=== PATIENT | male | born 1950 | race Caucasian/White ===

== ENCOUNTER → 2024-05-03 | Outpatient (CLI) | payer MEDICARE, SELFPAY ==
[2024-05-03 16:25] LABS: PSA,Total- Diagnostic 8.39 ng/mL (0.00-4.00)
== END | disposition home or self-care (01) ==
PROVIDERS: PCP Internal Medicine; Referring Provider Nurse Practitioner; Visit Provider Nurse Practitioner
DX: R97.20 Elevated prostate specific antigen [PSA] (principal)
CPT/HCPCS: 36415; 84153

== ENCOUNTER → 2024-05-30 | Outpatient (CLI) | payer MEDICARE, SELFPAY ==
--- NOTE | 2024-05-30 13:00 | PROSBIL_PTH ---
PATIENT: CLARISSA TRAN LOC: [facility] U#:[id number] AGE/SX: 74/M ROOM: RE05/30/[address]: Dr. Damion Walter MD : 1950 BED: DIS: 05/30/2024 SPEC #: [id number] RECD: 05/31/24 08:54 STATUS: DIANE REGregor #: [id number] CUCA: 05/30/24 13:[address]: Damion Walter DEPT: SURGICAL PATHOLOGY RECD BY: Galindo Lam ENTERED: 05/31/24 08:55 SP TYPE: PROST BX CARLY DR: Dr. Nolan Tate MD Tissues: A - PROSTATE RIGHT B - PROSTATE RIGHT C - PROSTATE RIGHT D - PROSTATE LEFT E - PROSTATE LEFT F - PROSTATE LEFT Procedures: PROSTATE BX HEADER OPERATION: Prostate biopsy PRE-OP DIAGNOSIS: Elevated PSA TISSUE SUBMITTED: A - Right apex, B - Right mid, C - Right base, D - Left apex, E - Left mid, F - Left base MICROSCOPIC DIAGNOSIS A. Prostate, right apex, biopsy: - Adenocarcinoma Taylor 3+4(30%)=7, 1/1 core, involving 20% of the tissue. B. Prostate, right mid, biopsy: - Benign prostate tissue. C. Prostate, right base, biopsy: - Benign prostate tissue. D. Prostate, left apex, biopsy: - Benign prostate tissue with focal active chronic inflammation. E. Prostate, left mid, biopsy: - Benign prostate tissue. F. Prostate, left base, biopsy: - Benign prostate tissue. MICROSCOPIC DESCRIPTION Slides are reviewed. GROSS DESCRIPTION A. Received in formalin in a container labeled with the patient's name, date of , and RA is a 1.5 x 0.1 cm white-traylor and wispy core biopsy of soft tissue. Submitted in toto in A1. B. Received in formalin in a container labeled with the patient's name, date of , and RM is a 1.2 x 0.1 cm white-traylor and wispy core biopsy of soft tissue. Submitted in toto in B1. C. Received in formalin in a container labeled with the patient's name, date of , and RB is a 1.0 x 0.1 cm white-traylor and wispy core biopsy of soft tissue. Submitted in toto in C1. D. Received in formalin in a container labeled with the patient's name, date of , and LA is a 1.2 x 0.1 cm white-traylor and wispy core biopsy of soft tissue. Submitted in toto in D1. E. Received in formalin in a container labeled with the patient's name, date of , and LM is a 0.8 x 0.1 cm white-traylor and wispy core biopsy of soft tissue. Submitted in toto in E 1. F. Received in formalin in a container labeled with the patient's name, date of , and LB is a 1.1 x 0.1 cm white-traylor and wispy core biopsy of soft tissue. Submitted in toto in F1. [facility] 05-31-2024 CPT: G0146
== END | disposition home or self-care (01) ==
LOC: LABSPEC 15:40
PROVIDERS: PCP Internal Medicine; Referring Provider Urology; Visit Provider Urology
DX: R97.20 Elevated prostate specific antigen [PSA] (principal)
CPT/HCPCS: 88305; G0416

== ENCOUNTER 2024-11-30 07:53 | Emergency (ER) | payer MEDICARE, SELFPAY ==
[2024-11-30 07:54] VITALS: BP 182/102; PULSE 95; RESP 18; TEMP 37.2; O2SAT 97
[2024-11-30 08:00] VITALS: BMI 37.0
--- NOTE | 2024-11-30 08:13 | EX.ED.DYSGE1 ---
HPI History of Present Illness Chief Complaint: Hypertension Detail of Chief Complaint: Elevated blood pressure reading prior to surgery Informant: patient and other (Hospital staff from preanesthesia/presurgery reunit called because of elevated blood pressure) Onset/Context/Timing Onset: Today Context: - (Presumed sudden) Timing: Continuous Quality: Elevated blood pressure Location: Cardiovascular Current Severity: Moderate Maximum Severity: Moderate Worsened by: Patient did not take his morning hypertensive meds because he was scheduled Relieved by: Not applicable Associated Symptoms Associated Symptoms: Slight bifrontal headache Narrative Narrative: Patient is a 74-year-old male. He has history of hypertension and BPH. He was scheduled to have urologic surgery by Dr. Walter. His blood pressure was elevated. He was sent to the ER. We were informed that he has not taken his medicine in 6 months. He has not seen a doctor in 6 months because his doctor retired. He reports he is compliant with his medication. He did not take this morning's meds because he was instructed not to. He denies double vision, blurred vision loss of vision. Eyes baker ears decreased hearing. Nuys trouble with speech or swallowing. Denies chest pressure, tach, tightness, heaviness, pain or dyspnea. Nuys dyspnea on exertion or orthopnea. He denies abdominal pain, nausea or vomiting. He denies skin lesion. He does have swelling of his legs. He states he is on a water pill. He denies orthopnea or PND. Prior similar symptoms: No Recent Illness/Hospitalization: No PFSH PFSH Medical History Wears dentures Wears glasses Alcohol use Heartburn Former smoker Cardiology follow-up encounter Eyelid abnormality BPH (benign prostatic hyperplasia) Nocturia Elevated PSA Urinary incontinence Hypertension Prostate cancer Home Medications ?Medication ?Instructions ?Recorded ?Last Taken ?Type amlodipine 5 mg tablet 5 mg PO QDAY 06/23/24 11/29/24 History losartan 50 mg-hydrochlorothiazide 1 tab PO QDAY 06/23/24 11/29/24 History 12.5 mg tablet tamsulosin 0.4 mg capsule 0.4 mg PO QDAY 06/23/24 11/29/24 History clonidine HCl 0.1 mg tablet 0.1 mg PO BID #60 tabs 11/30/24 Unknown Rx Allergy/AdvReac Type Severity Reaction Status Date / Time No Known Allergies Allergy Verified 11/30/24 07:57 Family History Father Cancer skin Brother Heart problem Surgical History Hx of prostate biopsy Hx of hernia repair Hx of cataract extraction Social History Smoking Status: Former smoker alcohol intake: never ROS ROS ED Constitutional Constitutional ED: Denies chills, fever(s), subjective, sweats or weight loss Eyes Eyes: Denies blurry vision, change in vision or diplopia ENT ENT ED: Denies rhinorrhea or sore throat Cardiovascular Cardiovascular: Denies chest pain, orthopnea, palpitations or paroxysmal nocturnal dyspnea Respiratory/Chest Respiratory/Chest: Denies cough, dyspnea, dyspnea on exertion, orthopnea or paroxysmal nocturnal dyspnea Gastrointestinal Gastrointestinal: Denies abdominal pain, nausea or vomiting Musculoskeletal Musculoskeletal: Denies arthralgias, back pain or myalgias Integumentary Denies rash Neurologic Neurologic: Reports headache(s); Denies paresthesias or weakness Hematologic/Lymphatic Hematologic/Lymphatic: Reports systems reviewed and no addt'l complaints, except as documented EXAM Physical Exam Const Vital Signs: 11/30/24 07:54 11/30/24 09:53 11/30/24 10:37 Temperature 98.9 F Temperature Source Oral Pulse Rate 95 74 82 Respiratory Rate 18 16 Blood Pressure 182/102 H 196/127 H 190/103 H Blood Pressure Mean 128 150 132 Pulse Ox 97 100 Oxygen Delivery Method Room Air Room Air Positive well nourished and well developed Constitutional Narrative: Blood pressure is slightly elevated 182/102. Repeat was 214/124. Patient appears no distress. BMI is 37. General Appearance ED: well developed; Negative for pallor HEENT Reports moist mucous membranes HEENT Narrative: Head is atraumatic and normocephalic. Ears normal Eyes PERRL and EOMs intact bilaterally General Eye ED: Negative for pale conjunctiva or scleral icterus Neck no lymphadenopathy, supple and no JVD Chest Wall inspection of chest normal and palpation of chest normal Resp normal respiratory effort and clear to auscultation bilaterally Cardio regular rate, regular rhythm, S1 normal heart sound, S2 normal heart sound and no murmurs GI normal to inspection, nondistended, normoactive bowel sounds, non-tender, non-distended and no masses Extremity Extremity Narrative: Otherwise unremarkable. General Extremety ED: Yes edema General Extremity: edema Neuro CN's II-XII intact bilaterally and no sensory deficits noted Sensorium / Orientation: alert Motor Exam: strength 5/5 throughout Psych mental status grossly normal Skin no rashes or lesions noted, no wounds and skin turgor normal General Skin Exam: elasticity normal; Negative for jaundice or pallor MDM MDM MDM Narrative Medical decision making narrative: Patient with asymptomatic hypertension. Suspect this is due to the fact that he did not take his amlodipine, losartan hydrochlorothiazide combination. Will obtain blood work since he has not had any recently. Will monitor his blood pressure. He will need follow-up with a doctor since his doctor retired and the doctor was assigned to left the area. As 0900 blood pressure was 195/135. Will order patient's morning antihypertensive meds. Lab Data Labs: Laboratory Results - last 24 hr 11/30/24 11/30/24 08:10 09:00 Sodium 139 Potassium 4.0 Chloride 101 Carbon Dioxide 27.6 Anion Gap 11 BUN 15 Creatinine 1.04 Estim Creat Clear Calc 82.28 Est GFR (MDRD) Non-Af 76 BUN/Creatinine Ratio 14.0 Glucose 115 H Calcium 9.3 Urine Color Yellow Urine Clarity Clear Urine pH 7.0 Ur Specific Orosi 1.010 Urine Protein 15 H Urine Glucose (UA) Normal Urine Ketones Negative Urine Occult Blood Negative Urine Nitrite Negative Urine Bilirubin Negative Urine Urobilinogen Normal Ur Leukocyte Esterase Negative Urine RBC 0 SEEN Urine WBC 0 SEEN Ur Squamous Epith Cells 0 SEEN Urine Bacteria 0 SEEN Urine Mucus 0 SEEN Treatment and Re-Evaluation :: The patient was reassessed blood pressure was 194/127. Clonidine was ordered and will reassess. Patient was reassessed at 1145. His blood pressure is 148/104. Will discharge with prescription for clonidine. He has an appointment this coming Thursday to see Dr. Fco dejesus. Discharge Plan Triage Chief Complaint: Hypertension ED Provider: Dex Lopes Dx/Rx/DC Orders Clinical Impression: Asymptomatic hypertensive urgency, Prostate cancer Instructions: ED High Blood Pressure Hypertension Prescriptions: New clonidine HCl 0.1 mg tablet 0.1 mg PO BID Qty: 60 0RF No Action amlodipine 5 mg tablet 5 mg PO QDAY losartan-hydrochlorothiazide 50-12.5 mg tablet 1 tab PO QDAY tamsulosin 0.4 mg capsule 0.4 mg PO QDAY Primary Care Provider: Care Physician,No Primary Referrals: Santiago Fernández MD [Non-Staff, Family Practice] - Keep [facility]y appointment Care Physician,No Primary [Primary Care Provider, Medical] Print Language: Khmer Disposition Disposition: Home, Self Care
[2024-11-30 09:04] LABS: Anion Gap 11 (5-15); BUN 15 mg/dL (4-19); BUN/Creat Ratio 14.0 RATIO (10-20); Calcium,Total 9.3 mg/dL (7.6-11.0); Carbon Dioxide 27.6 mmol/L (21.0-32.0); Chloride 101 mmol/L (98-108); Estimated Creatinine Clearance 82.28 ml/min (50-250); Glucose 115 mg/dL (70-99); Potassium 4.0 mmol/L (3.3-5.1)
[2024-11-30 09:07] LABS: Mucous, Urine 0 SEEN /hpf (<or=2+); Red Blood Cells-Urine 0 SEEN /hpf (0-5); Squamous Epithelial Cells - UA 0 SEEN /hpf (0-5)
[2024-11-30 09:18] LABS: Color, Urine Yellow (Yellow); Glucose, Dipstick Normal (Normal); Ketone-Dipstick Negative (Negative); Leukocyte Esterase-Dipstick Negative /ul (Negative); Nitrite-Dipstick Negative (Negative); Occult Blood-Urine Negative /ul (Negative); Protein-Dipstick 15 mg/dl (Negative); Specific Gravity, Urine 1.010 (1.002-1.030); Urine Bilirubin Dipstick Negative (Negative)
[2024-11-30 09:53] VITALS: BP 196/127; PULSE 74
[2024-11-30 10:37] VITALS: BP 190/103; PULSE 82; RESP 16; O2SAT 100
[2024-11-30 12:12] VITALS: BP 164/105; PULSE 87; RESP 16; TEMP 36.6; O2SAT 100
== END 2024-11-30 12:12 | disposition home or self-care (01) ==
PROVIDERS: Emergency Provider Emergency Medicine; Visit Provider Emergency Medicine
DX: I16.0 Hypertensive urgency (principal); C61 Malignant neoplasm of prostate; I10 Essential (primary) hypertension; Z79.899 Other long term (current) drug therapy; Z87.891 Personal history of nicotine dependence
CPT/HCPCS: 80048; 81001; 99284

== ENCOUNTER 2024-12-16 05:53 | Day surgery (SDC) | payer MEDICARE, SELFPAY ==
--- NOTE | 2024-11-24 17:06 | PAT.ANESEVAL ---
Pre-Assessment Diagnosis/Proposed Procedure Planned Operative Procedure(s): SPACE OAR Anesthesia History Anesthesia History - vice president quality improvement: Anesthesia History - vice president quality improvement Hx Hospitalization No 11/24/24 13:02 Any Problems With Anesthesia No 11/24/24 13:02 Cholinesterase deficiency No 11/24/24 13:02 You/Your Family Experience No 11/24/24 13:02 fever (hyperthermia) with Relationship Recent Exposure to Contagious Disease Does patient have nerve No 11/24/24 13:02 stimulator Patient instructed to have device shut off --Does patient have Pacemaker or ICD? When Was Last Pacemaker Check QUESTION #4 FULL TEXT: You/Your Family Experience fever (hyperthermia) with Anesthesia Last Oral Intake Last Oral intake: Last Oral Intake NPO since Meds taken in AM with sips of water? Meds patient instructed to take am of surgery PONV PONV - vice president quality improvement: PONV - vice president quality improvement Female No 11/24/24 13:02 HX of Motion Sickness No 11/24/24 13:02 HX of N/V After Surgery No 11/24/24 13:02 Non-Smoker Yes 11/24/24 13:02 Duration of Surgery greater No 11/24/24 13:02 than 60 minutes Number of Risk Factors 1 11/24/24 13:02 PONV Score Low Risk 11/24/24 13:02 Height & Weight Height & Weight: Anesthesia: Height & Weight Height 5 ft 10 in 11/18/24 09:36 Respiratory Assessment Respiratory Assessment - vice president quality improvement: Respiratory Tract Infection Hx - vice president quality improvement Hx Respiratory Tract Infection No 11/24/24 13:02 STOP Sleep Apnea STOP Sleep Apnea - vice president quality improvement: STOP Sleep Apnea - vice president quality improvement Hx Hypertension Yes: CONTROLLED WITH MEDS 11/24/24 13:02 Hx Sleep Apnea No 11/24/24 13:02 CPAP BIPAP Do you snore loudly (louder No 11/24/24 13:02 than talking or can be heard Do you often feel tired/ No 11/24/24 13:02 fatigued/ sleepy during daytime? Has anyone observed you stop No 11/24/24 13:02 breathing during sleep? STOP Results Negative 11/24/24 13:02 QUESTION #5 FULL TEXT : Do you snore loudly (louder than talking or can be heard through closed doors)? 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 Specify any problems Hx of Preganancy in last 3 N/A 11/24/24 13:02 Months Nurse Filling Out Transfusion [email or web address] 11/24/24 13:02 & Questions: Date: 11/24/24 11/24/24 13:02 Time: 13:06 11/24/24 13:02 Patient unable to answer at this time (ie. confused, unrespo /Reproduction History /Reproductive History - vice president quality improvement: /Reproductive Hx- vice president quality improvement Hx Now No 11/24/24 13:02 Gestational Age (in weeks): EDC: Hx Hx Para Hx Section SAB No 11/24/24 13:02 PFSH Medical History Wears dentures Wears glasses Alcohol use Heartburn Former smoker Cardiology follow-up encounter Eyelid abnormality BPH (benign prostatic hyperplasia) Nocturia Elevated PSA Urinary incontinence Hypertension Prostate cancer Home Medications ?Medication ?Instructions ?Recorded ?Last Taken ?Type amlodipine 5 mg tablet 5 mg PO QDAY 06/23/24 Unknown History losartan 50 mg-hydrochlorothiazide 1 tab PO QDAY 06/23/24 Unknown History 12.5 mg tablet tamsulosin 0.4 mg capsule 0.4 mg PO QDAY 06/23/24 Unknown History Allergy/AdvReac Type Severity Reaction Status Date / Time No Known Allergies Allergy Verified 11/24/24 13:00 Family History Father Cancer skin Brother Heart problem Surgical History Hx of prostate biopsy Hx of hernia repair Hx of cataract extraction Social History Smoking Status: Former smoker alcohol intake: never Audit: Pertinent Findings Pertinent Findings EKG Perinent findings: October 13, 2023. Normal sinus rhythm. Stress test pertinent findings: Negative for ischemia or infarct. Echo (EF%) pertinent findings: September 11, 2023. EF is 60 to 65%. Moderate to severe dilation of the ascending aorta at 4.7 cm. Aortic root is 4.1 cm. Mild AI. Consult pertinent findings: July 13, 2024. Dr. Montoya. 1. Aneurysm of ascending aorta-4.7 x 4.6 cm in 2022. Apparently unchanged in 2023. Continue losartan. 2. Aortic root dilation?at 4.1 cm. With mild AI. 3. Dyspnea on exertion-negative stress test for ischemia or infarct. EF is normal. Patient is euvolemic. BMI of 40 is probably contributing to this. Patient is exercising more and shortness of breath is decreasing. 4. Hypertension-controlled 5. MARCI?compliant with CPAP. Recommendation Anesthesia Recommendation Anesthesia recommendation: OPTIMIZED for anesthesia
[2024-11-30 06:58] VITALS: BP 207/115; PULSE 100; RESP 16; TEMP 36.4; O2SAT 93; BMI 36.4
[2024-11-30] MEDS: Lactated Ringers 1,000 ML 15 ML IV (07:22)
--- NOTE | 2024-11-30 07:58 | PCM.PRE.AN2 ---
ASA Classification* ASA Classification ASA Classification: 3 Assessment & Plan Anesthesia* Anesthesia Assessment Anesthesia Assessment: Discussed sedation and/or anesthesia options, risks, benefits, and alternatives with patient/parents/legal guardian/POA. Questions invited. The patient/parents/legal guardian/POA seems to understand and agrees to proceed with anesthesia plan. Reviewed the physical assessment, medical history, allergy history and patient home medications list prior to surgery/procedure/anesthetic and documented any changes. Performed airway and anesthesia risk assessments. Procedural Plan Procedural Plan:: NOT optimized for anesthesia Add'l anesthesia plan details: Hypertensive crisis. In the setting of not having a current primary care. Transferred to the ED. Cancel procedure today. Anesthesia Type Anesthesia Type: MAC (Procedure canceled. 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 When Was Last Pacemaker Check QUESTION #4 FULL TEXT: You/Your Family Experience fever (hyperthermia) with Anesthesia Last Oral Intake Last Oral intake: Last Oral Intake NPO since 20:00 11/30/24 06:58 Meds taken in AM with sips of water? Meds patient instructed to take am of surgery PONV PONV - master mechanic: PONV - master mechanic Female No 11/24/24 13:02 HX of Motion Sickness No 11/24/24 13:02 HX of N/V After Surgery No 11/24/24 13:02 Non-Smoker Yes 11/24/24 13:02 Duration of Surgery greater No 11/24/24 13:02 than 60 minutes Number of Risk Factors 1 11/24/24 13:02 PONV Score Low Risk 11/24/24 13:02 Height & Weight Height & Weight: Anesthesia: Height & Weight Height 5 ft 10 in 11/30/24 06:58 Weight: 115.212 kg 11/30/24 06:58 Body Mass Index (BMI) 36.4 11/30/24 06:58 Respiratory Assessment Respiratory Assessment - master mechanic: Respiratory Tract Infection Hx - master mechanic Hx Respiratory Tract Infection No 11/24/24 13:02 STOP Sleep Apnea STOP Sleep Apnea - master mechanic: STOP Sleep Apnea - master mechanic Hx Hypertension Yes: CONTROLLED WITH MEDS 11/24/24 13:02 Hx Sleep Apnea No 11/24/24 13:02 CPAP BIPAP Do you snore loudly (louder No 11/24/24 13:02 than talking or can be heard Do you often feel tired/ No 11/24/24 13:02 fatigued/ sleepy during daytime? Has anyone observed you stop No 11/24/24 13:02 breathing during sleep? STOP Results Negative 11/24/24 13:02 QUESTION #5 FULL TEXT : Do you snore loudly (louder than talking or can be heard through closed doors)? 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 Specify any problems Hx of Preganancy in last 3 N/A 11/24/24 13:02 Months Nurse Filling Out Transfusion [email or web address] 11/24/24 13:02 & Questions: Date: 11/24/24 11/24/24 13:02 Time: 13:06 11/24/24 13:02 Patient unable to answer at this time (ie. confused, unrespo /Reproduction History /Reproductive History - master mechanic: /Reproductive Hx- master mechanic Hx Now No 11/24/24 13:02 Gestational Age (in weeks): EDC: Hx Hx Para Hx Section SAB No 11/24/24 13:02 PFS Medical History Wears dentures Wears glasses Alcohol use Heartburn Former smoker Cardiology follow-up encounter Eyelid abnormality BPH (benign prostatic hyperplasia) Nocturia Elevated PSA Urinary incontinence Hypertension Prostate cancer Home Medications ?Medication ?Instructions ?Recorded ?Last Taken ?Type amlodipine 5 mg tablet 5 mg PO QDAY 06/23/24 11/29/24 History losartan 50 mg-hydrochlorothiazide 1 tab PO QDAY 06/23/24 11/29/24 History 12.5 mg tablet tamsulosin 0.4 mg capsule 0.4 mg PO QDAY 06/23/24 11/29/24 History Allergy/AdvReac Type Severity Reaction Status Date / Time No Known Allergies Allergy Verified 11/30/24 07:57 Family History Father Cancer skin Brother Heart problem Surgical History Hx of prostate biopsy Hx of hernia repair Hx of cataract extraction Social History Smoking Status: Former smoker alcohol intake: never Review of Systems (Anesthesia) ROS Narrative System reviewed and no additional complaints, except as documented.
[2024-11-30 08:00] VITALS: BP 207/115; PULSE 100; RESP 16; TEMP 36.4; O2SAT 93
--- NOTE | 2024-12-08 16:02 | PAT.ANESEVAL ---
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 When Was Last Pacemaker Check QUESTION #4 FULL TEXT: You/Your Family Experience fever (hyperthermia) with Anesthesia Last Oral Intake Last Oral intake: Last Oral Intake NPO since 20:00 11/30/24 06:58 Meds taken in AM with sips of water? Meds patient instructed to take am of surgery PONV PONV - executive vice president of sales: PONV - executive vice president of sales Female No 11/24/24 13:02 HX of Motion Sickness No 11/24/24 13:02 HX of N/V After Surgery No 11/24/24 13:02 Non-Smoker Yes 11/24/24 13:02 Duration of Surgery greater No 11/24/24 13:02 than 60 minutes Number of Risk Factors 1 11/24/24 13:02 PONV Score Low Risk 11/24/24 13:02 Height & Weight Height & Weight: Anesthesia: Height & Weight Height 5 ft 10 in 11/30/24 06:58 Weight: 115.212 kg 11/30/24 06:58 Body Mass Index (BMI) 36.4 11/30/24 06:58 Respiratory Assessment Respiratory Assessment - executive vice president of sales: Respiratory Tract Infection Hx - executive vice president of sales Hx Respiratory Tract Infection No 11/24/24 13:02 STOP Sleep Apnea STOP Sleep Apnea - executive vice president of sales: STOP Sleep Apnea - executive vice president of sales Hx Hypertension Yes: CONTROLLED WITH MEDS 11/24/24 13:02 Hx Sleep Apnea No 11/24/24 13:02 CPAP BIPAP Do you snore loudly (louder No 11/24/24 13:02 than talking or can be heard Do you often feel tired/ No 11/24/24 13:02 fatigued/ sleepy during daytime? Has anyone observed you stop No 11/24/24 13:02 breathing during sleep? STOP Results Negative 11/24/24 13:02 QUESTION #5 FULL TEXT : Do you snore loudly (louder than talking or can be heard through closed doors)? 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 Specify any problems Hx of Preganancy in last 3 N/A 11/24/24 13:02 Months Nurse Filling Out Transfusion [email or web address] 11/24/24 13:02 & Questions: Date: 11/24/24 11/24/24 13:02 Time: 13:06 11/24/24 13:02 Patient unable to answer at this time (ie. confused, unrespo /Reproduction History /Reproductive History - executive vice president of sales: /Reproductive Hx- executive vice president of sales Hx Now No 11/24/24 13:02 Gestational Age (in weeks): EDC: Hx Hx Para Hx Section SAB No 11/24/24 13:02 PFSH Medical History Wears dentures Wears glasses Alcohol use Heartburn Former smoker Cardiology follow-up encounter Eyelid abnormality BPH (benign prostatic hyperplasia) Nocturia Elevated PSA Urinary incontinence Hypertension Prostate cancer Home Medications ?Medication ?Instructions ?Recorded ?Last Taken ?Type amlodipine 5 mg tablet 5 mg PO QDAY 06/23/24 11/29/24 History losartan 50 mg-hydrochlorothiazide 1 tab PO QDAY 06/23/24 11/29/24 History 12.5 mg tablet tamsulosin 0.4 mg capsule 0.4 mg PO QDAY 06/23/24 11/29/24 History clonidine HCl 0.1 mg tablet 0.1 mg PO BID #60 tabs 11/30/24 Unknown Rx Allergy/AdvReac Type Severity Reaction Status Date / Time No Known Allergies Allergy Verified 11/30/24 07:57 Family History Father Cancer skin Brother Heart problem Surgical History Hx of prostate biopsy Hx of hernia repair Hx of cataract extraction Social History Smoking Status: Former smoker alcohol intake: never Audit: Pertinent Findings HISTORY of Pertinent Findings History of Pertinent Findings: EKG Pertinent Findings EKG Perinent findings October 13, 2023. Normal 11/24/24 17:10 sinus rhythm. Stress Test Pertinent Findings Stress test pertinent findings Negative for ischemia or 11/24/24 17:26 infarct. Echo Pertinent Findings Echo (EF%) pertinent findings September 11, 2023. EF is 60 to 11/24/24 17:16 65%. Moderate to severe dilation of the ascending aorta at 4.7 cm. Aortic root is 4.1 cm. Mild AI. Consult Pertinent Findings Consult pertinent findings July 13, 2024. Dr. Montoya. 11/24/24 17:26 1. Aneurysm of ascending aorta-4.7 x 4.6 cm in 2022. Apparently unchanged in 2023. Continue losartan. 2. Aortic root dilation?at 4.1 cm. With mild AI. 3. Dyspnea on exertion- negative stress test for ischemia or infarct. EF is normal. Patient is euvolemic. BMI of 40 is probably contributing to this. Patient is exercising more and shortness of breath is decreasing. 4. Hypertension-controlled 5. MARCI?compliant with CPAP. Pertinent Findings Additional pertinent findings: Per note scanned in medical record. Patient presented for surgery on 11/30/2024 and had to be canceled due to hypertensive crisis. Needs evaluated prior to being rescheduled. Has appointment in [facility] to work on 12/06/2024. Per note on 12/06/2024 patient is medically cleared but will need cardiac clearance. We told him to see cardiology. Note Dr. Gonzalez wants to proceed without cardiac clearance. BP has been stable and patient can't see cardiology until end of December Recommendation Anesthesia Recommendation Anesthesia recommendation: OPTIMIZED for anesthesia (Note scanned in epic states that Dr. Hilton wants to proceed without cardiac clearance. BP has been stable and patient cannot see cardiology until end of December.)
[2024-12-16] VITALS (9 sets, daily range): BP systolic 134–145; BP diastolic 94–103; PULSE 76–95; RESP 16–18; TEMP 36.3–36.7; O2SAT 89–98; BMI 37.0
--- OUTSIDE RECORDS SUMMARY | 2024-12-16 05:56 | XMS RPT_ITS | CCD ---
Author Organization [facility] Care Team Providers Care All Round Butcher Name Role Phone Yobani LENNON, Austin Murillo Unavailable Yobani LENNON, Austin Murillo Unavailable Marc LENNON, Dr. Bernal Unavailable [phone] Sammy CLINICAL DATA ANALYST, Eli Chow Unavailable Unavailable Nam CLINICAL DATA ANALYST, Lizzy Unavailable Unavailable COTTON WASHER-C, Santino Salgado Unavailable Trevon RN, Taya Platt Unavailable Unavaila enrrique Ryan PA-C, Ayaka Montemayor Unavailable Partha CLINICAL DATA ANALYST, Laurence L Unavailable Unavailab le Rossi CLINICAL DATA ANALYST, Sri M Unavailable Unavailab le La Dolores CLINICAL DATA ANALYST, Génesis De La Fuente Unavailable Unavailab le Vess CLINICAL DATA ANALYST, Nerane L Unavailable Unavailable Wengerd CLINICAL DATA ANALYST, Allyson Unavailable Unavailabl e Unavailable Unavailable Unavailable Unavailable Lea LENNON, Dr. Francisco Primary Care Provider [phone] Milagro Mckeon Attending Provider [phone] Milagro Mckeon Referring Provider Jose Angel LENNON, Dr. Damion Leal Attending Provider Dr. Damion Walter MD Referring Provider BRANDEN MADERA MD Attending UnavailDR ERMELINDA Bruno MD Primary Care Unavailable ERMELINDA TATE MD Admitting Unavailable ERMELINDA TATE MD Primary Care Unavailable ERMELINDA TATE MD Consulting Unavailable ERMELINDA TATE MD Attending Unavailable PROVIDER, UNKNOWN Consulting Unavailable PROVIDER, UNKNOWN Consulting Unavailable PROVIDER, UNKNOWN Consulting Unavailable BRANDEN MADERA MD Admitting UnavailBRANDEN Vazquez MD Primary Care Unavailabl e BRANDEN MADERA MD Attending Unavailabl e SANTOS DENISE MD Referring Unavailable ERMELINDA TATE MD Consulting Unavailable PROVIDER, UNKNOWN Consulting Unavailable PROVIDER, UNKNOWN Consulting Unavailable PROVIDER, UNKNOWN Consulting Unavailable BRANDEN MADERA MD Primary Care Unavailabl e BRANDEN MADERA MD Attending Unavailabl e ERMELINDA TATE MD Consulting Unavailable BRANDEN MAEDRA MD Admitting Unavailabl e PROVIDER, UNKNOWN Consulting Unavailable PROVIDER, UNKNOWN Consulting Unavailable PROVIDER, UNKNOWN Consulting Unavailable BRANDEN MADERA MD Admitting Unavailabl e BRANDEN MADERA MD Primary Care Unavailabl BRANDEN Khoury MD Attending Unavailabl e ERMELINDA TATE MD Consulting Unavailable PROVIDER, UNKNOWN Consulting Unavailable PROVIDER, UNKNOWN Consulting Unavailable PROVIDER, UNKNOWN Consulting Unavailable SANTOS DENISE MD Attending Unavailable SANTOS DENISE MD Admitting Unavailable ERMELINDA TATE MD Consulting Unavailable ERMELINDA TATE MD Referring Unavailable SANTOS DENISE MD Primary Care Unavailable PROVIDER, UNKNOWN Consulting Unavailable PROVIDER, UNKNOWN Consulting Unavailable PROVIDER, UNKNOWN Consulting Unavailable ERMELINDA TATE MD Consulting Unavailable ERMELINDA TATE MD Attending Unavailable ERMELINDA TATE MD Primary Care Unavailable ERMELINDA TATE MD Admitting Unavailable PROVIDER, UNKNOWN Consulting Unavailable PROVIDER, UNKNOWN Consulting Unavailable PROVIDER, UNKNOWN Consulting Unavailable ERMELINDA TATE MD Primary Care Unavailable ERMELINDA TATE MD Attending Unavailable ERMELINDA TATE MD Admitting Unavailable ERMELINDA TATE MD Consulting Unavailable PROVIDER, UNKNOWN Consulting Unavailable PROVIDER, UNKNOWN Consulting Unavailable PROVIDER, UNKNOWN Consulting Unavailable ERMELINDA TATE MD Primary Care Unavailable AUSTIN CHAMBERLAIN Consulting Unavailable ERMELINDA TATE MD Attending Unavailable ERMELINDA TATE MD Admitting Unavailable PROVIDER, UNKNOWN Consulting Unavailable PROVIDER, UNKNOWN Consulting Unavailable PROVIDER, UNKNOWN Consulting Unavailable ERMELINDA TATE MD Consulting Unavailable ERMELINDA TATE MD Attending Unavailable ERMELINDA TATE MD Admitting Unavailable ERMELINDA TATE MD Primary Care Unavailable PROVIDER, UNKNOWN Consulting Unavailable PROVIDER, UNKNOWN Consulting Unavailable PROVIDER, UNKNOWN Consulting Unavailable ERMELINDA TATE MD Primary Care Unavailable ERMELINDA TATE MD Consulting Unavailable ERMELINDA TATE MD Attending Unavailable ERMELINDA TATE MD Admitting Unavailable PROVIDER, UNKNOWN Consulting Unavailable PROVIDER, UNKNOWN Consulting Unavailable PROVIDER, UNKNOWN Consulting Unavailable NAM, ARVIND K Consulting Unavailable NAM, ARVIND K Attending Unavailable ARVIND GOMES K Admitting Unavailable MIREYA, ARVIND K Primary Care Unavailable PROVIDER, UNKNOWN Consulting Unavailable PROVIDER, UNKNOWN Consulting Unavailable Lea LENNON, Dr. Francisco Primary Care Provider Lea LENNON, Dr. Francisco Referring Provider Margareth DUARTE, Dr. Escobedo Attending Provider Lea LENNON, Dr. Francisco Primary Care Physician Margareth DUARTE, Dr. Escobedo Attending Physician Margareth DUARTE, Dr. Escobedo Referring Provider Moses LENNON, Dr. Kowalski Emergency Department Physician Care Physician, No Primary Primary Care Physicia n Unavailable Arvind Zuluaga Referring Unavailable Care Physician, No Primary Primary Care Unava ilable Arvind Zuluaga Attending Unavailable Jose Angel, Damion Leal Attending Unavailable Jose Angel, Damion Leal Referring Unavailable Care Physician, No Primary Primary Care Unava ilable Dex Lopes Attending Unavailable Care Physician, No Primary Primary Care Unava ilable Jose Angel, Damion Leal Attending Unavailable Jose Angel, Damion Leal Referring Unavailable Latouf, Butros Primary Care Unavailable Latouf, Butros Primary Care Unavailable Latouf, Butros Referring Unavailable Arvind Zuluaga Attending Unavailable Jose Angel, Damion Leal Referring Unavailable Latouf, Butros Primary Care Unavailable Arvind Zuluaga Attending Unavailable Arvind Zuluaga Attending Unavailable Latouf, Butros Referring Unavailable Latouf, Butros Primary Care Unavailable Latouf, Butros Primary Care Unavailable Maggi Wilson Attending Unavailable Latouf, Butros Primary Care Unavailable [place], Milagro Attending Unavailable [place], Milagro Referring Unavailable Arvind Zuluaga Referring Unavailable Latouf, Butros Primary Care Unavailable Arvind Zuluaga Attending Unavailable Medications Current Medications Medication Drug Class(es) Dates Sig (Normalized) Sig (Original) amLODIPine 5 mg oral tablet (19 sources) Dihydropyridine Calcium Channel Calista Start: 06-23-2024 take 1 tablet by mouth once daily Amlodipine 5 mg tablet Active 5 mg PO daily June 23, 2024 12:00am Non-compliance of drug therapy Start: 02-12-2023 amLODIPine 5 m g tablet ; 1 (one) Tablet qd for 0 days Quantity: 30 {Tablet} Refills: 5 Ordered: 12-Feb-2023 LEANN BrowningN Lizzy Start: 12-Feb-2023 cloNIDine hydrochloride 0.1 mg oral tablet (1 source) Central alpha-2 Adrenergic Agonist Start: 11-30-2024 take 1 tablet by mouth twice daily hydroCHLOROthiazide 12.5 mg / losartan potassium 50 mg oral tablet (19 sources) Thiazide Diuretic, Angiotensin 2 Receptor Calista Start: 06-23-2024 Losartan-Hydr ochlorothiazi de 50-12.5 mg tablet Active 1 {tbl} PO daily June 23, 2024 12:00am Non-complianc e of drug therapy Start: 07-29-2023 losartan 50 mg -hydrochlorothiazide 12.5 mg tablet ; 2 (two) tablet qd for 90 days Quantity: 180 {Tablet} Refills: 1 Ordered: 29-Jul-2023 MD Austin Chamberlain Start: 29-Jul-2023 Start: 03-19-2023 losartan 50 mg -hydrochlorothiazide 12.5 mg tablet ; 2 (two) tablet qd for 90 days Quantity: 180 {Tablet} Refills: 0 Ordered: 19-Mar-2023 MD Austin Chamberlain Start: 19-Mar-2023 Start: 03-18-2023 End: 06-17-2023 losartan 50 mg-hydrochloroth iazide 12.5 mg tablet ; 2 (two) tablet qd for 90 days Quantity: 180 {Tablet} Refills: 0 Ordered: 19-Mar-2023 MD Austin Chamberlain Start: 19-Mar-2023 End: 17-Jun-2023 Status: Inactive Start: 02-18-2023 losartan 50 mg -hydrochlorothiazide 12.5 mg tablet ; 2 (two) tablet qd for 0 days Quantity: 30 {Tablet} Refills: 0 Ordered: 18-Feb-2023 MD Austin Chamberlain Start: 18-Feb-2023 Start: 02-04-2023 losartan 50 mg -hydrochlorothiazide 12.5 mg tablet ; 2 (two) tablet qd for 0 days Quantity: 30 {Tablet} Refills: 0 Ordered: 04-Feb-2023 MD Austin Chamberlain Start: 04-Feb-2023 tamsulosin hydrochloride 0.4 mg oral capsule (19 sources) alpha-Adrenergic Calista Start: 06-23-2024 take 1 capsule by mouth once daily Tamsulosin 0.4 mg capsule Active 0.4 mg PO daily June 23, 2024 12:00am Complies with drug therapy Start: 12-15-2022 tamsulosin 0.4 mg capsule ; 1 (one) capsule qd for 0 days Quantity: 90 {Capsule} Refills: 3 Ordered: 15-Dec-2022 GABY Richey Sri Cheatham Start: 15-Dec-2022 Completed/Discontinued Medications Medication Drug Class(es) Dates Sig (Normalized) Sig (Original) cephalexin 500 mg oral capsule (16 sources) Cephalosporin Antibacterial Start: 02-20-2012 End: 03-01-2012 take 1 capsule by mouth three times daily CEPHALEXIN, 500MG (Oral Capsule) ; 1 Capsule three times daily for 10 days Quantity: 30 {Capsule} Refills: 0 Ordered: 31-Dec-2012 MD Austin Chamberlain Start: 20-Feb-2012 End: 01-Mar-2012 Status: Inactive erythromycin 0.005 mg/mg ophthalmic ointment (16 sources) Macrolide, Macrolide Antimicrobial Start: 05-06-2011 End: 05-11-2011 ERYTHROMYCIN, 5MG/GM (Ophthalmic Ointment) ; 1 applicator(s) three times daily for 5 days Quantity: 3.5 {gram(s)} Refills: 0 Ordered: 06-May-2011 GABY Montenegro Génesis De La Fuente Start: 06-May-2011 End: 11-May-2011 Status: Inactive hydroCHLOROthiazide 12.5 mg / valsartan 160 mg oral tablet (16 sources) Thiazide Diuretic, Angiotensin 2 Receptor Calista Start: 12-08-2022 End: 01-29-2023 Diovan HCT 160 mg-12.5 mg tablet ; 1 (one) Tablet qd for 0 days Quantity: 90 {Tablet} Refills: 1 Ordered: 29-Jan-2023 MD Austin Chamberlain Start: 08-Dec-2022 End: 29-Jan-2023 Status: Inactive losartan potassium 50 mg oral tablet (16 sources) Angiotensin 2 Receptor Calista Start: 04-05-2015 End: 11-03-2018 take 1 tablet by mouth once daily Losartan Potassium 50 MG Oral Tablet ; 1 (one) Tablet qd for 0 days Quantity: 90 {Tablet} Refills: 1 Ordered: 03-Nov-2018 GABY Keene Start: 05-Apr-2015 End: 03-Nov-2018 Status: Inactive meloxicam 15 mg oral tablet (16 sources) Nonsteroidal Anti-inflammatory Drug Start: 11-14-2014 End: 11-03-2018 take 1 tablet by mouth once daily Meloxicam 15 MG Oral Tablet ; 1 (one) Tablet Tablet qd for 0 days Quantity: 30 {Tablet} Refills: 5 Ordered: 03-Nov-2018 GABY Keene Start: 14-Nov-2014 End: 03-Nov-2018 Status: Inactive traMADol hydrochloride 50 mg oral tablet (16 sources) Opioid Agonist Start: 11-07-2015 End: 11-03-2018 take 1 tablet by mouth every four to six hours as needed Ultram 50 MG Oral Tablet ; 1 (one) Tablet every 4-6 hours as needed for 0 days Quantity: 30 {Tablet} Refills: 0 Ordered: 03-Nov-2018 GABY Keene Start: 07-Nov-2015 End: 03-Nov-2018 Status: Inactive Comments: Medication taken as needed. Comment on above: Medication taken as needed. Problems Active Problems Problem Classification Problem Date Documented Date Episodic/Chronic Abdominal hernia (20 sources) Umbilical hernia; Translations: [Umbilical hernia without obstruction or gangrene] 01-29-2023 Episodic Administrative/social admission (20 sources) Issue of repeat prescriptions 11-14-2014 Episodic Cancer of prostate (11 sources) Primary malignant neoplasm of prostate; Translations: [Malignant neoplasm of prostate] Onset: 11-18-2024 06-27-2024 Chronic Essential hypertension (20 sources) Benign hypertension; Translations: [Essential (primary) hypertension] Onset: 12-14-2024 01-29-2023 Chronic Hyperplasia of prostate (20 sources) Benign prostatic hyperplasia; Translations: [Benign prostatic hyperplasia with lower urinary tract symptoms] 01-29-2023 Chronic Hypertension with complications and secondary hypertension (1 source) Hypertensive urgency ; Translations: [Hypertensive urgency] 11-30-2024 Chronic Nonspecific chest pain (20 sources) Chest pain; Translations: [Chest pain, unspecified] 01-29-2023 Episodic Nutritional deficiencies (1 source) Vitamin D deficiency, unspecified; Translations: [Vitamin D deficiency, unspecified] Onset: 05-31-2024 Chronic Other circulatory disease (20 sources) Elevated blood pressure reading without diagnosis of hypertension 02-01-2013 Episodic Other non-traumatic joint disorders (16 sources) Knee pain; Translations: [Pain in right knee] 02-01-2013 Episodic Other nutritional; endocrine; and metabolic disorders (14 sources) Obesity caused by energy imbalance; Translations: [Morbid (severe) obesity due to excess calories] 06-16-2023 Chronic Other skin disorders (16 sources) Skin tag; Translations: [Other hypertrophic disorders of the skin] 09-12-2013 Episodic Other upper respiratory infections (20 sources) Acute sinusitis; Translations: [Acute sinusitis, unspecified] 02-20-2012 Episodic Poisoning by nonmedicinal substances (20 sources) Bee sting; Translations: [Toxic effect of venom of bees, accidental (unintentional), initial encounter] 01-29-2023 Episodic Superficial injury; contusion (20 sources) Contusion of rib; Translations: [Contusion of unspecified front wall of thorax, initial encounter] 03-30-2019 Episodic Unclassified (16 sources) wants referral - pt was seen 03/2019 for herniapt is here today because he wants a referral to get it taken care of pt has been more active, so he has been noticing it more states it is bigger then it wasat times its uncomfortable reviewed by [facility] 08-27-2022 Unclassified (16 sources) Follow Up for Multiple Chronic Conditions - The patient is here for follow-up of hypertension. The patient always takes the prescribed medications. No side effects noted (Has been out of medication for 1 week. ). The patient has an active lifestyle but no regular exercise program. The patient's out of office blood pressure checks occur rarely and dietary compliance is fairly good usually adhering to recommendations. The patient states that there is no recent angina or dyspnea, weight has decreased (down 5 pounds.) and headaches are rarely noted. 11-14-2014 Unclassified (16 sources) Follow Up for Multiple Chronic Conditions - The patient is here for follow-up of hypertension. The patient always takes the prescribed medications. No side effects noted (needs refill). The patient has an active lifestyle but no regular exercise program. The patient's out of office blood pressure checks occur occasionally and dietary compliance is fairly good usually adhering to recommendations. The patient states that there is no recent angina or dyspnea, weight is unchanged and they do not have headaches. Note for Multiple chronic conditions follow-up: reviewed by [facility] 03-10-2014 Unclassified (16 sources) Well Adult, male - The patient feels well with minor complaints (Pt here physical. UTD with Teteanus. He has few concerns today. He had hx of high blood pressure several years ago and had been on Lisinopril and then was switched to Cozaar 50 mg. He then lost quite a bit of weight and was taken off because BP's seemed well under control. HAs since put weight back on and now BP starting to become elevated.Pt also fell last May and he hurt right knee and since then he has been having pain in the knee. Pain is on both sides of knee, in calf area and in thigh. Has used Advil for this in past. Past month however pain has let up quite a bit and rarely has to use Advil. At time of fall his knee was swollen for several months but swelling has subsided.). The patient has a balanced diet and takes no supplemental vitamins & iron. The patient sleeps 7 hours per night. Note for Well Adult, male: Active life style but no actual exercise. He saw a chiropracter for his knee and xrays were normal reportedly. Sx are greatly improvedhe also c/o urinary urgency,no nocturia 02-01-2013 Unclassified (7 sources) Follow Up for Multiple Chronic Conditions - The patient is here for follow-up of hypertension and other condition(s) (BPH). The patient always takes the prescribed medications. No side effects noted (does not need refills). The patient has an active lifestyle but no regular exercise program. The patient's out of office blood pressure checks occur occasionally and dietary compliance is fairly good usually adhering to recommendations. The patient states that there is no recent angina or dyspnea, weight has increased (up 7 pounds) and headaches are rarely noted. Note for Multiple chronic conditions follow-up: reviewed by [facility] 06-16-2023 Past or Other Problems Problem Classification Problem Date Documented Date Episodic/Chronic Deficiency and other anemia (4 sources) Anemia, unspecified; Translations: [Anemia, unspecified] Onset: 04-12-2024 Episodic Diabetes mellitus without complication (2 sources) Hyperglycemia, unspecified; Translations: [Hyperglycemia, unspecified] Onset: 12-11-2023 Episodic Other screening for suspected conditions (not mental disorders or infectious disease) (20 sources) Raised prostate specific antigen; Translations: [Elevated prostate specific antigen [PSA]] Onset: 12-11-2023 01-29-2023 Episodic Unclassified (16 sources) Hypertension - The onset of the hypertension has been acute. The JNC classification is Stage 2 hypertension - >=160 or >=100 The symptoms do not include headache. Note for Hypertension: Hernia surgery was canceled this morning due to high bp, pt does not know how high it was. Pt fell and hurt his back and had been taking a lot of Ibuprofen, asking if that could raise his bp 01-29-2023 Unclassified (16 sources) MCR Well Adult - In general the patient feels well with no complaints, has decreased energy level and is sleeping well. The patient has a balanced diet and takes no supplemental vitamins & iron. The patient does not exercise and sleeps 8 hours per night. The patient denies having trouble with bathing, dressing/grooming, toileting, preparing meals and ambulating. The patient denies having trouble with grocery shopping, driving, use of telephone, housework, laundry, preparing/taking medications and finances. The patient has a Healthcare Power of [employer] and a Living Will. Note for MCR Well Adult: Recently was in ER w CP but eval was negative, stress test was normal. 12-15-2022 Unclassified (16 sources) Consultation for hypertension - Went to [place] in Mar 2022 to detox. At that time he had high blood pressure of 189/123. Was then given a prescription for Co-Diovan 160mg/12.5mg one daily. Ran out of medication last week. Has not been checking home Blood pressures. Denies chest pain or headaches. reviewed by [facility] 05-27-2022 Unclassified (16 sources) Hernia - The onset of the hernia has been acute and has been occurring in a persistent pattern for 1 year. The course has been increasing. The hernia is described as moderate. The hernia is described as being located in the umbilical area. There has been no associated abdominal pain. Note for Hernia: Also asking for blood work today. Is fasting. reviewed by [facility] 03-30-2019 Unclassified (16 sources) bee sting - Patient is here with complaints of having bee stings. Said he was stung this am in multiple spots on both arms. Red and warm; some swelling but feels this is going down some. Said he feels a little weird - nausea and stiffness in arms (unless is moving them and then feels ok). Was also stung once yesterday. Removed the stingers. Has not taken any mediciatons. No trouble breathing, lip swelling, or chest tightness. 11-03-2018 Unclassified (16 sources) Rib Pain - Patient is here today for rib pain that is sharp and stabbing on the left side. He was pulling a calf last and slid under it. Denies chest pain, shortness of breath. Has been using abdominal binder on chest for comfort. Patient has been going to work and tolerating well, as long as not doing too much pulling/pushing. States pain may be getting better, but unable to sleep d/t pain. 11-07-2015 Unclassified (16 sources) Elevated Blood Pressure - Pt here today to discuss elevated Blood Pressures. He had been experiencing some headaches and has been checking them at home but does not have list with him however he says they have been elevated. Pt has also been under a lot of stress lately and feels that this has been playing a part. He denies any chest pain, SOB or dizziness. No ringing in her ears. BP's have been elevated in past but currently on no medication. He is averaging 160/105 at home.He also has a little skin lesion on right eyelid. He noticed it couple months ago. Would like removed if possible. reviewed by [facility] 09-12-2013 Unclassified (16 sources) Cold Symptoms - Symptoms include sneezing, nasal congestion, runny nose, scratchy throat, productive cough (coughing up brown sputum at times.) and general malaise, but do not include wheezing, fever or headache. The onset was gradual 3 day(s) ago. The patient describes this as worsening. Current treatment includes non-prescription cold medication (using dayquil and nyquil). Risk factors do not include smoking. The patient has been exposed to an individual with similar symptoms. Note for Upper respiratory infection: reviewed by [facility] 02-20-2012 Unclassified (16 sources) Foriegn Body in eye - Was seen by Dr Caruso with a diagnosis of corneal abrasion and has been using Erythromycin ointment. Is not having any relief. Continues with left eye pain. 05-07-2011 Unclassified (16 sources) Eye Symptoms - The onset of the symptoms has been acute and has been occurring in a persistent pattern for 1 hour. The course has been gradually improving. The symptoms are described as moderate to severe and involve the left eye. The symptoms are described as pain. Note for Eye Symptoms: pt thinks he got dirt in his eye 05-07-2011 Unclassified (1 source) blood pressure follow up - [facility] 01/29/2023 pt came in with high BP and his surgery was cancelled due to thatpt was on Diovan from [place] but you switched patient to losartan 50 mg-HCTZ 12.5mg 02-26-2023 Unclassified (11 sources) blood pressure follow up - [facility] 01/29/2023 pt came in with high BP and his surgery was cancelled due to thatpt was on Diovan from [place] but you switched patient to losartan 50 mg-HCTZ 12.5mg, then 02/12 he called in with high BP readings and you added on amlodipine pt is taking medication daily, pt is checking BP dailyBP readings 139/91, 143/104, 103/75, 139/88, 137/93, 134/89, 144/89 150/94, 147/100, 129/84, 106/75, 109/77, 106/79, 109/75, 139/91 02-26-2023 Results Test Name Value Interpretation Reference Range Facility MR/[facility] 12-08-2024 MR/[facility] Medical Records Department [address] [place] [address] PAT - Anesthesia 12/08/24 1602 MR#: [id number] Acct: [id number] Name: RAMOS TRAN Rep #: [id number] : [id number] From: Cliff Crook MD PCP: Care Physician,No Primary Status:[facility] Y Race: C Location: [facility] Pre-Assessment Diagnosis/Proposed Procedure Planned Operative Procedure(s): SPACE OAR Anesthesia History Anesthesia History - home connect lpn: Anesthesia History - home connect lpn Hx Hospitalization No 11/24/24 13:02 Any Problems With Anesthesia No 11/24/24 13:02 Cholinesterase deficiency No 11/24/24 13:02 You/Your Family Experience No 11/24/24 13:02 fever (hyperthermia) with Relationship Recent Exposure to Contagious No 11/30/24 06:58 Disease Does patient have nerve No 11/24/24 13:02 stimulator Patient instructed to have device shut off --Does patient have Pacemaker No 11/30/24 06:58 or ICD? When Was Last Pacemaker Check QUESTION #4 FULL TEXT: You/Your Family Experience fever (hyperthermia) with Anesthesia Last Oral Intake Last Oral intake: Last Oral Intake NPO since 20:00 11/30/24 06:58 Meds taken in AM with sips of water? Meds patient instructed to take am of surgery PONV PONV - home connect lpn: PONV - home connect lpn Female No 11/24/24 13:02 HX of Motion Sickness No 11/24/24 13:02 HX of N/V After Surgery No 11/24/24 13:02 Non-Smoker Yes 11/24/24 13:02 Duration of Surgery greater No 11/24/24 13:02 than 60 minutes Number of Risk Factors 1 11/24/24 13:02 PONV Score Low Risk 11/24/24 13:02 Height Weight Height Weight: Anesthesia: Height Weight Height 5 ft 10 in 11/30/24 06:58 Weight: 115.212 kg 11/30/24 06:58 Body Mass Index (BMI) 36.4 11/30/24 06:58 Respiratory Assessment Respiratory Assessment - home connect lpn: Respiratory Tract Infection Hx - home connect lpn Hx Respiratory Tract Infection No 11/24/24 13:02 STOP Sleep Apnea STOP Sleep Apnea - home connect lpn: STOP Sleep Apnea - home connect lpn Hx Hypertension Yes: CONTROLLED WITH MEDS 11/24/24 13:02 Hx Sleep Apnea No 11/24/24 13:02 CPAP BIPAP Do you snore loudly (louder No 11/24/24 13:02 than talking or can be heard Do you often feel tired/ No 11/24/24 13:02 fatigued/ sleepy during daytime? Has anyone observed you stop No 11/24/24 13:02 breathing during sleep? STOP Results Negative 11/24/24 13:02 QUESTION #5 FULL TEXT : Do you snore loudly (louder than talking or can be heard through closed doors)? 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 Specify any problems Hx of Preganancy in last 3 N/A 11/24/24 13:02 Months Nurse Filling Out Transfusion [email or web address] 11/24/24 13:02 Questions: Date: 11/24/24 11/24/24 13:02 Time: 13:06 11/24/24 13:02 Patient unable to answer at this time (ie. confused, unrespo /Reproduction History /Reproductive History - home connect lpn: /Reproductive Hx- home connect lpn Hx Now No 11/24/24 13:02 Gestational Age (in weeks): EDC: Hx Hx Para Hx Section SAB No 11/24/24 13:02 [facility] Medical History Wears dentures Wears glasses Alcohol use Heartburn Former smoker Cardiology follow-up encounter Eyelid abnormality BPH (benign prostatic hyperplasia) Nocturia Elevated PSA Urinary incontinence Hypertension Prostate cancer Home Medications ???Medication ???Instructions ???Recorded ???Last Taken ???Type amlodipine 5 mg tablet 5 mg PO QDAY 06/23/24 11/29/24 His tory losartan 50 mg-hydrochlorothiazide 1 tab PO QDAY 06/23/24 11/29/24 History 12.5 mg tablet tamsulosin 0.4 mg capsule 0.4 mg PO QDAY 06/23/24 11/29/24 H istory clonidine HCl 0.1 mg tablet 0.1 mg PO BID #60 tabs 11/30/24 Un known Rx Allergy/AdvReac Type Severity Reaction Status Date / Time No Know (more content not included)... Normal [facility] Anion gap in Serum or Plasma Ordered By: Dex Loeps on 11-30-2024 Anion gap [Moles/Vol] 11 mmol/L 07-[address] [facility] BUN/creatinine ratioOrdered By: Dex Lopes on 11-30-2024 Urea nitrogen/Creatinine [Mass ratio] 14.0 mg/mg 12-12 [facility] Basic Metabolic Profile (BMP )on 11-30-2024 BUN/CRE 14.0 RATIO Normal 12-12 [facility] Comment on above: Performed By: #### L 500.2500 #### [facility] [address] [place], [address] Calcium [Mass/Vol] 9.3 mg/dL Normal 7.6-11.0 [facility] Comment on above: Performed By: #### L 500.2500 #### [facility] [address] [place], [address] Chloride [Moles/Vol] 101 mmol/L Normal 98-108 [facility] Comment on above: Performed By: #### L 500.2500 #### [facility] [address] [place], [address] CO2 [Moles/Vol] 27.6 mmol/L Normal 21.0-32.0 [facility] Comment on above: Performed By: #### L 500.2500 #### [facility] [address] [place], [address] Creatinine [Mass/Vol] 1.04 mg/dL Normal 0.70-1.[address] [facility] Comment on above: Performed By: #### L 500.2500 #### [facility] [address] [place], [address] ECRCL 82.28 ml/min Normal 50-250 [facility] Comment on above: Performed By: #### L 500.2500 #### [facility] [address] [place], [address] GAP 11 Normal 07-07 [facility] Comment on above: Performed By: #### L 500.2500 #### [facility] [address] [place], [address] GFR/1.73 sq M.predicted among non-blacks MDRD (S/P/Bld) [Vol rate/Area] 76 mL/min/{1.73_m2} Normal >60 [facility] Comment on above: Result Comment: mL/m in/1.73m2 CKD-EPI Creatinine Equation (2020) Performed By: #### L 500.2500 #### [facility] [address] [place], [address] Glucose [Mass/Vol] 115 mg/dL High 70-99 [facility] Comment on above: Performed By: #### L 500.2500 #### [facility] [address] [place], [address] Potassium [Moles/Vol] 4.0 mmol/L Normal 3.3-5.[address] [facility] Comment on above: Performed By: #### L 500.2500 #### [facility] [address] [place], [address] Sodium [Moles/Vol] 139 mmol/L Normal 133-145 [facility] Comment on above: Performed By: #### L [id number] #### [facility] [address] [place], [address] Urea nitrogen [Mass/Vol] 15 mg/dL Normal 4-19 [facility] Comment on above: Performed By: #### L 500.2500 #### [facility] [address] [place], [address] Bilirubin Test strip Ql (U)O rdered By: Dex Lopes on 11-30-2024 Bilirubin Ql (U) Negative Negative [facility] Carbon dioxide, total [Moles /volume] in Central venous bloodOrdered By: Dex Lopes on 11-30-2024 CO2 [Moles/Vol] 27.6 mmol/L 21.0-32.0 [facility] Chloride assayOrdered By: Dionna Lopes on 11-30-2024 Chloride [Moles/Vol] 101 mmol/L 98-108 [facility] Emergency Department Summary on 11-30-2024 Emergency Department Summary [facility] Medical Records Department [address] [place] [address] Emergency Department Summary 11/30/24 MR#: [id number] Acct: [id number] Name: RAMOS TRAN Rep #: [id number] : 1950 74 From: Dex Lopes MD PCP: Care Physician,No Primary Status:REG ER Location: ED HPI History of Present Illness Chief Complaint: Hypertension Detail of Chief Complaint: Elevated blood pressure reading prior to surgery Informant: patient and other (Hospital staff from preanesthesia/presurgery reunit called because of elevated blood pressure) Onset/Context/Timing Onset: Today Context: - (Presumed sudden) Timing: Continuous Quality: Elevated blood pressure Location: Cardiovascular Current Severity: Moderate Maximum Severity: Moderate Worsened by: Patient did not take his morning hypertensive meds because he was scheduled Relieved by: Not applicable Associated Symptoms Associated Symptoms: Slight bifrontal headache Narrative Narrative: Patient is a 74-year-old male. He has history of hypertension and BPH. He was scheduled to have urologic surgery by Dr. Walter. His blood pressure was elevated. He was sent to the ER. We were informed that he has not taken his medicine in 6 months. He has not seen a doctor in 6 months because his doctor retired. He reports he is compliant with his medication. He did not take this morning's meds because he was instructed not to. He denies double vision, blurred vision loss of vision. Eyes baker ears decreased hearing. Nuys trouble with speech or swallowing. Denies chest pressure, tach, tightness, heaviness, pain or dyspnea. Nuys dyspnea on exertion or orthopnea. He denies abdominal pain, nausea or vomiting. He denies skin lesion. He does have swelling of his legs. He states he is on a water pill. He denies orthopnea or PND. Prior similar symptoms: No Recent Illness/Hospitalization: No PFSH PFSH Medical History Wears dentures Wears glasses Alcohol use Heartburn Former smoker Cardiology follow-up encounter Eyelid abnormality BPH (benign prostatic hyperplasia) Nocturia Elevated PSA Urinary incontinence Hypertension Prostate cancer Home Medications ???Medication ???Instructions ???Recorded ???Last Taken ???Type amlodipine 5 mg tablet 5 mg PO QDAY 06/23/24 11/29/24 His tory losartan 50 mg-hydrochlorothiazide 1 tab PO QDAY 06/23/24 11/29/24 History 12.5 mg tablet tamsulosin 0.4 mg capsule 0.4 mg PO QDAY 06/23/24 11/29/24 H istory clonidine HCl 0.1 mg tablet 0.1 mg PO BID #60 tabs 11/30/24 Un known Rx Allergy/AdvReac Type Severity Reaction Status Date / Time No Known Allergies Allergy Verified 11/30/24 07:57 Family History Father Cancer skin Brother Heart problem Surgical History Hx of prostate biopsy Hx of hernia repair Hx of cataract extraction Social History Smoking Status: Former smoker alcohol intake: never ROS ROS ED Constitutional Constitutional ED: Denies chills, fever(s), subjective, sweats or weight loss Eyes Eyes: Denies blurry vision, change in vision or diplopia ENT ENT ED: Denies rhinorrhea or sore throat Cardiovascular Cardiovascular: Denies chest pain, orthopnea, palpitations or paroxysmal nocturnal dyspnea Respiratory/Chest Respiratory/Chest: Denies cough, dyspnea, dyspnea on exertion, orthopnea or paroxysmal nocturnal dyspnea Gastrointestinal Gastrointestinal: Denies abdominal pain, nausea or vomiting Musculoskeletal Musculoskeletal: Denies arthralgias, back pain or myalgias Integumentary Denies rash Neurologic Neurologic: Reports headache(s); Denies paresthesias or weakness Hematologic/Lymphatic Hematologic/Lymphatic: Reports systems reviewed and no addt'l complaints, except as documented EXAM Physical Exam Const Vital Signs: 11/30/24 07:54 11/30/24 09:53 11/30/24 10:37 Temperature 98.9 F Temperature Source Oral Pulse Rate 95 74 82 Respiratory Rate 18 16 Blood Pressure 182/102 H 196/127 H 190/103 H Blood Pressure Mean 128 150 132 Pulse Ox 97 100 Oxygen Delivery Method Room Air Room Air Positive well nourished and well developed Constitutional Narrative: Blood pressure is slightly elevated 182/102. Repeat was 214/124. Patient appears no distress. BMI is 37. General Appearance ED: well developed; Negative for pallor HEENT Reports moist mucous membranes HEENT Narrative: Head is atraumatic and normocephalic. Ears normal Eyes PERRL and EOMs intact bilaterally General Eye ED: Negative for pale conjunctiva or scleral icterus Neck no lymphadenopathy, supple and no JVD Chest Wall in (more content not included)... Normal [facility] Glomerular filtration rate ( GFR) estimation/1.73 sq m using serum, plasma, or whole bOrdered By: Dex Lopes on 11-30-2024 GFR/1.73 sq M.predicted among non-blacks MDRD (S/P/Bld) [Vol rate/Area] 76 mL/min/{1.73_m2} >60 [facility] Comment on above: mL/min/1.73m2 CKD-EP I Creatinine Equation (2020) Ketones Test strip Ql (U)Ord ered By: Dex Lopes on 11-30-2024 Ketones Ql (U) Negative Negative [facility] Microscopic analysis of urin e for red blood cells (RBC)Ordered By: Dex Lopes on 11-30-2024 Microscopic analysis of urine for red blood cells (RBC) 0 SEEN /hpf 0-5 [facility] Mucus LM Ql (Urine sed)Order ed By: Dex Lopes on 11-30-2024 Mucus Ql (Urine sed) 0 SEEN /hpf [facility] Nitrite Test strip Ql (U)Ord ered By: Dex Lopes on 11-30-2024 Nitrite Ql (U) Negative Negative [facility] Potassium measurement (mass/ volume)Ordered By: Dex Lopes on 11-30-2024 Potassium (Unsp spec) [Mass/Vol] 4.0 mmol/L 3.3-5.1 [facility] Protein Test strip Ql (U)Ord ered By: Dex Lopes on 11-30-2024 Protein Ql (U) 15 mg/dl High Negative [facility] Serum creatinine measurement (mass/volume)Ordered By: Dex Lopes on 11-30-2024 Creatinine [Mass/Vol] 1.04 mg/dL 0.70-1.[address] [facility] Serum glucose measurement (m ass/volume)Ordered By: Dex Lopes on 11-30-2024 Glucose [Mass/Vol] 115 mg/dL High 70-99 [facility] Serum or plasma calcium rojas urement (mass/volume)Ordered By: Dex Lopes on 11-30-2024 Calcium [Mass/Vol] 9.3 mg/dL 7.6-11.0 [facility] Serum or plasma urea nitroge n measurement (mass/volume)Ordered By: Dex Lopes on 11-30-2024 Urea nitrogen [Mass/Vol] 15 mg/dL 4-19 [facility] Sodium levelOrdered By: Dexloree Lopes on 11-30-2024 Sodium [Moles/Vol] 139 mmol/L 133-145 [facility] Squamous epithelial cells de tection in urine sediment by light microscopyOrdered By: Dex Lopes on 11-30-2024 Epithelial cells.squamous LM Ql (Urine sed) 0 SEEN /hpf 0-5 [facility] Urinalysis, Completeon 11-30 BACTERIA 0 SEEN Normal None Seen [facility] Comment on above: Order Comment: CLEAN CATCH Performed By: #### L 400.0001 #### [facility] [address] [place], [place], [id number] EPI,SQUAMOUS 0 SEEN Normal 0-5 [facility] Comment on above: Order Comment: CLEAN CATCH Performed By: #### L 400.0001 #### [facility] [address] [place], [address] Mucus Ql (Urine sed) 0 SEEN Normal [facility] Comment on above: Order Comment: CLEAN CATCH Performed By: #### L 400.0001 #### [facility] [address] [place], [address] RBC 0 SEEN Normal 0-5 [facility] Comment on above: Order Comment: CLEAN CATCH Performed By: #### L 400.0001 #### [facility] [address] [place], [address] WBC 0 SEEN Normal 0-5 [facility] Comment on above: Order Comment: CLEAN CATCH Performed By: #### L 400.0001 #### [facility] [address] [place], [address] Urine clarityOrdered By: Dex Lopes on 11-30-2024 Clarity (U) Clear Clear [facility] Urine color determinationOrd ered By: Dex Lopes on 11-30-2024 Color (U) Yellow Yellow [facility] Urine glucose detectionOrder ed By: Dex Lopes on 11-30-2024 Glucose Ql (U) Normal mg/dl Normal [facility] Urine leukocyte esterase det ection by dipstickOrdered By: Dexloree Lopes on 11-30-2024 Leukocyte esterase Test strip Ql (U) Negative Negative [facility] Urine pHOrdered By: Dex ralph on 11-30-2024 pH (U) 7.0 [pH] 5.0 - 8.0 [facility] Urine sediment bacteria coun t by microscopy (number/high power field)Ordered By: Dexloree Lopes on 11-30-2024 Bacteria LM.HPF (Urine sed) [#/Area] 0 /[HPF] None Seen [facility] Urine specific gravity measu rementOrdered By: Dex Lopes on 11-30-2024 Specific gravity (U) [Rel density] 1.010 1.002-1.03 0 [facility] Urine urobilinogen measureme ntOrdered By: Dex Lopes on 11-30-2024 Urobilinogen Ql (U) Normal mg/dl Normal [facility] White blood cell countOrdere d By: Dex Lopes on 11-30-2024 White blood cell count 0 SEEN /hpf 0-5 [facility] MR/PAT.ANEon 11-24-2024 MR/PAT.ODELL [facility] Medical Records Department [address] [place] [address] PAT - Anesthesia 11/24/24 1706 MR#: [id number] Acct: [id number] Name: RAMOS TRAN Rep #: [id number] : 1950 74 From: Fito Raygoza MD PCP: Dr. Ermelinda Tate MD Status:PRE [facility] Y Race: C Location: [facility] Pre-Assessment Diagnosis/Proposed Procedure Planned Operative Procedure(s): SPACE OAR Anesthesia History Anesthesia History - home connect lpn: Anesthesia History - home connect lpn Hx Hospitalization No 11/24/24 13:02 Any Problems With Anesthesia No 11/24/24 13:02 Cholinesterase deficiency No 11/24/24 13:02 You/Your Family Experience No 11/24/24 13:02 fever (hyperthermia) with Relationship Recent Exposure to Contagious Disease Does patient have nerve No 11/24/24 13:02 stimulator Patient instructed to have device shut off --Does patient have Pacemaker or ICD? When Was Last Pacemaker Check QUESTION #4 FULL TEXT: You/Your Family Experience fever (hyperthermia) with Anesthesia Last Oral Intake Last Oral intake: Last Oral Intake NPO since Meds taken in AM with sips of water? Meds patient instructed to take am of surgery PONV PONV - home connect lpn: PONV - home connect lpn Female No 11/24/24 13:02 HX of Motion Sickness No 11/24/24 13:02 HX of N/V After Surgery No 11/24/24 13:02 Non-Smoker Yes 11/24/24 13:02 Duration of Surgery greater No 11/24/24 13:02 than 60 minutes Number of Risk Factors 1 11/24/24 13:02 PONV Score Low Risk 11/24/24 13:02 Height Weight Height Weight: Anesthesia: Height Weight Height 5 ft 10 in 11/18/24 09:36 Respiratory Assessment Respiratory Assessment - home connect lpn: Respiratory Tract Infection Hx - home connect lpn Hx Respiratory Tract Infection No 11/24/24 13:02 STOP Sleep Apnea STOP Sleep Apnea - home connect lpn: STOP Sleep Apnea - home connect lpn Hx Hypertension Yes: CONTROLLED WITH MEDS 11/24/24 13:02 Hx Sleep Apnea No 11/24/24 13:02 CPAP BIPAP Do you snore loudly (louder No 11/24/24 13:02 than talking or can be heard Do you often feel tired/ No 11/24/24 13:02 fatigued/ sleepy during daytime? Has anyone observed you stop No 11/24/24 13:02 breathing during sleep? STOP Results Negative 11/24/24 13:02 QUESTION #5 FULL TEXT : Do you snore loudly (louder than talking or can be heard through closed doors)? 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 Specify any problems Hx of Preganancy in last 3 N/A 11/24/24 13:02 Months Nurse Filling Out Transfusion [email or web address] 11/24/24 13:02 Questions: Date: 11/24/24 11/24/24 13:02 Time: 13:06 11/24/24 13:02 Patient unable to answer at this time (ie. confused, unrespo /Reproduction History /Reproductive History - home connect lpn: /Reproductive Hx- home connect lpn Hx Now No 11/24/24 13:02 Gestational Age (in weeks): EDC: Hx Hx Para Hx Section SAB No 11/24/24 13:02 PFSH Medical History Wears dentures Wears glasses Alcohol use Heartburn Former smoker Cardiology follow-up encounter Eyelid abnormality BPH (benign prostatic hyperplasia) Nocturia Elevated PSA Urinary incontinence Hypertension Prostate cancer Home Medications ???Medication ???Instructions ???Recorded ???Last Taken ???Type amlodipine 5 mg tablet 5 mg PO QDAY 06/23/24 Unknown Hist ory losartan 50 mg-hydrochlorothiazide 1 tab PO QDAY 06/23/24 Unknown H istory 12.5 mg tablet tamsulosin 0.4 mg capsule 0.4 mg PO QDAY 06/23/24 Unknown Hi story Allergy/AdvReac Type Severity Reaction Status Date / Time No Known Allergies Allergy Verified 11/24/24 13:00 Family History Father Cancer skin Brother Heart problem Surgical History H (more content not included)... Normal [facility] Radiation Oncology Visiton 0 11-18-2024 Radiation Oncology Visit [facility] [address] [place] [address] OFFICE VISIT Date of Service: 11/18/24932 MR#: [id number] Acct: [id number] Name: RAMOS TRAN Rep #: [id number] : 1950 From: Arvind Zuluaga DO Age/Sex: 74/M [place] [facility] [place]: Signed Intake Vital Signs 11/08/24 14:09 11/18/24 09:36 Height 5 ft 10 in 5 ft 10 in Weight: 257 lb 2 oz BMI 36.8 BP 179/89 H Respiration 18 Pulse 83 Pulse Source Monitor Temp 98.1 F Temperature Source Temporal Artery Pulse Oximetry (%) 94 Oxygen Delivery Method room air Intake Accompanied by: Self Is patient in pain?: No Allergies No Known Allergies Allergy (Verified 11/18/24 09:36) Medications ???Medication ???Instructions ???Recorded ???Confirmed ???Type amlodipine 5 mg tablet 5 mg PO QDAY 06/23/24 11/18/24 His tory losartan 50 mg-hydrochlorothiazide 1 tab PO QDAY 06/23/24 11/18/24 History 12.5 mg tablet tamsulosin 0.4 mg capsule 0.4 mg PO QDAY 06/23/24 11/18/24 H istory Have you fallen in the past year?: No Central Venous Access Central Venous Access: No PFSH PFSH Medical History Eyelid abnormality BPH (benign prostatic hyperplasia) Nocturia Elevated PSA Urinary incontinence Hypertension Prostate cancer Home Medications ???Medication ???Instructions ???Recorded ???Last Taken ???Type amlodipine 5 mg tablet 5 mg PO QDAY 06/23/24 Unknown Hist ory losartan 50 mg-hydrochlorothiazide 1 tab PO QDAY 06/23/24 Unknown H istory 12.5 mg tablet tamsulosin 0.4 mg capsule 0.4 mg PO QDAY 06/23/24 Unknown Hi story Allergy/AdvReac Type Severity Reaction Status Date / Time No Known Allergies Allergy Verified 11/18/24 09:36 Family History Father Cancer skin Brother Heart problem Surgical History Hx of prostate biopsy Hx of hernia repair Hx of cataract extraction Social History Smoking Status: Former smoker alcohol intake: never Diagnosis: Ramos Tran is a 74 year-old male diagnosed with 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 History of Present Illness: 05/30/2024: Patient completed TRUS guided prostate biopsy.??? Pathology demonstrated Precious 3+4 adenocarcinoma involving about 20% of 1/1 core in the right prostate apex, remaining biopsies were negative for involvement. 11/15/2024: Patient completed PSMA PET scan.??? This demonstrated foci of activity within the prostate gland suspicious for neoplasm.??? No other evidence of disease is noted. Radiation Treatment History: No prior history of radiation therapy. No pacemaker. No diagnosis of radiosensitizing comorbidity. Interval History: Patient presents for follow up. He was initially seen about 4 months ago to discuss treatment options for intermediate risk prostate cancer, he ultimately decided not to pursue active treatment and wanted to check his PSA a few months later which came back much more elevated and he now returns after completing PSMA PET. He reports stability in his urinary symptoms. He has urgency more than half the time, incomplete emptying and weak stream less than half the time, frequency less than 1 time in 5 and denies intermittency or straining. He has nocturia twice per night. He has been on Flomax once per day for about the last year which have helped his symptoms. He denies leakage or incontinence. He denies dysuria or hematuria. He does report normal bowel function with a bowel movement about once per day, denies diarrhea or constipation. He had a colonoscopy within the last year he reports and it was he thinks normal. He denies rectal pain or bleeding. He denies cough, shortness of breath, chest pain, bone pain. He does stay very active in his daily life and completes all ADLs without any difficulty. He denies having other problems or concerns at this time. IPSS: 11, flomax qHS Review of Systems: A 12-point review of systems was completed and was negative except for what is noted in the HPI/Interval History and by the nurse. Physical Exam: Weight: 257 lbs 2 oz ECO KARNOFSKY SCORE: 70% CONSTITUTIONAL: Well-developed, well-nourished, and in no apparent distress. CARDIAC: Regular rate and rhythm. Normal S1, S2. No murmurs, rubs, or gallops. PULMONARY/CHEST: Lungs are clear to auscultation and percussion bilaterally. No wheezes, rhonchi, or crackles noted. No increased work of breathing. EXTREMITIES: Full range of motion in all four extremities. No evidence of edema. YOMAIRA: Deferred PSYCHIATRIC: Appropriate m (more content not included)... Normal [facility] PET/CT Tumor Base -Thigh Ini ton 11-15-2024 PET/CT Tumor Base -Thigh Init [facility] Imaging Services [address] [place], [place] [address] PET/CT Tumor Base -Thigh Init MR#: [id number] Acct: [id number] Name: RAMOS TRAN Rep #: [id number] : 1950 M 74 From: Joey Mckeon MD PCP: Dr. Ermelinda Tate MD Status: REG RCR Study: PET/CT Tumor Base -Thigh Init Date of Exam: Exam# [id number] Ordering Dr: Arvind Zuluaga DO PROCEDURE: PET/CT TUMOR BASE -THIGH INIT 11/15/2024 REASON FOR EXAM: 74 y/o M with PYLARIFY TECHNIQUE: Procedure Code: PETPTCTINIT Modality: PT Procedure: PET/CT TUMOR BASE -THIGH INIT TECHNIQUE: After intravenous injection of 9.4 millicuries of PSMA Ga-68 Illuccix and a standard uptake period, a noncontrast CT scan, followed by a PET scan were acquired along the length of the body from the top of the skull to the mid thighs. The noncontrast helical CT imaging was performed without breath hold, for attenuation correction of PET images and anatomic correlation, but not for primary interpretation, as it is not of the standard diagnostic quality. Images were reviewed in the axial, coronal and sagittal planes. RADIATION DOSE SUMMARY: Effective Dose: Approximately 7 mSv for a standard whole-body PET scan Organ Doses: Varies by organ, with higher doses typically to the bladder, liver, and brain CTDI: 10.6 mGy. DLP: 1226.30 mGy cm. COMPARISON: COMPARISON FROM CT, PET OR OTHER PERTINENT EXAMS: None.. FINDINGS: Examination of the 3D tomographic PET images demonstrates expected uptake in the lacrimal glands, salivary glands, liver, spleen, kidneys, bowel and bladder. There is calcific vascular disease of the intracranial portion of both internal carotid arteries. There is calcific vascular disease of the right carotid bifurcation. There is nasal septal deviation to the right. There is bilateral maxillary sinusitis. There are no pleural effusions. The heart is enlarged. There is a minimal pericardial effusion. There is calcific vascular disease of the thoracic aorta and coronary arteries. 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 There is ectasia of the infrarenal abdominal aorta without aneurysm. There are bilateral inguinal hernias, containing fat, both extending into the scrotum, measuring 6.5 cm in diameter on the right and 3.8 cm in diameter on the left. Prostate bed: There is activity at the apex of the gland barely separable from the adjacent urinary bladder. There is an area of peripheral posterior activity, measuring 13 x 9 mm, max SUV 8.5. There is an area of peripheral activity, left anterolaterally measuring 9.6 mm, max SUV 7.3. Just inferior to the apex is a left lateral area of activity measuring 10 x 7 mm, max SUV 4.8. At the level of the midgland, there is an area of central activity, which may be within the urethra, measuring 6 x 4 mm, max SUV 11.8 Lymph nodes: There is no abnormal lymph node activity. Skeleton: There is no abnormal skeletal activity. Uptake time: 60 minutes. Mediastinal blood pool: Max SUV, 1.7 BMI: 35.9 PET/PET/CT Tumor Base -Thigh Init IMPRESSION: 1. Foci of activity within the prostate gland suspicious for neoplasm as described. 2. No evidence of metastatic disease. 3. Other findings as noted. E- PSMA score: 4 E- PSMA scoring: Score = 1: Benign lesion without abnormal PSMA uptake. Score = 2: Probably benign lesion: Faint PSMA uptake (equal to or lower than background) in the site atypical for prostate cancer. Score = 3: Equivocal finding: Faint uptake in a site typical for prostate cancer or intense uptake in a site atypical prostate cancer. Score = 4: Probably prostate cancer: Intense uptake and a site typical for prostate cancer, but without definitive findings on CT. Score = 5: Definitive evidence of prostate cancer: Intense uptake in a typical site of prostate cancer with definitive findings on CT. Reading Location: [id number] CC: Dr. Ermelinda Tate MD; Dr. Arvind Zuluaga DO Mop Man: Signed Normal [facility] Radiation Oncology Visiton 0 11-08-2024 Radiation Oncology Visit [facility] [address] [address] OFFICE VISIT Date of Service: 11/08/24 1342 MR#: [id number] Acct: [id number] Name: RAMOS TRAN Rep #: [id number] : 1950 From: Arvind Zuluaga DO Age/Sex: 74/M [place] [facility] [place] [facility] [place]: Signed Intake Vital Signs 06/27/24 13:59 11/08/24 14:02 11/08/24 14:09 Height 5 ft 10 in 5 ft 10 in 5 ft 10 in Weight: 264 lb 1 oz 255 lb BMI 37.8 36.6 BP 119/71 166/97 H Blood Pressure Location Lt brachial Rt brachial Position Sitting Sitting Respiration 18 18 Pulse 94 93 Pulse Source Monitor Monitor Temp 98.5 F 99.0 F Temperature Source Temporal Artery Temporal Artery Pulse Oximetry (%) 94 93 Oxygen Delivery Method room air room air Intake Is patient in pain?: No Allergies No Known Allergies Allergy (Verified 11/08/24 13:58) Medications ???Medication ???Instructions ???Recorded ???Confirmed ???Type amlodipine 5 mg tablet 5 mg PO QDAY 06/23/24 11/08/24 His tory losartan 50 mg-hydrochlorothiazide 1 tab PO QDAY 06/23/24 11/08/24 History 12.5 mg tablet tamsulosin 0.4 mg capsule 0.4 mg PO QDAY 06/23/24 11/08/24 H istory Have you fallen in the past year?: No PFSH PFSH Medical History Eyelid abnormality BPH (benign prostatic hyperplasia) Nocturia Elevated PSA Urinary incontinence Hypertension Prostate cancer Home Medications ???Medication ???Instructions ???Recorded ???Last Taken ???Type amlodipine 5 mg tablet 5 mg PO QDAY 06/23/24 Unknown Hist ory losartan 50 mg-hydrochlorothiazide 1 tab PO QDAY 06/23/24 Unknown H istory 12.5 mg tablet tamsulosin 0.4 mg capsule 0.4 mg PO QDAY 06/23/24 Unknown Hi story Allergy/AdvReac Type Severity Reaction Status Date / Time No Known Allergies Allergy Verified 11/08/24 13:58 Family History Father Cancer skin Brother Heart problem Surgical History Hx of prostate biopsy Hx of hernia repair Hx of cataract extraction Social History Smoking Status: Former smoker alcohol intake: never Diagnosis: Ramos Tran is a 74 year-old male diagnosed with 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 History of Present Illness: 05/30/2024: Patient completed TRUS guided prostate biopsy.??? Pathology demonstrated Cumming 3+4 adenocarcinoma involving about 20% of 1/1 core in the right prostate apex, remaining biopsies were negative for involvement. Radiation Treatment History: No prior history of radiation therapy. No pacemaker. No diagnosis of radiosensitizing comorbidity. Interval History: Patient presents for follow up. He was initially seen about 4 months ago to discuss treatment options for intermediate risk prostate cancer, he ultimately decided not to pursue active treatment and wanted to check his PSA a few months later which came back much more elevated and he returns to discuss this result. He reports stability in his urinary symptoms. He has urgency almost always, incomplete emptying more than half the time, frequency less than half the time, intermittency and weak stream less than 1 time in 5 and denies straining. He has nocturia once per night. He has been on Flomax once per day for about the last year which have helped his symptoms. He denies leakage or incontinence. He denies dysuria or hematuria. He does report normal bowel function with a bowel movement about once per day, denies diarrhea or constipation. He had a colonoscopy within the last year he reports and it was he thinks normal. He denies rectal pain or bleeding. He denies cough, shortness of breath, chest pain, bone pain. He does stay very active in his daily life and completes all ADLs without any difficulty. He denies having other problems or concerns at this time. Review of Systems: A 12-point review of systems was completed and was negative except for what is noted in the HPI/Interval History and by the nurse. Physical Exam: Weight: 264 lbs 1 oz ECO KARNOFSKY SCORE: 70% CONSTITUTIONAL: Well-developed, well-nourished, and in no apparent distress. CARDIAC: Regular rate and rhythm. Normal S1, S2. No murmurs, rubs, or gallops. PULMONARY/CHEST: Lungs are clear to auscultation and percussion bilaterally. No wheezes, rhonchi, or crackles noted. No increased work of breathing. EXTREMITIES: Full range of motion in all four extremities. No evidence of edema. YOMAIRA: Deferred PSYCHIATRIC: Appropriate mood and affect for the clinical situation. Imaging: As per HPI Laboratory (more content not included)... Normal [facility] BMP with eGFRon 07-04-2024 AGE 74 years Normal [facility] Comment on above: Performed By: #### 2 [id number] #### [facility],[address] [place] [address] Anion gap [Moles/Vol] 11 mmol/L Normal 10 - 20 [facility] Comment on above: Performed By: #### 2 25390 #### [facility],[address] [place] [address] BMP with eGFR Normal [facility] Comment on above: Result Comment: BASI C METABOLIC PANEL Performed By: #### 2 65651 #### [facility],[address] [place] [address] Calcium [Mass/Vol] 9.6 mg/dL Normal 8.5 - 10.1 [facility] Comment on above: Performed By: #### 2 15288 #### [facility],[address] [place] [address] Chloride [Moles/Vol] 99 mmol/L Normal 98 - 107 [facility] Comment on above: Performed By: #### 2 09181 #### [facility],[address] [place] [address]50 CO2 [Moles/Vol] 30.5 mmol/L Normal 21.0 - 32.0 [facility] Comment on above: Performed By: #### 2 59645 #### [facility],[address] [place] [address]71 Creatinine [Mass/Vol] 1.28 mg/dL Normal 0.70 - 1.30 [facility] Comment on above: Performed By: #### 2 82047 #### [facility],[address] [place] [address]2005 eGFR 55 ML/MINUTE Low 60 - 999 [facility] Comment on above: Performed By: #### 2 90075 #### [facility],[address] [place] [address] GFR/1.73 sq M.predicted among non-blacks MDRD (S/P/Bld) [Vol rate/Area] mL/min/{1.73_m2} Normal 60 - 999 [facility] Comment on above: Result Comment: ACCO RDING TO THE NATIONAL KIDNEY DISEASE EDUCATION PROGRAM(NKDE), A NORMAL eGFR IS A VALUE GREATER THAN OR EQUAL TO 60 ML/MIN/1.73 SQ METERS. CHRONIC KIDNEY DISEASE: <60mL/MIN/1.73 SQ METERS KIDNEY FAILURE: <15mL/MIN/1.73 SQ METERS THIS TEST SHOULD ONLY BE USED FOR PATIENTS 18 YEARS OF AGE AND OLDER. Performed By: #### 2 26053 #### [facility],[address] [place] [address] Glucose [Mass/Vol] 120 mg/dL High 74 - 106 [facility] Comment on above: Performed By: #### 2 95358 #### [facility],[address] [place] [address]0 Potassium [Moles/Vol] 4.3 mmol/L Normal 3.5 - 5.1 [facility] Comment on above: Performed By: #### 2 36407 #### [facility],[address] [place] [address] Sodium [Moles/Vol] 136 mmol/L Normal 136 - 145 [facility] Comment on above: Performed By: #### 2 56808 #### [facility],[address] [place] [address]1968 Urea nitrogen [Mass/Vol] 36 mg/dL High 7 - 18 [facility] Comment on above: Performed By: #### 2 04694 #### [facility],[address] [place] [address] Radiation Oncology Visiton 0 06-27-2024 Radiation Oncology Visit [facility] [address] [place], [place] [id number] OFFICE VISIT Date of Service: 06/27/24 1354 MR#: [id number] Acct: [id number] Name: RAMOS TRAN Arpit Rep #: [id number] : 1950 From: Arvind Zuluaga DO Age/Sex: 74/M Location: [facility] [place] Status: Signed Intake Vital Signs 06/27/24 13:59 Height 5 ft 10 in Weight: 264 lb 1 oz BMI 37.8 BP 119/71 Blood Pressure Location Lt brachial Position Sitting Respiration 18 Pulse 94 Pulse Source Monitor Temp 98.5 F Temperature Source Temporal Artery Pulse Oximetry (%) 94 Oxygen Delivery Method room air Intake Visit Reasons: PROSTATE CA Is patient in pain?: No Allergies No Known Allergies Allergy (Unverified 06/27/24 13:58) Medications ???Medication ???Instructions ???Recorded ???Confirmed ???Type amlodipine 5 mg tablet 5 mg PO QDAY 06/23/24 06/27/24 His tory losartan 50 mg-hydrochlorothiazide 1 tab PO QDAY 06/23/24 06/27/24 History 12.5 mg tablet tamsulosin 0.4 mg capsule 0.4 mg PO QDAY 06/23/24 06/27/24 H istory Have you fallen in the past year?: No PFSH PFSH Medical History BPH (benign prostatic hyperplasia) Nocturia Elevated PSA Urinary incontinence Hypertension Prostate cancer Home Medications ???Medication ???Instructions ???Recorded ???Last Taken ???Type amlodipine 5 mg tablet 5 mg PO QDAY 06/23/24 Unknown Hist ory losartan 50 mg-hydrochlorothiazide 1 tab PO QDAY 06/23/24 Unknown H istory 12.5 mg tablet tamsulosin 0.4 mg capsule 0.4 mg PO QDAY 06/23/24 Unknown Hi story Allergy/AdvReac Type Severity Reaction Status Date / Time No Known Allergies Allergy Unverified 06/27/24 13:58 Surgical History Hx of prostate biopsy Hx of hernia repair Hx of cataract extraction Social History Smoking Status: Former smoker alcohol intake: never Referring Provider: Elvis Walter MD Diagnosis: Ramos Tran is a 74 year-old male diagnosed with 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 History of Present Illness: 05/30/2024: Patient completed TRUS guided prostate biopsy.??? Pathology demonstrated Cumming 3+4 adenocarcinoma involving about 20% of 1/1 core in the right prostate apex, remaining biopsies were negative for involvement. Radiation Treatment History: No prior history of radiation therapy. No pacemaker. No diagnosis of radiosensitizing comorbidity. Interval History: Patient presents for initial consultation. He reports having his prostate cancer diagnosis based off of a rising PSA. He has no new symptoms this year. He does report some chronic urinary symptoms with frequency and urgency almost always and he has weak stream less than 1 time in 5. He denies incomplete emptying, intermittency, straining. His urinary symptoms were a bit worse but he has been on Flomax once per day for about the last 6 to 12 months and this has helped. He has nocturia about once per night. He denies leakage or incontinence. He denies dysuria or hematuria. He does report normal bowel function with a bowel movement about once per day, denies diarrhea or constipation. He had a colonoscopy within the last year he reports and it was he thinks normal. He denies rectal pain or bleeding. He denies cough, shortness of breath, chest pain, bone pain. He does stay very active in his daily life and completes all ADLs without any difficulty. He denies having other problems or concerns at this time. Review of Systems: A 12-point review of systems was completed and was negative except for what is noted in the HPI/Interval History and by the nurse. Physical Exam: Weight: 264 lbs 1 oz ECO KARNOFSKY SCORE: 70% CONSTITUTIONAL: Well-developed, well-nourished, and in no apparent distress. CARDIAC: Regular rate and rhythm. Normal S1, S2. No murmurs, rubs, or gallops. PULMONARY/CHEST: Lungs are clear to auscultation and percussion bilaterally. No wheezes, rhonchi, or crackles noted. No increased work of breathing. EXTREMITIES: Full range of motion in all four extremities. No evidence of edema. YOMAIRA: Deferred PSYCHIATRIC: Appropriate mood and affect for the clinical situation. Imaging: As per HPI Laboratory Data: PSA: 03/30/2019: 2.9 12/09/2022: 5.56 06/16/2023: 6.86 08/25/2023: 7.93 12/11/2023: 8.1 05/04/2023: 8.39 Assessment Plan Assessment/Plan (1) Cancer of prostate with intermediate recurrence risk (stage T2b-c or Precious 7 or PSA 10-20): PLAN: Plan Assessment: Ramos Tran is a 74 year-old male diagnosed with favorable intermediate risk prostate ad (more content not included)... Normal [facility] FERRITIN [CCL]on 06-03-2024 Ferritin [Mass/Vol] 162.0 ng/mL Normal 30.3-565.7 [facility] Comment on above: Result Comment: [facility] [address] [place] [address] Sridhar Bardales III, M.D. [id number] Performed By: #### 2 03480 #### [facility],[address] [place] [address]881 PSA, FREE [CCL]on 06-01-2024 PSA, Diagnostic 17.44 ng/mL High <2.60 [facility] Comment on above: Result Comment: Tota l PSA test methodology used is the Electrochemiluminescence Immunoassay by [employer]. Total PSA values by differing methodologies cannot be interchanged. For an individual patient, the significance of a PSA level should be interpreted in a broad clinical context, including age, race, family history, digital rectal exam, prostate size, results of prior testing (prostate biopsy, free PSA, PCA3), and use of 5-alpha reductase inhibitors. Considering the high incidence of asymptomatic cancer in the general population that may not pose an ultimate risk to a patient, the decision to recommend urological evaluation or prostate biopsy should be individualized after consideration of all these factors. REFERENCE: Coby Carmona M.D., M.P.H., Sae De La Torre M.D., Ph.D., Ron Garza M.D., Taya Browning, M.P.H., Annetta Ortiz Sc.D. Effect of Verification Bias on Screening for Prostate Cancer by Measurement of Prostatic Specific Antigen. N Engl J Med 2003,349:335-42. Performed By: #### 2 65550 #### [facility],[address] [place] [address]6057 PSA, Percent Free 18 % Normal [facility] Comment on above: Result Comment: Tota l and free PSA test methodology used is the Electrochemiluminescence Immunoassay by [employer]. Total or free PSA values by differing methodologies cannot be interchanged. The below table lists the probability of finding prostate cancer upon needle biopsy, for men 50 years or older and total PSA concentrations from 4.0-10.0 ng/mL. Results should be interpreted within the broader clinical context. Free PSA(%) 50-59 years 60-69 years >69 years <11 49.2% 57.5% 64.5% 11-18 26.9% 33.9% 40.8% 19-25 18.3% 23.9% 29.7% >25 9.1% 12.2% 15.8% [place] [place] [address] Sridhar Bardales III, M.D. [id number] Performed By: #### 2 72979 #### [place] [address] CBC + DIFFon 05-31-2024 Baso # 0.04 x10EE3/UL Normal 0.00 - 0.10 [facility] Comment on above: Performed By: #### 2 40658 #### [place] [address] Basophils/100 WBC (Bld) 0.6 % Normal 0.0 - 2.0 [facility] Comment on above: Performed By: #### 2 64097 #### [place] [address] CBC + DIFF Normal [facility] Comment on above: Result Comment: CBC- COMPLETE BLOOD COUNT Performed By: #### 2 91070 #### [place] [address] EO # 0.22 x10EE3/UL Normal 0.00 - 0.50 [facility] Comment on above: Performed By: #### 2 91872 #### [address],[place] [address] Eosinophils/100 WBC (Bld) 3.9 % Normal 0.0 - 7.0 [facility] Comment on above: Performed By: #### 2 79586 #### [facility],[address] [place] [address] Erythrocyte distribution width (RBC) [Ratio] 13.0 % Normal 12.0 - 15.6 [facility] Comment on above: Performed By: #### 2 97413 #### [facility],[address] [place] [address] Hematocrit (Bld) [Volume fraction] 44.1 % Normal 40.0 - 52.0 [facility] Comment on above: Performed By: #### 2 07222 #### [place] [address] Hemoglobin (Bld) [Mass/Vol] 14.7 g/dL Normal 13.0 - 17.5 [facility] Comment on above: Performed By: #### 2 12068 #### [facility],[address] [place] [address] Lymph # 1.19 x10EE3/UL Normal 0.80 - 2.80 [facility] Comment on above: Performed By: #### 2 85751 #### [place] [id number] Lymphocytes/100 WBC (Bld) 20.6 % Normal 20.0 - 45.0 [facility] Comment on above: Performed By: #### 2 12966 #### [facility],[address] [place] [address]16 MANUAL DIFF N/A Normal [facility] Comment on above: Performed By: #### 2 37718 #### [facility],[address] [place], [place] [id number] MCH (RBC) [Entitic mass] 31 pg Normal 27 - 33 [facility] Comment on above: Performed By: #### 2 60762 #### [facility],[address] [place] [address]196 MCHC 33 X10 3 Normal 32 - 36 [facility] Comment on above: Performed By: #### 2 02184 #### [facility],[address] [place] [address] 74887 MCV (RBC) [Entitic vol] 93 fL Normal 81 - 98 [facility] Comment on above: Performed By: #### 2 51077 #### [facility],[address] [place] [address]9315 [place] # 0.48 x10EE3/UL Normal 0.20 - 1.00 [facility] Comment on above: Performed By: #### 2 42982 #### [facility],[address] [place] [address] 04208 MONOS % 8.3 % Normal 0.0 - 10.0 [facility] Comment on above: Performed By: #### 2 44750 #### [facility],[address] [place] [address] 20338 Morphology Alonzo (Bld) [Interp] N/A Normal [facility] Comment on above: Performed By: #### 2 67053 #### [facility],[address] [place] [address] 39491 Neut # 3.87 x10EE3/UL Normal 1.50 - 7.10 [facility] Comment on above: Performed By: #### 2 62980 #### [facility],[address] [place] [address] 64119 Neutrophils/100 WBC (Bld) 66.7 % Normal 46.0 - 76.0 [facility] Comment on above: Performed By: #### 2 03111 #### [facility],[address] [place] [address] 87533 PLATELET 211 x10EE3/UL Normal 150 - 450 [facility] Comment on above: Performed By: #### 2 42593 #### [facility],[address] [place] [address] Platelet mean volume (Bld) [Entitic vol] 7.6 fL Normal 6.4 - 10.5 [facility] Comment on above: Result Comment: AUTO MATED DIFFERENTIAL Performed By: #### 2 08847 #### [facility],[address] [place] [address] RBC 4.74 x 10EE6/UL Normal 4.50 - 6.00 [facility] Comment on above: Performed By: #### 2 01566 #### [facility],[address] [place] [address] WBC 5.8 x 10EE3/UL Normal 4.5 - 10.8 [facility] Comment on above: Performed By: #### 2 25621 #### [facility],[address] [place] [address] CMP with eGFRon 05-31-2024 AGE 74 years Normal [facility] Comment on above: Performed By: #### 2 05091 #### [place] [address] Albumin [Mass/Vol] 3.5 g/dL Normal 3.4 - 5.0 [facility] Comment on above: Performed By: #### 2 91648 #### [facility],[address] [place] [address] Albumin/Globulin [Mass ratio] 1.0 {ratio} Normal 0.9 - 1.6 [facility] Comment on above: Performed By: #### 2 26969 #### [place] [address] ALK PHOS 131 U/L High 46 - 116 [facility] Comment on above: Performed By: #### 2 93747 #### [place] [address] ALT [Catalytic activity/Vol] 25 U/L Normal 16 - 63 [facility] Comment on above: Performed By: #### 2 50299 #### [facility],[address] [place] [address] 37716 Anion gap [Moles/Vol] 10 mmol/L Normal 10 - 20 [facility] Comment on above: Performed By: #### 2 77255 #### [facility],[address] [place] [address] 48826 AST [Catalytic activity/Vol] 24 U/L Normal 15 - 37 [facility] Comment on above: Performed By: #### 2 34725 #### [facility],[address] [place] [address] 86714 B/C RATIO 20 ratio Normal 0 - 30 [facility] Comment on above: Performed By: #### 2 07410 #### [facility],[address] [place] [address] 33070 Bilirubin [Mass/Vol] 0.8 mg/dL Normal 0.2 - 1.0 [facility] Comment on above: Performed By: #### 2 45595 #### [facility],[address] [place] [address] 35335 Calcium [Mass/Vol] 9.1 mg/dL Normal 8.5 - 10.1 [facility] Comment on above: Performed By: #### 2 49758 #### [facility],[address] [place] [address] 87609 Chloride [Moles/Vol] 102 mmol/L Normal 98 - 107 [facility] Comment on above: Performed By: #### 2 58022 #### [facility],[address] [place] [address] 21002 CMP with eGFR Normal [facility] Comment on above: Result Comment: COMP REHENSIVE METABOLIC PANEL Performed By: #### 2 86592 #### [facility],[address] [place] [address] 81389 CO2 [Moles/Vol] 32.6 mmol/L High 21.0 - 32.0 [facility] Comment on above: Performed By: #### 2 36259 #### [place] [address] Creatinine [Mass/Vol] 1.40 mg/dL High 0.70 - 1.30 [facility] Comment on above: Performed By: #### 2 80210 #### [facility],[address] [place] [address] eGFR 50 ML/MINUTE Low 60 - 999 [facility] Comment on above: Performed By: #### 2 12185 #### [place] [address] eGFR(AA) 60 ML/MINUTE Normal 60 - 999 [facility] Comment on above: Result Comment: ACCO RDING TO THE NATIONAL KIDNEY DISEASE EDUCATION PROGRAM(NKDE), A NORMAL eGFR IS A VALUE GREATER THAN OR EQUAL TO 60 ML/MIN/1.73 SQ METERS. CHRONIC KIDNEY DISEASE: <60mL/MIN/1.73 SQ METERS KIDNEY FAILURE: <15mL/MIN/1.73 SQ METERS THIS TEST SHOULD ONLY BE USED FOR PATIENTS 18 YEARS OF AGE AND OLDER. Performed By: #### 2 93083 #### [place] [id number] Globulin (S) [Mass/Vol] 3.6 g/dL Normal 1.5 - 3.8 [facility] Comment on above: Performed By: #### 2 31111 #### [facility],[address] [place], [place] [id number] Glucose [Mass/Vol] 118 mg/dL High 74 - 106 [facility] Comment on above: Performed By: #### 2 57175 #### [place] [id number] Potassium [Moles/Vol] 4.3 mmol/L Normal 3.5 - 5.1 [facility] Comment on above: Performed By: #### 2 94133 #### [facility],[address] [place], [place] [phone] Protein [Mass/Vol] 7.1 g/dL Normal 6.4 - 8.2 [facility] Comment on above: Performed By: #### 2 48685 #### [facility],[address] [place] [address] 71184 Sodium [Moles/Vol] 140 mmol/L Normal 136 - 145 [facility] Comment on above: Performed By: #### 2 41399 #### [facility],[address] [place], [place] [phone] Urea nitrogen [Mass/Vol] 28 mg/dL High 7 - 18 [facility] Comment on above: Performed By: #### 2 83639 #### [facility],[address] [place] [address] FOLATESon 05-31-2024 FOLATES 9.0 ng/ml Normal 8.6 - 58.9 [facility] Comment on above: Performed By: #### 2 57260 #### [facility],[address] [place], [place] [phone] HEMOGLOBIN A1C (POM)on 05-31 Glucose [Mass/Vol] 125.5 mg/dL High 0.0 - 0.0 [facility] Comment on above: Result Comment: BLDo HEMOGLOBIN A1C REFERENCE RANGESBLDo Suggested Diagnosis HbA1c(%) HbA1C (mmol/mol Diabetic >/=6.5 >/=48 Prediabetes 5.7 - 6.4 39 - 47 Normal <5.7 <39 Performed By: #### 2 73854 #### [facility],[address] [place], [place] [phone] HbA1c (Bld) [Mass fraction] 6.0 % Normal 0.0 - 6.5 [facility] Comment on above: Performed By: #### 2 99816 #### [facility],[address] [place], [place] [phone] IRON AND TIBCon 05-31-2024 %SATURATION 27 % Normal [facility] Comment on above: Performed By: #### 2 57763 #### [facility],[address] [place] [address] 16813 Iron [Mass/Vol] 91 ug/dL Normal 65 - 175 [facility] Comment on above: Performed By: #### 2 41717 #### [facility],[address] [place] [address] 32199 TIBC 339 ug/dl Normal 250 - 450 [facility] Comment on above: Performed By: #### 2 51158 #### [facility],[address] [place] [address] 27912 UIBC 248 ug/dL Normal 155 - 355 [facility] Comment on above: Performed By: #### 2 47429 #### [facility],[address] [place] [address] 07486 VITAMIN B-12on 05-31-2024 Cobalamin (Vitamin B12) [Mass/Vol] 587 pg/mL Normal 193 - 986 [facility] Comment on above: Performed By: #### 2 37819 #### [facility],[address] [place] [address] 39609 VITAMIN D, 25 HYDROXYon 04-0 VitD 41.40 ng/mL Normal 30.00 - 100 [facility] Comment on above: Result Comment: 25-O HD3 indicates both endogenous production and supplementation. 25-OHD2 is an indicator of exogenous sources, such as diet or supplementation. Therapy is based on measurement of Total 25-OHD, with levels <20 ng/mL indicative of Vitamin D deficiency, while levels between 20 ng/mL and 30 ng/mL suggest insufficiency. Optimal levels are >=30ng/mL. Vitamin D, 25-OH D3 Not Established Vitamin D, 25-OH D2 Not Established Performed By: #### 2 75863 #### [facility],[address] [place] [address] 24312 PROSTATE BXon 05-30-2024 PROSTATE BX ------ Patient Age/Sex Location Account Attending Physician RAMOS TRAN 74/M [facility] [id number] Dr. Damion Walter MD Specimen: [id number] Received: 05/31/24 Status: DIANE Nina Num: [id number] Spec Type: PROST BX Subm Dr: Dr. Damion Walter MD HEADER OPERATION: Prostate biopsy PRE-OP DIAGNOSIS: Elevated PSA TISSUE SUBMITTED: A - Right apex, B - Right mid, C - Right base, D - Left apex, E - Left mid, F - Left base MICROSCOPIC DIAGNOSIS A. Prostate, right apex, biopsy: - Adenocarcinoma Precious 3+4(30%)=7, 1/1 core, involving 20% of the tissue. B. Prostate, right mid, biopsy: - Benign prostate tissue. C. Prostate, right base, biopsy: - Benign prostate tissue. D. Prostate, left apex, biopsy: - Benign prostate tissue with focal active chronic inflammation. E. Prostate, left mid, biopsy: - Benign prostate tissue. F. Prostate, left base, biopsy: - Benign prostate tissue. MICROSCOPIC DESCRIPTION Slides are reviewed. GROSS DESCRIPTION A. Received in formalin in a container labeled with the patient's name, date of , and RA is a 1.5 x 0.1 cm white-traylor and wispy core biopsy of soft tissue. Submitted in toto in A1. B. Received in formalin in a container labeled with the patient's name, date of , and RM is a 1.2 x 0.1 cm white-traylor and wispy core biopsy of soft tissue. Submitted in toto in B1. C. Received in formalin in a container labeled with the patient's name, date of , and RB is a 1.0 x 0.1 cm white-traylor and wispy core biopsy of soft tissue. Submitted in toto in C1. Patient Age/Sex Location Account Attending Physician RAMOS TRAN 74/M [facility]SPEC [id number] Dr. Damion Walter MD D. Received in formalin in a container labeled with the patient's name, date of , and LA is a 1.2 x 0.1 cm white-traylor and wispy core biopsy of soft tissue. Submitted in toto in D1. E. Received in formalin in a container labeled with the patient's name, date of , and LM is a 0.8 x 0.1 cm white-traylor and wispy core biopsy of soft tissue. Submitted in toto in E 1. F. Received in formalin in a container labeled with the patient's name, date of , and LB is a 1.1 x 0.1 cm white-traylor and wispy core biopsy of soft tissue. Submitted in toto in F1. [facility] 05-31-2024 CPT: G0146 Patient Age/Sex Location Account Attending Physician RAMOS TRAN/[place] [facility]SPEC [id number] Dr. Damion Walter MD Signed (signature on file) Dr. Lilian Whitehead MD 06/07/24 1529 Normal [facility] Comment on above: Performed By: #### P PROSB #### [facility] [address] [place], [address] [place] CARDIAC STRESS (SPECT) W/ TREADMILLon 05-10-2024 [place] CARDIAC STRESS (SPECT) W/TREADMILL [place] [address] Patient: RAMOS TRAN Phone#: : 1950 Age: 74 Gender: M Pt. Type: Out Account: [id number] Location: [facility] Ordering: BRANDEN MADERA Exam Date: 05/10/2024/8:11 Family Phys: ERMELINDA TATE Charge Code: 970382 Physician: [place] Order #: [id number] Dose#: PROCEDURE: CARDIAC STRESS SPECT WITH TREADMILL EXERCISE HISTORY: Patient is a 74-year-old male with history of hypertension COMPARISON: None. INDICATIONS: Dyspnea on Exertion TECHNIQUE: Resting and stress SPECT images acquired in the horizontal long, vertical long and short axis views. Protocol: Calvin Duration: 2:59 minutes Peak Heart Rate: 130 bpm, which is 87% of maximum predicted heart rate. Workload: METs REST DOSE: 11.3 mCi Sestamibi. STRESS DOSE: 30.8 mCi Sestamibi. INTERPRETATION: Resting Images: Resting images showed mild perfusion defect in the basal to distal inferior wall which improved with stress. Perfusion defect likely from subdiaphragmatic attenuation artifact seen in rotating planar images Stress Images: Stress showed normal perfusion/homogeneous radiotracer uptake of the left ventricle. Gated SPECT/wall motion: Gated SPECT showed calculated ejection fraction of 58%. There are no regional wall motion abnormality seen. TID ratio is 1.06 CONCLUSION: 1. Nuclear stress test showed no conclusive evidence of reversible ischemia or infarct. 2. Calculated ejection fraction is 58% with normal wall motion 3. TID ratio is normal Continued Report - Page 2 of 2 Patient: RAMOS TRAN Phone#: : 1950 Age: 74 Gender: M Pt. Type: Out Account: [id number] Location: 052 Ordering: BRANDEN MADERA Exam Date: 05/10/2024/8:11 Family Phys: ERMELINDA TATE Charge Code: 759770 Physician: [place] Order #: [id number] Dose#: Approved by: BRANDEN MADERA MD on 05/11/2024 at 8:59 Normal [facility] [place] EXERCISE STRESS TEST (W/C ARDIAC STUDYon 05-10-2024 [place] EXERCISE STRESS TEST (W/CARDIAC STUDY [place] [address] Patient: RAMOS TRAN Phone#: : 1950 Age: 74 Gender: M Pt. Type: Out Account: [id number] Location: 052 Ordering: BRANDEN MADERA Exam Date: 05/10/2024/8:11 Family Phys: ERMELINDA TATE Charge Code: 959383 Physician: [place] Order #: [id number] Dose#: PROCEDURE: ELECTROCARDIOGRAM STRESS TEST HISTORY: Patient is 74-year-old male with dilated ascending aorta and hypertension COMPARISON: None. INDICATIONS: Dyspnea on exertion TECHNIQUE: Electrocardiogram stress test was performed using the protocol listed below. STRESS RESULTS: Protocol: Calvin Duration: 02:59minutes Reason for termination: Dyspnea Resting Heart Rate: 78 bpm. Resting Blood Pressure: 143/90 mmHg Peak Heart Rate: 130 which is 87% of maximum predicted heart rate Peak Blood Pressure: 170/106 occurred 02:01 into recovery Workload: 4.60 METs. Symptoms with stress: Patient did not complain of any chest pain with stress. Stress test was ended due to shortness of breath EKG Data EKG at Baseline: EKG at baseline showed sinus rhythm at 75 BPM with first-degree AV block. Otherwise normal EKG EKG with Stress: EKG with stress showed sinus tachycardia at 129 BPM. There are no ST or T- wave changes from baseline to suggest inducible ischemia. CONCLUSION: 1. Patient did not complain of any chest with stress. Stress test was ended shortness of breath 2. Patient had appropriate heart rate and blood pressure response with stress. 3. Patient was able to achieve poor workload capacity. 4. Stress EKG is negative for inducible ischemia 5. Nuclear images will be read and reported separately. [place] [id number] Patient: RAMOS TRAN Phone#: : 1950 Age: 74 Gender: M Pt. Type: Out Account: [id number] Location: [facility] Ordering: BRANDEN MADERA Exam Date: 05/10/2024/8:11 Family Phys: ERMELINDA TATE Charge Code: [id number] Physician: [place] Order #: [id number] Dose#: Dictated by: BRANDEN MADERA MD on 05/10/2024 at 11:51 Approved by: BRANDEN MADERA MD on 05/10/2024 at 11:54 Normal [facility] Diagnostic total prostate sp ecific antigen (PSA) measurementOrdered By: Milagro Mckeon on 05-03-2024 Prostate Specific Antigen Total 8.39 ng/mL High 0.00-4.00 [facility] Comment on above: This test was perfor med using the [employer] tPSA method. Measured values of a patient sample can vary depending on the testing procedure used. PSA values determined on patient samples by different testing procedures cannot be used interchangeably. If there is a change in PSA assays while monitoring therapy, sequential testing should be performed to confirm baseline values. PSA,Total- Diagnosticon 03-1 1-2025 PSA, DIAGNOSTIC 8.39 ng/mL High 0.00-4.00 [facility] Comment on above: Result Comment: This test was performed using the [employer] tPSA method. Measured values of a patient??sample can vary depending on the testing procedure used. PSA values determined on patient samples by different testing procedures cannot be used interchangeably. If there is a change in PSA assays while monitoring therapy, sequential testing should be performed to confirm baseline values. Performed By: #### L 501.9940 #### [facility] [address] [place], [address] CMP with eGFRon 04-12-2024 AGE 74 years Normal [facility] Comment on above: Performed By: #### 2 51461 #### [facility],[address] [place] [address] 86602 Albumin [Mass/Vol] 3.6 g/dL Normal 3.4 - 5.0 [facility] Comment on above: Performed By: #### 2 66928 #### [facility],[address] [place] [address] 54590 Albumin/Globulin [Mass ratio] 0.8 {ratio} Low 0.9 - 1.6 [facility] Comment on above: Performed By: #### 2 70338 #### [address] [address] ALK PHOS 155 U/L High 46 - 116 [facility] Comment on above: Performed By: #### 2 36192 #### [facility],[address] [place] [address] 38829 ALT [Catalytic activity/Vol] 21 U/L Normal 16 - 63 [facility] Comment on above: Performed By: #### 2 63670 #### [facility],[address] [place] [address] 50255 Anion gap [Moles/Vol] 10 mmol/L Normal 10 - 20 [facility] Comment on above: Performed By: #### 2 15567 #### [address],[place] [address] AST [Catalytic activity/Vol] 15 U/L Normal 15 - 37 [facility] Comment on above: Performed By: #### 2 87977 #### [facility],[address] [place] [address] 45043 B/C RATIO 18 ratio Normal 0 - 30 [facility] Comment on above: Performed By: #### 2 09219 #### [facility],[address] [place] [address] 60655 Bilirubin [Mass/Vol] 0.7 mg/dL Normal 0.2 - 1.0 [facility] Comment on above: Performed By: #### 2 51798 #### [facility],[address] [place] [address] 38281 Calcium [Mass/Vol] 9.0 mg/dL Normal 8.5 - 10.1 [facility] Comment on above: Performed By: #### 2 51217 #### [facility],[address] [place] [address] 41853 Chloride [Moles/Vol] 101 mmol/L Normal 98 - 107 [facility] Comment on above: Performed By: #### 2 77927 #### [facility],[address] [place] [address] 03297 CMP with eGFR Normal [facility] Comment on above: Result Comment: COMP REHENSIVE METABOLIC PANEL Performed By: #### 2 19032 #### [facility],[address] [place] [address] 87095 CO2 [Moles/Vol] 31.7 mmol/L Normal 21.0 - 32.0 [facility] Comment on above: Performed By: #### 2 18355 #### [facility],[address] [place] [address] 37978 Creatinine [Mass/Vol] 1.21 mg/dL Normal 0.70 - 1.30 [facility] Comment on above: Performed By: #### 2 94214 #### [facility],[address] [place] [address] 91334 eGFR 59 ML/MINUTE Low 60 - 999 [facility] Comment on above: Performed By: #### 2 84720 #### [facility],[address] [place] [address] 18164 GFR/1.73 sq M.predicted among non-blacks MDRD (S/P/Bld) [Vol rate/Area] mL/min/{1.73_m2} Normal 60 - 999 [facility] Comment on above: Result Comment: ACCO RDING TO THE NATIONAL KIDNEY DISEASE EDUCATION PROGRAM(NKDE), A NORMAL eGFR IS A VALUE GREATER THAN OR EQUAL TO 60 ML/MIN/1.73 SQ METERS. CHRONIC KIDNEY DISEASE: <60mL/MIN/1.73 SQ METERS KIDNEY FAILURE: <15mL/MIN/1.73 SQ METERS THIS TEST SHOULD ONLY BE USED FOR PATIENTS 18 YEARS OF AGE AND OLDER. Performed By: #### 2 93280 #### [facility],[address] [place] [address] 91330 Globulin (S) [Mass/Vol] 4.3 g/dL High 1.5 - 3.8 [facility] Comment on above: Performed By: #### 2 92168 #### [facility],[address] [place] [address] 48215 Glucose [Mass/Vol] 99 mg/dL Normal 74 - 106 [facility] Comment on above: Performed By: #### 2 09907 #### [facility],[address] [place] [address] 36298 Potassium [Moles/Vol] 4.5 mmol/L Normal 3.5 - 5.1 [facility] Comment on above: Performed By: #### 2 17733 #### [facility],[address] [place] [address] 18931 Protein [Mass/Vol] 7.9 g/dL Normal 6.4 - 8.2 [facility] Comment on above: Performed By: #### 2 59695 #### [facility],[address] [place] [address] 81069 Sodium [Moles/Vol] 138 mmol/L Normal 136 - 145 [facility] Comment on above: Performed By: #### 2 88127 #### [facility],[address] [place] [address] 46645 Urea nitrogen [Mass/Vol] 22 mg/dL High 7 - 18 [facility] Comment on above: Performed By: #### 2 43387 #### [facility],[address] [place] [address] 78166 PSA, FREE [CCL]on 12-12-2023 PSA, Diagnostic 8.10 ng/mL High <2.60 [facility] Comment on above: Result Comment: Tota l PSA test methodology used is the Electrochemiluminescence Immunoassay by [employer]. Total PSA values by differing methodologies cannot be interchanged. For an individual patient, the significance of a PSA level should be interpreted in a broad clinical context, including age, race, family history, digital rectal exam, prostate size, results of prior testing (prostate biopsy, free PSA, PCA3), and use of 5-alpha reductase inhibitors. Considering the high incidence of asymptomatic cancer in the general population that may not pose an ultimate risk to a patient, the decision to recommend urological evaluation or prostate biopsy should be individualized after consideration of all these factors. REFERENCE: Coby Carmona M.D., M.P.H., Sae De La Torre M.D., Ph.D., Ron Garza M.D., Taya Browning, M.P.H., Annetta Ortiz, Elyssa. Effect of Verification Bias on Screening for Prostate Cancer by Measurement of Prostatic Specific Antigen. N Engl J Med 2003,349:335-42. Performed By: #### 2 83244 #### [facility],[address] [place] [address] 34248 PSA, Percent Free 10 % Normal [facility] Comment on above: Result Comment: Tota l and free PSA test methodology used is the Electrochemiluminescence Immunoassay by [employer]. Total or free PSA values by differing methodologies cannot be interchanged. The below table lists the probability of finding prostate cancer upon needle biopsy, for men 50 years or older and total PSA concentrations from 4.0-10.0 ng/mL. Results should be interpreted within the broader clinical context. Free PSA(%) 50-59 years 60-69 years >69 years <11 49.2% 57.5% 64.5% 11-18 26.9% 33.9% 40.8% 19-25 18.3% 23.9% 29.7% >25 9.1% 12.2% 15.8% [facility] [address] [place] [address] Sridhar Bardales III, M.D. [id number] Performed By: #### 2 90165 #### [facility],[address] [place] [address] CBC + DIFFon 12-11-2023 Baso # 0.03 x10EE3/UL Normal 0.00 - 0.10 [facility] Comment on above: Performed By: #### 2 10312 #### [address] [address] Basophils/100 WBC (Bld) 0.6 % Normal 0.0 - 2.0 [facility] Comment on above: Performed By: #### 2 94319 #### [facility],[address] [place] [address] 54292 CBC + DIFF Normal [facility] Comment on above: Result Comment: CBC- COMPLETE BLOOD COUNT Performed By: #### 2 50312 #### [facility],[address] [place] [address] 68141 EO # 0.14 x10EE3/UL Normal 0.00 - 0.50 [facility] Comment on above: Performed By: #### 2 82419 #### [facility],[address] [place] [address] 56652 Eosinophils/100 WBC (Bld) 2.4 % Normal 0.0 - 7.0 [facility] Comment on above: Performed By: #### 2 71734 #### [facility],[address] [place] [address] Erythrocyte distribution width (RBC) [Ratio] 12.3 % Normal 12.0 - 15.6 [facility] Comment on above: Performed By: #### 2 99647 #### [facility],[address] [place] [address] Hematocrit (Bld) [Volume fraction] 43.7 % Normal 40.0 - 52.0 [facility] Comment on above: Performed By: #### 2 20415 #### [facility],[address] [place] [address] Hemoglobin (Bld) [Mass/Vol] 14.1 g/dL Normal 13.0 - 17.5 [facility] Comment on above: Performed By: #### 2 33296 #### [place] [address] Lymph # 1.32 x10EE3/UL Normal 0.80 - 2.80 [facility] Comment on above: Performed By: #### 2 08452 #### [place] [address] Lymphocytes/100 WBC (Bld) 23.4 % Normal 20.0 - 45.0 [facility] Comment on above: Performed By: #### 2 24791 #### [facility],[address] [place] [address] MANUAL DIFF N/A Normal [facility] Comment on above: Performed By: #### 2 49625 #### [facility],[address] [place], [place] [address] MCH (RBC) [Entitic mass] 31 pg Normal 27 - 33 [facility] Comment on above: Performed By: #### 2 97874 #### [place] [address] MCHC 32 X10 3 Normal 32 - 36 [facility] Comment on above: Performed By: #### 2 64319 #### [facility],[address] [place] [address] 13463 MCV (RBC) [Entitic vol] 97 fL Normal 81 - 98 [facility] Comment on above: Performed By: #### 2 16682 #### [facility],[address] [place] [address] 20095 [place] # 0.33 x10EE3/UL Normal 0.20 - 1.00 [facility] Comment on above: Performed By: #### 2 36800 #### [facility],[address] [place] [address] 06889 MONOS % 5.9 % Normal 0.0 - 10.0 [facility] Comment on above: Performed By: #### 2 78048 #### [facility],[address] [place] [address] 01573 Morphology Alonzo (Bld) [Interp] N/A Normal [facility] Comment on above: Performed By: #### 2 05066 #### [facility],[address] [place] [address] 87951 Neut # 3.80 x10EE3/UL Normal 1.50 - 7.10 [facility] Comment on above: Performed By: #### 2 62409 #### [facility],[address] [place] [address] 27066 Neutrophils/100 WBC (Bld) 67.7 % Normal 46.0 - 76.0 [facility] Comment on above: Performed By: #### 2 82757 #### [facility],[address] [place] [address] 54204 PLATELET 200 x10EE3/UL Normal 150 - 450 [facility] Comment on above: Performed By: #### 2 37743 #### [facility],[address] [place] [address] 87152 Platelet mean volume (Bld) [Entitic vol] 7.6 fL Normal 6.4 - 10.5 [facility] Comment on above: Result Comment: AUTO MATED DIFFERENTIAL Performed By: #### 2 75499 #### [facility],[address] [place] [address] RBC 4.49 x 10EE6/UL Low 4.50 - 6.00 [facility] Comment on above: Performed By: #### 2 95099 #### [facility],[address] [place] [address] WBC 5.6 x 10EE3/UL Normal 4.5 - 10.8 [facility] Comment on above: Performed By: #### 2 75776 #### [facility],[address] [place] [address] CMP with eGFRon 12-11-2023 AGE 73 years Normal [facility] Comment on above: Performed By: #### 2 58873 #### [place] [address] Albumin [Mass/Vol] 3.6 g/dL Normal 3.4 - 5.0 [facility] Comment on above: Performed By: #### 2 41797 #### [place] [address] Albumin/Globulin [Mass ratio] 0.9 {ratio} Normal 0.9 - 1.6 [facility] Comment on above: Performed By: #### 2 56841 #### [facility],[address] [place], [place] [id number] ALK PHOS 109 U/L Normal 46 - 116 [facility] Comment on above: Performed By: #### 2 67095 #### [place] [id number] ALT [Catalytic activity/Vol] 23 U/L Normal 16 - 63 [facility] Comment on above: Performed By: #### 2 17916 #### [facility],[address] [place], [place] [id number] Anion gap [Moles/Vol] 13 mmol/L Normal 10 - 20 [facility] Comment on above: Performed By: #### 2 89733 #### [facility],[address] [place] [address] AST [Catalytic activity/Vol] 23 U/L Normal 15 - 37 [facility] Comment on above: Performed By: #### 2 57761 #### [facility],[address] [place] [address] B/C RATIO 27 ratio Normal 0 - 30 [facility] Comment on above: Performed By: #### 2 48106 #### [facility],[address] [place] [address] Bilirubin [Mass/Vol] 0.7 mg/dL Normal 0.2 - 1.0 [facility] Comment on above: Performed By: #### 2 44281 #### [facility],[address] [place] [address] Calcium [Mass/Vol] 9.1 mg/dL Normal 8.5 - 10.1 [facility] Comment on above: Performed By: #### 2 44478 #### [facility],[address] [place] [address] Chloride [Moles/Vol] 101 mmol/L Normal 98 - 107 [facility] Comment on above: Performed By: #### 2 69683 #### [facility],[address] [place] [address] CMP with eGFR Normal [facility] Comment on above: Result Comment: COMP REHENSIVE METABOLIC PANEL Performed By: #### 2 81743 #### [facility],[address] [place] [address] CO2 [Moles/Vol] 29.4 mmol/L Normal 21.0 - 32.0 [facility] Comment on above: Performed By: #### 2 29467 #### [facility],[address] [place], [place] [phone] Creatinine [Mass/Vol] 1.27 mg/dL Normal 0.70 - 1.30 [facility] Comment on above: Performed By: #### 2 32804 #### [facility],[address] [place], [place] [phone] eGFR 56 ML/MINUTE Low 60 - 999 [facility] Comment on above: Performed By: #### 2 98281 #### [place] [address] GFR/1.73 sq M.predicted among non-blacks MDRD (S/P/Bld) [Vol rate/Area] mL/min/{1.73_m2} Normal 60 - 999 [facility] Comment on above: Result Comment: ACCO RDING TO THE NATIONAL KIDNEY DISEASE EDUCATION PROGRAM(NKDE), A NORMAL eGFR IS A VALUE GREATER THAN OR EQUAL TO 60 ML/MIN/1.73 SQ METERS. CHRONIC KIDNEY DISEASE: <60mL/MIN/1.73 SQ METERS KIDNEY FAILURE: <15mL/MIN/1.73 SQ METERS THIS TEST SHOULD ONLY BE USED FOR PATIENTS 18 YEARS OF AGE AND OLDER. Performed By: #### 2 37836 #### [place] [address] Globulin (S) [Mass/Vol] 4.2 g/dL High 1.5 - 3.8 [facility] Comment on above: Performed By: #### 2 80745 #### [facility],[address] [place] [address] Glucose [Mass/Vol] 124 mg/dL High 74 - 106 [facility] Comment on above: Performed By: #### 2 10256 #### [place] [id number] Potassium [Moles/Vol] 4.0 mmol/L Normal 3.5 - 5.1 [facility] Comment on above: Performed By: #### 2 18740 #### [place] [address] Protein [Mass/Vol] 7.8 g/dL Normal 6.4 - 8.2 [facility] Comment on above: Performed By: #### 2 17516 #### [facility],[address] [place] [address]407 Sodium [Moles/Vol] 139 mmol/L Normal 136 - 145 [facility] Comment on above: Performed By: #### 2 52071 #### [facility],[address] [place] [address] 69809 Urea nitrogen [Mass/Vol] 34 mg/dL High [facility] Comment on above: Performed By: #### 2 36465 #### [facility],[address] [place] [address] FERRITINon 12-11-2023 Ferritin [Mass/Vol] 198 ng/mL Normal 8 - 388 [facility] Comment on above: Performed By: #### 2 89341 #### [facility],[address] [place] [address] 06738 FOLATESon 12-11-2023 FOLATES 14.1 ng/ml Normal 8.6 - 58.9 [facility] Comment on above: Performed By: #### 2 36322 #### [facility],[address] [place] [address] 22959 HEMOGLOBIN A1C (POM)on 12-10 Glucose [Mass/Vol] 125.5 mg/dL High 0.0 - 0.0 [facility] Comment on above: Result Comment: BLDo HEMOGLOBIN A1C REFERENCE RANGESBLDo Suggested Diagnosis HbA1c(%) HbA1C (mmol/mol Diabetic >/=6.5 >/=48 Prediabetes 5.7 - 6.4 39 - 47 Normal <5.7 <39 Performed By: #### 2 60701 #### [facility],[address] [place] [address] 01063 HbA1c (Bld) [Mass fraction] 6.0 % Normal 0.0 - 6.5 [facility] Comment on above: Performed By: #### 2 18801 #### [facility],[address] [place] [address] 37806 IRON AND TIBCon 12-11-2023 %SATURATION 25 % Normal [facility] Comment on above: Performed By: #### 2 50632 #### [facility],[address] [place] [address] 31765 Iron [Mass/Vol] 103 ug/dL Normal 65 - 175 [facility] Comment on above: Performed By: #### 2 29769 #### [facility],[address] [place] [address] 10428 TIBC 417 ug/dl Normal 250 - 450 [facility] Comment on above: Performed By: #### 2 03235 #### [facility],[address] [place] [address] 80907 UIBC 314 ug/dL Normal 155 - 355 [facility] Comment on above: Performed By: #### 2 95351 #### [facility],[address] [place] [address] 76666 VITAMIN B-12on 12-11-2023 Cobalamin (Vitamin B12) [Mass/Vol] 512 pg/mL Normal 193 - 986 [facility] Comment on above: Performed By: #### 2 45068 #### [facility],[address] [place] [address] 58971 VITAMIN D, 25 HYDROXYon 11-23 VitD 39.50 ng/mL Normal 30.00 - 100 [facility] Comment on above: Result Comment: 25-O HD3 indicates both endogenous production and supplementation. 25-OHD2 is an indicator of exogenous sources, such as diet or supplementation. Therapy is based on measurement of Total 25-OHD, with levels <20 ng/mL indicative of Vitamin D deficiency, while levels between 20 ng/mL and 30 ng/mL suggest insufficiency. Optimal levels are >=30ng/mL. Vitamin D, 25-OH D3 Not Established Vitamin D, 25-OH D2 Not Established Performed By: #### 2 43551 #### [facility],[address] [place] [address] ANGIOGRAPHY CHESTon 10-22 Ct angiography chest w/contrast/noncontrast [address] [address] Patient: RAMOS TRAN Phone#: : 1950 Age: 73 Gender: M Pt. Type: Out Account: [id number] Location: [facility] Ordering: SANTOS DENISE Exam Date: 10/23/2023/15:10 Family Phys: ERMELINDA JAYGIALidia Charge Code: [id number] Physician: [place] Order #: [id number] Dose#: 22.80 PROCEDURE: CT ANGIOGRAPHY CHEST WITH CONTRAST COMPARISON: [facility], CT, CHEST PE W CON, 11/10/2022, 11:46. [facility], CT, CHEST W/O CON, 09/11/2023, 13:42. INDICATIONS: Ascending aortic aneurysm. TECHNIQUE: After obtaining the patient's consent, CT images were obtained with non-ionic intravenous contrast material. Multi-planar images were created to optimize visualization of vascular anatomy with MPR/MIPS and 3D imaging. All CT scans at this facility use dose modulation, iterative reconstruction, and/or weight based dosing when appropriate to reduce radiation dose to as low as reasonably achievable. IV CONTRAST: Omnipaque 350,100ml TOTAL DOSE: 22.80 CTDIvol(mGy) FINDINGS: VASCULATURE: Normal. No visible pulmonary arterial thrombus or attenuation. AORTA: Ductus arteriosus bump of the aortic arch is present and unchanged from previous exams. LUNGS: Consolidation is present in the left lingula consistent with atelectasis versus infiltrate. MARIELLE: Normal. No mass or adenopathy. MEDIASTINUM: Normal. No mass or adenopathy. CARDIAC: Normal. No enlargement, pericardial thickening, or significant calcification. PLEURA: Normal. No mass or effusion. CHEST WALL: Normal. No mass or axillary adenopathy. LIMITED ABDOMEN: Normal. Limited images of the upper abdomen are unremarkable. BONES: Loss of height of a midthoracic vertebral bodies unchanged from previous exam. OTHER: Negative. CONCLUSION: 1. Left atelectasis versus consolidation. Continued Report - Page 2 of 2 Patient: RAMOS TRAN Phone#: : 1950 Age: 73 Gender: M Pt. Type: Out Account: [id number] Location: 052 Ordering: SANTOS DENISE Exam Date: 10/23/2023/15:10 Family Phys: ERMELINDA TATE Charge Code: 964554 Physician: [place] Order #: [id number] Dose#: 22.80 2. 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 No other aneurysmal dilatation is identified. Dictated by: Maryam Lucero MD on 10/23/2023 at 15:44 Approved by: Maryam Lucero MD on 10/23/2023 at 15:56 Normal [facility] Final Surgical Pathology Rep [facility] 10-14-2023 Final Surgical Pathology Report . Pathology Reports Accession: Collected Date/Time: Received Date/Time: Pathologist: [id number] 10/12/2023 11:18 EDT 10/13/2023 08:45 EDT RERE AYALA MD Final Surgical Pathology Report DIAGNOSIS: A. TRANSVERSE COLON POLYP: - TUBULAR ADENOMA B. SPLENIC FLEXURE POLYP: - TUBULAR ADENOMA COMMENT: [facility] [id number] CLINICAL INFORMATION: COLON SCREENING SPECIMEN: A TRANSVERSE POLYP X 1 B SPLENIC FLEXURE POLYP GROSS DESCRIPTION: All parts labelled with patient name and [id number] A. Received in formalin labeled transverse polyp is 1 zuñiga tissue fragment measuring 0.3 x 0.2 cm. TS-1 B. Received in formalin labeled splenic flexure polyp are 2 zuñiga tissue fragments measuring 0.1 and 0.3 x 0.2 cm.. TS-1 Donna Lee, Grossing Director Home/ Dr. Bernardo Plata, Pathologist Performed by Donna Lee MICROSCOPIC DESCRIPTION: The microscopic examination is performed, except in the case of Gross Only. Electronically Signed by Pathology Report verified by [facility] RERE AYALA Sign out Date: 10/14/2023 11:01 Performing Lab: [facility], [address] [place] [address] Pathology Dept Disclaimer If ancillary studies were utilized, the following Laboratory Developed Test (LDT) disclaimer will apply: Under CLIA requirements, [facility] is qualified to perform high complexity testing. For all ancillary stains, positive and negative controls stain appropriately. Performance characteristics of immunohistochemical and chromogenic in-situ hybridization tests have been determined by [facility]. These tests are used for clinical purposes, They should not be regarded as investigational or for research. Normal [facility] ([place]) PSA, TOTALon 06-17-2023 PSA, TOTAL 6.86 ng/mL High < OR = 4.00 [facility] Comment on above: Result Comment: The total PSA value from this assay system is standardized against the WHO standard. The test result will be approximately 20% lower when compared to the equimolar-standardized total PSA (Jacob Promise). Comparison of serial PSA results should be interpreted with this fact in mind. This test was performed using the Siemens chemiluminescent method. Values obtained from different assay methods cannot be used interchangeably. PSA levels, regardless of value, should not be interpreted as absolute evidence of the presence or absence of disease. Performed By: #### 5 363 #### [facility] [address], [address] [place] [address] Senior Electrical Design Engineer: Sherman Ken MD No Panel Informationon 06-15 PSA, TOTAL 6.86 ng/mL Abnormal [facility], [facility]. Final Surgical Pathology Rep [facility] 03-24-2023 Final Surgical Pathology Report . Pathology Reports Accession: Collected Date/Time: Received Date/Time: Pathologist: [id number] 03/20/2023 08:57 EST 03/23/2023 08:57 MD RAI ALMAGUER Final Surgical Pathology Report DIAGNOSIS: SKIN AND SOFT TISSUE, UMBILICUS, EXCISION: - HERNIA SAC - SKIN WITH MILD DERMAL FIBROSIS CLINICAL INFORMATION: UMBILICAL HERNIA SPECIMEN: A. HERNIA TISSUE GROSS DESCRIPTION: A. Received in formalin, labeled with the patients name, Case # [id number], and hernia tissue is a portion of zuñiga wrinkled skin measuring 7.5 x 6.5 x 1.5 cm accompanied by yellow lobulated adipose tissue partially surfaced by a thin membranous soft tissue measuring 10.5 x 10 x 4 cm. The adipose tissue and skin are both serially sectioned to reveal no masses or nodules identified. RS -2, A1 -skin, A2-adipose tissue. Dictated by ELEAZAR AGUILAR MICROSCOPIC DESCRIPTION: The microscopic examination is performed, except in the case of Gross Only. Electronically Signed by Pathology Report verified by [facility] RAI DOBBS MD Sign out Date: 03/24/2023 11:35 Performing Lab: [facility], [address] [place] [address] Pathology Dept Disclaimer If ancillary studies were utilized, the following Laboratory Developed Test (LDT) disclaimer will apply: Under CLIA requirements, [facility] is qualified to perform high complexity testing. For all ancillary stains, positive and negative controls stain appropriately. Performance characteristics of immunohistochemical and chromogenic in-situ hybridization tests have been determined by [facility]. These tests are used for clinical purposes, They should not be regarded as investigational or for research. Normal [facility] ([place]) COMPREHENSIVE METABOLIC PANE Miguel Angel 12-10-2022 Albumin [Mass/Vol] 4.1 g/dL Normal 3.6-5.1 [facility] Comment on above: Performed By: #### 5 363, 7600, 29470 #### [facility] [place] [address] Senior Electrical Design Engineer: Sherman Ken MD Albumin/Globulin [Mass ratio] 1.3 {ratio} Normal 1.0-2.5 [facility] Comment on above: Performed By: #### 5 363, 7600, 43167 #### [facility] [place] [address] Senior Electrical Design Engineer: Sherman Ken MD ALP [Catalytic activity/Vol] 101 U/L Normal 35-144 [facility] Comment on above: Performed By: #### 5 363, 7600, 89959 #### [facility] [place] [address] Senior Electrical Design Engineer: Sherman Ken MD ALT [Catalytic activity/Vol] 14 U/L Normal 9-46 [facility] Comment on above: Performed By: #### 5 363, 7600, 69740 #### [facility] of [address], [address] [place] [address] Senior Electrical Design Engineer: Sherman Ken MD AST [Catalytic activity/Vol] 18 U/L Normal 10-35 [facility] Comment on above: Performed By: #### 5 363, 7600, 05311 #### [facility] of [address], [address] [place] [address] Senior Electrical Design Engineer: Sherman Ken MD Bilirubin [Mass/Vol] 0.6 mg/dL Normal 0.2-1.2 [facility] Comment on above: Performed By: #### 5 363, 7600, 02036 #### [facility] of [address], [address] [place] [address] Senior Electrical Design Engineer: Sherman Ken MD BUN/CREATININE RATIO SEE NOTE: Normal 6-22 [facility] Comment on above: Result Comment: Not Reported: BUN and Creatinine are within reference range. Performed By: #### 5 363, 7600, 15519 #### [facility] of [address], [address] [place] [address] Senior Electrical Design Engineer: Sherman Ken MD Calcium [Mass/Vol] 9.5 mg/dL Normal 8.6-10.3 [facility] Comment on above: Performed By: #### 5 363, 7600, 25746 #### [facility] of [address], [address] [place] [address] Senior Electrical Design Engineer: Sherman Ken MD Chloride [Moles/Vol] 100 mmol/L Normal 98-110 [facility] Comment on above: Performed By: #### 5 363, 7600, 68664 #### [facility] of [address], [address] [place] [address] Senior Electrical Design Engineer: Sherman Ken MD CO2 [Moles/Vol] 30 mmol/L Normal 20-32 [facility] Comment on above: Performed By: #### 5 363, 7600, 06193 #### [facility] of [address], [address] [place] [address] Senior Electrical Design Engineer: Sherman Ken MD Creatinine [Mass/Vol] 1.02 mg/dL Normal 0.70-1.[address] [facility] [address] [facility] Comment on above: Performed By: #### 5 363, 7600, 57354 #### [facility] [place] [address] Senior Electrical Design Engineer: Sherman Ken MD GFR/1.73 sq M.predicted among non-blacks MDRD (S/P/Bld) [Vol rate/Area] 79 mL/min/{1.73_m2} Normal > OR = 60 [facility] Comment on above: Performed By: #### 5 363, 7600, 93429 #### [facility] [address], [address] [place] [address] Senior Electrical Design Engineer: Sherman Ken MD Globulin (S) [Mass/Vol] 3.2 g/dL Normal 1.9-3.7 [facility] Comment on above: Performed By: #### 5 363, 0, 37458 #### [facility] [address], [address] [place] [address] Senior Electrical Design Engineer: Sherman Ken MD Glucose [Mass/Vol] 102 mg/dL High 65-99 [facility] Comment on above: Result Comment: Fasting reference interval For someone without known diabetes, a glucose value between 100 and 125 mg/dL is consistent with prediabetes and should be confirmed with a follow-up test. Performed By: #### 5 363, 0, 12055 #### [facility] [address], [address] [place] [address] Senior Electrical Design Engineer: Sherman Ken MD Potassium [Moles/Vol] 4.7 mmol/L Normal 3.5-5.[address] [facility] [address] [facility] Comment on above: Performed By: #### 5 363, 7600, 08805 #### [facility] [place] [address] Senior Electrical Design Engineer: Sherman Ken MD Protein [Mass/Vol] 7.3 g/dL Normal 6.1-8.1 [facility] Comment on above: Performed By: #### 5 363, 7600, 81123 #### [facility] of [address], [address] [place] [address] Senior Electrical Design Engineer: Sherman Ken MD Sodium [Moles/Vol] 138 mmol/L Normal 135-146 [facility] Comment on above: Performed By: #### 5 363, 7600, 00706 #### [facility] of [address], [address] [place] [address] Senior Electrical Design Engineer: Sherman Ken MD Urea nitrogen [Mass/Vol] 21 mg/dL Normal 7-25 [facility] Comment on above: Performed By: #### 5 363, 7600, 70737 #### [facility] of [address], [address] [place] [address] Senior Electrical Design Engineer: Sherman Ken MD LIPID PANEL, [facility] 10-1 Cholesterol [Mass/Vol] 182 mg/dL Normal <200 [facility] Comment on above: Performed By: #### 5 363, 7600, 70625 #### [facility] of [address], [address] [place] [address] Senior Electrical Design Engineer: Sherman Ken MD Cholesterol in HDL [Mass/Vol] 47 mg/dL Normal > OR = 40 [facility] Comment on above: Performed By: #### 5 363, 7600, 84782 #### [facility] of [address], [address] [place] [address] Senior Electrical Design Engineer: Sherman Ken MD Cholesterol in LDL [Mass/Vol] 117 mg/dL High [facility] Comment on above: Result Comment: Refe rence range: <100 Desirable range <100 mg/dL for primary prevention; <70 mg/dL for patients with CHD or diabetic patients with > or = 2 CHD risk factors. LDL-C is now calculated using the Viki calculation, which is a validated novel method providing better accuracy than the Friedewald equation in the estimation of LDL-C. Cr GALE et al. JAS. 2013;310(19): 7481-8244 (http://education.CityNews.Glisten/faq/KBS250) Performed By: #### 5 363, 7600, 99568 #### [facility] [address], [address] [place] [address] Senior Electrical Design Engineer: Sherman Ken MD Cholesterol.total/Chol esterol in HDL [Mass ratio] 3.9 {ratio} Normal <5.0 [facility] Comment on above: Performed By: #### 5 363, 7600, 64746 #### [facility] [address], [address] [place] [address] Senior Electrical Design Engineer: Sherman Ken MD NON HDL CHOLESTEROL 135 mg/dL (calc) High <130 [facility] Comment on above: Result Comment: For patients with diabetes plus 1 major ASCVD risk factor, treating to a non-HDL-C goal of <100 mg/dL (LDL-C of <70 mg/dL) is considered a therapeutic option. Performed By: #### 5 363, 7600, 28182 #### [facility] [address], [address] [place] [address] Senior Electrical Design Engineer: Sherman Ken MD Triglyceride [Mass/Vol] 85 mg/dL Normal <150 [facility] Comment on above: Performed By: #### 5 363, 7600, 28223 #### [facility] [place] [address] Senior Electrical Design Engineer: Sherman Ken MD PSA, TOTALon 12-10-2022 PSA, TOTAL 5.56 ng/mL High < OR = 4.00 [facility] Comment on above: Result Comment: The total PSA value from this assay system is standardized against the WHO standard. The test result will be approximately 20% lower when compared to the equimolar-standardized total PSA (Jacob Mccurtain). Comparison of serial PSA results should be interpreted with this fact in mind. This test was performed using the Siemens chemiluminescent method. Values obtained from different assay methods cannot be used interchangeably. PSA levels, regardless of value, should not be interpreted as absolute evidence of the presence or absence of disease. Performed By: #### 5 363, 7600, 27097 #### [facility] [address], [address] [place] [address] Senior Electrical Design Engineer: Sherman Ken MD Laboratory - Chemistry and C hemistry - challengeon 12-09-2022 Albumin [Mass/Vol] 4.1 g/dL Normal 3.6 - 5.1 g/dL [facility], [facility]. Albumin/Globulin [Mass ratio] 1.3 {ratio} Normal 1.0 - 2.5 [facility], [facility]. ALP [Catalytic activity/Vol] 101 U/L Normal 35 - 144 U/L [facility], [facility]. ALT [Catalytic activity/Vol] 14 U/L Normal 9 - 46 U/L [facility], [facility]. AST [Catalytic activity/Vol] 18 U/L Normal 10 - 35 U/L [facility].; [facility] [employer] [facility], [facility]. Bilirubin [Mass/Vol] 0.6 mg/dL Normal 0.2 - 1 .2 mg/dL [facility].; [facility], [facility]. Calcium [Mass/Vol] 9.5 mg/dL Normal 8.6 - 10. 3 mg/dL [facility].; [place] [employer] [facility], [facility]. Chloride [Moles/Vol] 100 mmol/L Normal 98 - 11 0 mmol/L [facility].; [place] [employer] [facility], [facility]. Cholesterol [Mass/Vol] 182 mg/dL Normal [facility]; [facility], [facility] Cholesterol in HDL [Mass/Vol] 47 mg/dL Normal [facility], [facility].; [facility], [facility]. Cholesterol in LDL [Mass/Vol] 117 mg/dL Abnormal [facility], [facility].; [place] [employer] [facility], [facility]. CO2 [Moles/Vol] 30 mmol/L Normal 20 - 32 mmol/L [facility].; [facility], [facility]. Creatinine [Mass/Vol] 1.02 mg/dL Normal 0.70 - 1.28 mg/dL [facility], [facility].; [place] [employer] [facility], [facility]. GFR/1.73 sq M.predicted among non-blacks MDRD (S/P/Bld) [Vol rate/Area] 79 mL/min/{1.73_m2} Normal [facility].; [place] [employer] [facility] Glucose [Mass/Vol] 102 mg/dL Abnormal 65 - 99 mg/dL [facility]; [place] [employer] [facility] Potassium [Moles/Vol] 4.7 mmol/L Normal 3.5 - 5.3 mmol/L [facility]; [place] [employer] [facility] Protein [Mass/Vol] 7.3 g/dL Normal 6.1 - 8.1 g/dL [facility]; [place] [employer] [facility] Sodium [Moles/Vol] 138 mmol/L Normal 135 - 146 mmol/L [facility]; [place] [employer] [facility] Triglyceride [Mass/Vol] 85 mg/dL Normal [facility]; [place] [employer] [facility] Urea nitrogen [Mass/Vol] 21 mg/dL Normal 7 - 25 mg/dL [facility]; [place] [employer] [facility] No Panel Informationon 12-09 BUN/CREATININE RATIO SEE NOTE: Normal [facility]; [place] [facility] CHOL/HDLC RATIO 3.9 Normal [facility]; [place] [employer] [facility] GLOBULIN 3.2 Normal 1.9 - 3.7 [facility]; [place] [employer] [facility] NON HDL CHOLESTEROL 135 Abnormal [facility]; [place] [employer] [facility] PSA, TOTAL 5.56 ng/mL Abnormal [facility]; [place] [employer] [facility] Laboratory - Chemistry and C hemistry - challengeon 03-30-2019 Albumin [Mass/Vol] 4.1 g/dL Normal 3.6 - 5.1 g/dL [facility]; [place] [employer] [facility] Albumin/Globulin [Mass ratio] 1.5 {ratio} Normal 1.0 - 2.5 [facility]; [place] [employer] [facility] ALP [Catalytic activity/Vol] 104 U/L Normal 35 - 144 U/L [facility].; [place] [facility] ALT [Catalytic activity/Vol] 14 U/L Normal 9 - 46 U/L [facility]; [facility] AST [Catalytic activity/Vol] 16 U/L Normal 10 - 35 U/L [facility], [facility].; [facility], [facility] Bilirubin [Mass/Vol] 0.7 mg/dL Normal 0.2 - 1 .2 mg/dL [facility], [facility].; [facility], [facility]. Calcium [Mass/Vol] 9.3 mg/dL Normal 8.6 - 10. 3 mg/dL [facility].; [facility], [facility]. Chloride [Moles/Vol] 103 mmol/L Normal 98 - 11 0 mmol/L [facility].; [facility], [facility] Cholesterol [Mass/Vol] 168 mg/dL Normal [facility]; [facility], [facility] Cholesterol in HDL [Mass/Vol] 50 mg/dL Normal [facility].; [facility], [facility] Cholesterol in LDL [Mass/Vol] 104 mg/dL Abnormal [facility]; [facility], [facility] CO2 [Moles/Vol] 28 mmol/L Normal 20 - 32 mmol/L [facility].; [facility], [facility] Creatinine [Mass/Vol] 0.95 mg/dL Normal 0.70 - 1.25 mg/dL [facility], [facility].; [facility], [facility]. GFR/1.73 sq M.predicted among blacks MDRD (S/P/Bld) [Vol rate/Area] 96 mL/min/{1.73_m2} Normal [facility], [facility].; [facility], [facility]. Glucose [Mass/Vol] 105 mg/dL Abnormal 65 - 99 mg/dL [facility], [facility].; [facility], [facility]. Potassium [Moles/Vol] 4.4 mmol/L Normal 3.5 - 5.3 mmol/L [facility], [facility].; [facility], [facility]. Protein [Mass/Vol] 6.9 g/dL Normal 6.1 - 8.1 g/dL [facility], [facility].; [facility], [facility]. Sodium [Moles/Vol] 138 mmol/L Normal 135 - 146 mmol/L [facility], [facility].; [facility], [facility]. Triglyceride [Mass/Vol] 59 mg/dL Normal [facility].; [employer]. Urea nitrogen [Mass/Vol] 14 mg/dL Normal 7 - 25 mg/dL [place] [employer] [facility].; [employer] No Panel Informationon 03-30 BUN/CREATININE RATIO NOT APPLICABLE Normal 6 - 22 [facility].; [employer] CHOL/HDLC RATIO 3.4 Normal [facility].; [employer]. eGFR NON-AFR. UZBEK 83 Normal [facility]; [place] [facility] GLOBULIN 2.8 Normal 1.9 - 3.7 [place] [employer] [facility]; [employer] NON HDL CHOLESTEROL 118 Normal [facility]; [employer]. PSA, TOTAL 2.9 ng/mL Normal [facility].; [employer]. Laboratory - Chemistry and C hemistry - challengeon 02-01-2013 Bilirubin Ql (U) Negative Normal [facility].; [employer]. Ketones Ql (U) Negative Normal [place] [employer] [facility].; [employer]. pH (U) 7.0 [pH] Normal [place] [employer] [facility].; [employer]. Specific gravity (U) [Rel density] 1.015 Normal [place] [employer] [facility].; [employer]. Laboratory - Hematology and Cell countson 02-01-2013 Hemoglobin Ql (U) Negative Normal [place] [employer] [facility] Hospital[facility].; [employer]. Laboratory - Specimen inform ationon 02-01-2013 Appearance (U) clear Normal [place] [employer].; [employer]. Color (U) yellow Normal [place] [employer] [facility].; [employer]. Laboratory - Urinalysison Glucose Test strip (U) [Mass/Vol] Negative Normal [place] [employer].; [employer]. Leukocyte esterase Test strip Ql (U) trace Normal [place] [employer].; [employer]. Nitrite Ql (U) Negative Normal [facility] [employer].; [employer]. Protein Ql (U) Negative Normal [facility].; [place] [facility] No Panel Informationon 02-01 UA - UROBILINOGEN .2 Normal [place] [employer] [facility].; [place] [employer] [facility]. Laboratory - Chemistry and C hemistry - challengeon 01-12-2013 Albumin [Mass/Vol] 4.6 g/dL Normal 3.6 - 5.1 g/dL [facility].; [place] [employer] [facility], [facility]. Albumin/Globulin [Mass ratio] 1.7 {ratio} Normal 1.0 - 2.5 [facility].; [place] [employer] [facility]. ALP [Catalytic activity/Vol] 88 U/L Normal 40 - 115 U/L [facility].; [place] [employer] [facility], [facility]. ALT [Catalytic activity/Vol] 18 U/L Normal 9 - 46 U/L [facility].; [place] [employer], [employer]. AST [Catalytic activity/Vol] 17 U/L Normal 10 - 35 U/L [facility].; [employer]. Bilirubin [Mass/Vol] 0.9 mg/dL Normal 0.2 - 1 .2 mg/dL [place] [employer] [facility].; [place] [employer]. Calcium [Mass/Vol] 9.5 mg/dL Normal 8.6 - 10. 3 mg/dL [facility].; [place] [employer] [facility], [facility]. Chloride [Moles/Vol] 101 mmol/L Normal 98 - 11 0 mmol/L [facility].; [place] [employer], [employer]. Cholesterol [Mass/Vol] 176 mg/dL Normal 125 - 200 mg/dL [facility].; [place] [employer], [facility]. Cholesterol in HDL [Mass/Vol] 52 mg/dL Normal [place] [employer] [facility].; [place] [employer], [employer]. Cholesterol in LDL [Mass/Vol] 108 mg/dL Normal [place] [employer] [facility].; [place] [employer], [employer]. Cholesterol non HDL [Mass/Vol] 124 mg/dL Normal [place] [employer] [facility], [facility].; [place] [employer], [employer]. Cholesterol.total/Chol esterol in HDL [Mass ratio] 3.4 {ratio} Normal [facility].; [employer]. CO2 [Moles/Vol] 29 mmol/L Normal 19 - 30 mmol/L [facility].; [facility], [facility]. Creatinine [Mass/Vol] 0.89 mg/dL Normal 0.70 - 1.25 mg/dL [facility], [facility].; [facility], [facility]. GFR/1.73 sq M.predicted among blacks MDRD (S/P/Bld) [Vol rate/Area] 108 {ML/MIN/1.73M2} Normal [facility].; [place] [employer] [facility], [facility]. GFR/1.73 sq M.predicted MDRD (S/P/Bld) [Vol rate/Area] 93 {ML/MIN/1.73M2} Normal [place] [employer] [facility], [facility].; [place] [employer] [facility], [facility]. Globulin (S) [Mass/Vol] 2.6 g/dL Normal 1.9 - 3.7 g/dL [facility], [facility].; [place] [employer] [facility], [facility]. Glucose [Mass/Vol] 100 mg/dL Abnormal 65 - 99 mg/dL [facility].; [employer] [facility]. Potassium [Moles/Vol] 4.3 mmol/L Normal 3.5 - 5.3 mmol/L [facility].; [place] [employer], [facility]. Protein [Mass/Vol] 7.2 g/dL Normal 6.1 - 8.1 g/dL [facility], [facility].; [place] [employer], [facility]. Sodium [Moles/Vol] 136 mmol/L Normal 135 - 146 mmol/L [facility].; [place] [employer], [facility]. Triglyceride [Mass/Vol] 78 mg/dL Normal [place] [employer] [facility].; [place] [employer], [facility]. Urea nitrogen [Mass/Vol] 21 mg/dL Normal 7 - 25 mg/dL [facility].; [place] [employer], [facility]. Urea nitrogen/Creatinine [Mass ratio] 23.1 mg/mg Abnormal 6 - 22 [facility].; [place] [employer], [facility]. Vital Signs Date Time Vital Sign Value Performing Clinician Facility 11-30-2024 12:12-0400 Body temperature 97.8 [degF] Dr. Ermelinda Tate MD Work Phone: [facility] 11-30-2024 12:12-0400 Diastolic blood pressure 105 mm[Hg] Dr. Ermelinda Tate MD Work Phone: [facility] 11-30-2024 12:12-0400 Heart rate 87 /min Dr. Ermelinda Tate MD Work Phone: [phone])[phone] [address] 11-30-2024 12:12-0400 Respiratory rate 16 /min Dr. Ermelinda Tate MD Work Phone: [phone](073)[phone] [place] [address] 11-30-2024 12:12-0400 SaO2% (BldA) [Mass fraction] 100 % Dr. Ermelinda Tate MD Work Phone: [phone])[phone] [place] [address] 11-30-2024 12:12-0400 Systolic blood pressure 164 mm[Hg] Dr. Ermelinda Tate MD Work Phone: [phone](668)[phone] [place] [address] 11-30-2024 08:00-0400 Body mass index (BMI) [Ratio] 37 kg/m2 Dr. Ermelinda Tate MD Work Phone: [phone])335-491891 [address] 11-30-2024 08:00-0400 Body weight [address] Ermelinda Tate MD Work Phone: [phone])[phone] [address] 11-30-2024 07:54-0400 Body height 177.[address] Ermelinda Tate MD Work Phone: [phone](806)[phone] [place] [address] 11-18-2024 09:36-0400 Body height 177.[address] Ermelinda Tate MD Work Phone: [facility] 11-18-2024 09:36-0400 Body mass index (BMI) [Ratio] 36.8 kg/m2 Dr. Ermelinda Tate MD Work Phone: [phone])[phone] [place] [address] 11-18-2024 09:36-0400 Body temperature 98.1 [degF] Dr. Ermleinda Tate MD Work Phone: [phone])[phone] [place] [address] 11-18-2024 09:36-0400 Body weight 116.[address] Ermelinda Tate MD Work Phone: [facility] 11-18-2024 09:36-0400 Diastolic blood pressure 89 mm[Hg] Dr. Ermelinda Tate MD Work Phone: [facility] 11-18-2024 09:36-0400 Heart rate 83 /min Dr. Ermelinda Tate MD Work Phone: 7([phone])[phone] [place] [address] 11-18-2024 09:36-0400 Respiratory rate 18 /min Dr. Ermelinda Tate MD Work Phone: 1(628)[phone] [place] [address] 11-18-2024 09:36-0400 SaO2% (BldA) [Mass fraction] 94 % Dr. Ermelinda Tate MD Work Phone: [phone])[phone] [place] [address] 11-18-2024 09:36-0400 Systolic blood pressure 179 mm[Hg] Dr. Ermelinda Tate MD Work Phone: [facility] 11-08-2024 14:09-0400 Body height 177.[address] Ermelinda Tate MD Work Phone: [phone])[phone] [place] [address] 11-08-2024 14:02-0400 Body mass index (BMI) [Ratio] 36.6 kg/m2 Dr. Ermelinda Tate MD Work Phone: [facility] 11-08-2024 14:02-0400 Body temperature 99 [degF] Dr. Ermelinda Tate MD Work Phone: [facility] 11-08-2024 14:02-0400 Body weight 115.[address] Ermelinda Tate MD Work Phone: [facility] 11-08-2024 14:02-0400 Diastolic blood pressure 97 mm[Hg] Dr. Ermelinda Tate MD Work Phone: [facility] 11-08-2024 14:02-0400 Heart rate 93 /min Dr. Ermelinda Tate MD Work Phone: [facility] 11-08-2024 14:02-0400 Respiratory rate 18 /min Dr. Ermelinda Tate MD Work Phone: [facility] 11-08-2024 14:02-0400 SaO2% (BldA) [Mass fraction] 93 % Dr. Ermelinda Tate MD Work Phone: [facility] 11-08-2024 14:02-0400 Systolic blood pressure 166 mm[Hg] Dr. Ermelinda Tate MD Work Phone: [facility] 06-16-2023 07:48-0400 Body height 176.53 cm [facility] Lan [facility], [facility].; [facility], [facility]. 06-16-2023 07:48-0400 Body mass index (BMI) [Ratio] 36.68 kg/m2 [facility], [facility].; [facility], [facility]. 06-16-2023 07:48-0400 Body surface area Derived from formula 2.29 m2 [facility], [facility].; [facility], [facility]. 06-16-2023 07:48-0400 Body weight 114.31 kg [facility].; [place] [employer] [facility], [facility]. 06-16-2023 07:48-0400 Diastolic blood pressure 88 mm[Hg] [facility].; [place] [employer] [facility] Hospital[facility]. Comment on above: Patient Position: Sitting; Cuff Location : Left Arm; Cuff Size: Large 06-16-2023 07:48-0400 Heart rate 96 /min [facility], [facility].; [place] [employer] [facility], [employer]. Comment on above: Pattern: Regular 06-16-2023 07:48-0400 Systolic blood pressure 124 mm[Hg] [facility], [facility].; [employer], [employer]. Comment on above: Patient Position: Sitting; Cuff Location : Left Arm; Cuff Size: Large 02-26-2023 09:38-0500 Body height 176.53 cm Austin Chamberlain MD Work Phone: [employer]. 02-26-2023 09:38-0500 Body mass index (BMI) [Ratio] 35.66 kg/m2 Austin Chamberlain MD Work Phone: [employer].; [employer] 02-26-2023 09:38-0500 Body surface area Derived from formula 2.26 m2 Austin Chamberlain MD Work Phone: [employer].; [employer]. 02-26-2023 09:38-0500 Body weight 111.13 kg Austin Chamberlain MD Work Phone: [employer].; [employer]. 02-26-2023 09:38-0500 Diastolic blood pressure 84 mm[Hg] Austin Chamberlain MD Work Phone: [employer].; [employer]. Comment on above: Patient Position: Sitting; Cuff Location : Left Arm; Cuff Size: Standard 02-26-2023 09:38-0500 Heart rate 102 /min Austin Chamberlain MD Work Phone: [employer].; [employer]. Comment on above: Pattern: Regular 02-26-2023 09:38-0500 Systolic blood pressure 133 mm[Hg] Austin Chamberlain MD Work Phone: [employer].; [employer]. Comment on above: Patient Position: Sitting; Cuff Location : Left Arm; Cuff Size: Standard 01-29-2023 10:32-0500 Body height 176.53 cm Sri Richey LPN [place] [employer] [facility].; [employer]. 01-29-2023 10:32-0500 Body mass index (BMI) [Ratio] 35.66 kg/m2 Sri Richey LPN [employer] [facility].; [employer]. 01-29-2023 10:32-0500 Body surface area Derived from formula 2.[address] [facility], [facility].; [place] [employer] [facility] 01-29-2023 10:32-0500 Body weight 111.13 kg Sri Cheatham Rossi CLINICAL DATA ANALYST [facility], [facility].; [employer] 01-29-2023 10:32-0500 Diastolic blood pressure 100 mm[Hg] Sri Cheatham Ross[facility].; [employer]. Comment on above: Patient Position: Sitting; Cuff Location : Left Arm; Cuff Size: Standard 01-29-2023 10:32-0500 Heart rate 97 /min Sri Cheatham Rossi [facility], [facility].; [employer]. Comment on above: Pattern: Regular 01-29-2023 10:32-0500 Systolic blood pressure 165 mm[Hg] Sri Cheatham Rossi [facility].; [employer]. Comment on above: Patient Position: Sitting; Cuff Location : Left Arm; Cuff Size: Standard 12-15-2022 14:10-0400 Body height 176.53 cm Austin Chamberlain MD Work Phone: [place] [employer] [facility].; [employer]. 12-15-2022 14:10-0400 Body mass index (BMI) [Ratio] 34.93 kg/m2 Austin Chamberlain MD Work Phone: [place] [employer] [facility].; [employer]. 12-15-2022 14:10-0400 Body surface area Derived from formula 2.24 m2 Austin Chamberlain MD Work Phone: [place] [employer] [facility].; [employer]. 12-15-2022 14:10-0400 Body weight 108.86 kg Austin Chamberlain MD Work Phone: [place] [employer].; [employer]. 12-15-2022 14:10-0400 Diastolic blood pressure 87 mm[Hg] Austin Chamberlain MD Work Phone: [place] [employer] [facility].; [employer]. Comment on above: Patient Position: Sitting; Cuff Location : Left Arm; Cuff Size: Standard 12-15-2022 14:10-0400 Heart rate 109 /min Austin Chamberlain MD Work Phone: [place] [employer] [facility].; [employer]. Comment on above: Pattern: Regular 12-15-2022 14:10-0400 Systolic blood pressure 131 mm[Hg] Austin Chamberlain MD Work Phone: [place] [employer].; [employer]. Comment on above: Patient Position: Sitting; Cuff Location : Left Arm; Cuff Size: Standard 12-15-2022 11:43-0400 Body height 176.53 cm Génesis Montenegro [facility] [employer] [facility].; [place] [employer]. 08-27-2022 07:08-0400 Body height 176.53 cm Austin Chamberlain MD Work Phone: [employer] 08-27-2022 07:08-0400 Body mass index (BMI) [Ratio] 33.91 kg/m2 Austin Chamberlain MD Work Phone: [employer].; [employer] 08-27-2022 07:08-0400 Body surface area Derived from formula 2.22 m2 Austin Chamberlain MD Work Phone: [employer].; [employer]. 08-27-2022 07:08-0400 Body weight 105.69 kg Austin Chamberlain MD Work Phone: [employer].; [employer] 08-27-2022 07:08-0400 Diastolic blood pressure 97 mm[Hg] Austin Chamberlain MD Work Phone: [employer].; [employer]. Comment on above: Patient Position: Sitting; Cuff Location : Left Arm; Cuff Size: Standard 08-27-2022 07:08-0400 Heart rate 99 /min Austin Chamberlain MD Work Phone: [employer].; [employer]. Comment on above: Pattern: Regular 08-27-2022 07:08-0400 Systolic blood pressure 135 mm[Hg] Austin Chamberlain MD Work Phone: [facility].; [facility]. Comment on above: Patient Position: Sitting; Cuff Location : Left Arm; Cuff Size: Standard 05-27-2022 15:53-0400 Body height 176.53 cm Gé[address] Montenegro [facility], [facility].; [facility]. 05-27-2022 15:53-0400 Body mass index (BMI) [Ratio] 33.77 kg/m2 Clarisse Lan [facility], [facility].; [facility]. 05-27-2022 15:53-0400 Body surface area Derived from formula 2.[address] [facility], [facility].; [place] [employer] [facility]. 05-27-2022 15:53-0400 Body weight 105.24 kg Clarisse Stuckey [facility].; [place] [employer] [facility]. 05-27-2022 15:53-0400 Diastolic blood pressure 98 mm[Hg] Génesis Montenegro [facility] [place] [employer] [facility]. Comment on above: Patient Position: Sitting; Cuff Location : Left Arm; Cuff Size: Large 05-27-2022 15:53-0400 Heart rate 98 /min ClarisseLeisa Montenegro [facility], [facility].; [place] [employer] [facility]. Comment on above: Pattern: Regular 05-27-2022 15:53-0400 Inhaled oxygen concentration 20 % Génesis Montenegro [facility], [facility].; [place] [employer] [facility]. Comment on above: Room air 05-27-2022 15:53-0400 Inhaled oxygen concentration 21 % Clarisse Stuckey [facility], [facility].; [place] [employer] [facility]. Comment on above: Room air 05-27-2022 15:53-0400 SaO2% (BldA) [Mass fraction] 96 % Génesis Montenegro [facility], [employer]. 05-27-2022 15:53-0400 Systolic blood pressure 149 mm[Hg] Clarisse Lan GRIFFIN [employer]. Comment on above: Patient Position: Sitting; Cuff Location : Left Arm; Cuff Size: Large 03-30-2019 07:44-0500 Body height 176.53 cm Austin Chamberlain MD Work Phone: [employer]. 03-30-2019 07:44-0500 Body mass index (BMI) [Ratio] 32.02 kg/m2 Austin Chamberlain MD Work Phone: [employer]. 03-30-2019 07:44-0500 Body surface area Derived from formula 2.16 m2 Austin Chamberlain MD Work Phone: [employer]. 03-30-2019 07:44-0500 Body weight 99.79 kg Austin Chamberlain MD Work Phone: [employer]. 03-30-2019 07:44-0500 Diastolic blood pressure 104 mm[Hg] Austin Chamberlain MD Work Phone: [employer]. Comment on above: Patient Position: Sitting; Cuff Location : Left Arm; Cuff Size: Large 03-30-2019 07:44-0500 Heart rate 89 /min Austin Chamberlain MD Work Phone: [employer]. Comment on above: Pattern: Regular 03-30-2019 07:44-0500 Systolic blood pressure 168 mm[Hg] Austin Chamberlain MD Work Phone: [employer]. Comment on above: Patient Position: Sitting; Cuff Location : Left Arm; Cuff Size: Large 11-03-2018 15:02-0400 Body height 176.53 cm Allyson Keene LPN [employer]. 11-03-2018 15:02-0400 Body mass index (BMI) [Ratio] 32.17 kg/m2 Allyson Freemanlaura GRIFFIN [employer] 11-03-2018 15:02-0400 Body surface area Derived from formula 2.17 m2 Allyson Freemanluara GRIFFIN [employer] 11-03-2018 15:02-0400 Body weight 100.25 kg Allyson Freemanlaura GRIFFIN [employer]. 11-03-2018 15:02-0400 Diastolic blood pressure 82 mm[Hg] Allyson Carmonahaily [facility].; [employer]. Comment on above: Patient Position: Sitting; Cuff Location : Left Arm; Cuff Size: Standard 11-03-2018 15:02-0400 Heart rate 120 /min Allyson Freemanlaura GRIFFIN [employer]. Comment on above: Pattern: Regular 11-03-2018 15:02-0400 Systolic blood pressure 106 mm[Hg] Allyson Carmonahaily GRIFFIN [employer]. Comment on above: Patient Position: Sitting; Cuff Location : Left Arm; Cuff Size: Standard 11-07-2015 16:50-0400 Body height 176.53 cm Austin Chamberlain MD Work Phone: [employer] 11-07-2015 16:50-0400 Body mass index (BMI) [Ratio] 31.59 kg/m2 Austin Chamberlain MD Work Phone: [employer]. 11-07-2015 16:50-0400 Body surface area Derived from formula 2.15 m2 Austin Chamberlain MD Work Phone: [employer]. 11-07-2015 16:50-0400 Body weight 98.43 kg Austin Chamberlain MD Work Phone: [employer]. 11-07-2015 16:50-0400 Diastolic blood pressure 104 mm[Hg] Austin Chamberlain MD Work Phone: [facility].; [employer]. Comment on above: Patient Position: Sitting; Cuff Location : Left Arm; Cuff Size: Standard 11-07-2015 16:50-0400 Heart rate 91 /min Austin Chamberlain MD Work Phone: [facility].; [employer]. Comment on above: Pattern: Regular 11-07-2015 16:50-0400 Systolic blood pressure 141 mm[Hg] Austin Chamberlain MD Work Phone: [facility], [employer]. Comment on above: Patient Position: Sitting; Cuff Location : Left Arm; Cuff Size: Standard 11-14-2014 11:54-0400 Body height 176.[address] [facility], Inc.; [employer] 11-14-2014 11:54-0400 Body mass index (BMI) [Ratio] 31.15 kg/m2 Clarisse Lan [facility], Inc.; [employer] 11-14-2014 11:54-0400 Body surface area Derived from formula 2.14 m2 [facility] La Dolores [facility], Inc.; [employer] 11-14-2014 11:54-0400 Body weight 97.07 kg [facility] La Dolores [facility], Inc.; [employer] 11-14-2014 11:54-0400 Diastolic blood pressure 86 mm[Hg] Clarisse La Dolores [facility], Inc.; [employer]. Comment on above: Patient Position: Sitting; Cuff Location : Left Arm; Cuff Size: Large 11-14-2014 11:54-0400 Heart rate 103 /min ClarisseLeisa Montenegro [facility], Inc.; [employer]. Comment on above: Pattern: Regular 11-14-2014 11:54-0400 Systolic blood pressure 123 mm[Hg] Clarisse Lan CLINICAL DATA ANALYST [employer]. Comment on above: Patient Position: Sitting; Cuff Location : Left Arm; Cuff Size: Large 03-10-2014 07:55-0500 Body height 176.53 cm Austin Chamberlain MD Work Phone: [employer]. 03-10-2014 07:55-0500 Body mass index (BMI) [Ratio] 31.88 kg/m2 Austin Chamberlain MD Work Phone: [employer]. 03-10-2014 07:55-0500 Body surface area Derived from formula 2.16 m2 Austin Chamberlain MD Work Phone: [employer]. 03-10-2014 07:55-0500 Body weight 99.34 kg Austin Chamberlain MD Work Phone: [employer]. 03-10-2014 07:55-0500 Diastolic blood pressure 76 mm[Hg] Austin Chamberlain MD Work Phone: [employer]. Comment on above: Patient Position: Sitting; Cuff Location : Left Arm; Cuff Size: Large 03-10-2014 07:55-0500 Heart rate 87 /min Austin Chamberlain MD Work Phone: [employer]. Comment on above: Pattern: Regular 03-10-2014 07:55-0500 Systolic blood pressure 126 mm[Hg] Austin Chamberlain MD Work Phone: [employer]. Comment on above: Patient Position: Sitting; Cuff Location : Left Arm; Cuff Size: Large 09-12-2013 08:10-0400 Body weight 99.34 kg Eli Christianson LPN [employer]. 09-12-2013 08:10-0400 Diastolic blood pressure 92 mm[Hg] Eli Christianson LPN [employer]. Comment on above: Patient Position: Sitting; Cuff Location : Left Arm; Cuff Size: Standard 09-12-2013 08:10-0400 Heart rate 59 /min Eli Christianson LPN [employer]. Comment on above: Pattern: Regular 09-12-2013 08:10-0400 Systolic blood pressure 141 mm[Hg] Eli Christianson LPN [employer]. Comment on above: Patient Position: Sitting; Cuff Location : Left Arm; Cuff Size: Standard 02-01-2013 15:06-0500 Body height 176.53 cm Austin Chamberlain MD Work Phone: [employer]. 02-01-2013 15:06-0500 Body mass index (BMI) [Ratio] 33.19 kg/m2 Austin Chamberlain MD Work Phone: [employer]. 02-01-2013 15:06-0500 Body surface area Derived from formula 2.2 m2 Austin Chamberlain MD Work Phone: [employer]. 02-01-2013 15:06-0500 Body weight 103.42 kg Austin Chamberlain MD Work Phone: [employer]. 02-01-2013 15:06-0500 Diastolic blood pressure 90 mm[Hg] Austin Chamberlain MD Work Phone: [employer]. Comment on above: Patient Position: Sitting; Cuff Location : Left Arm; Cuff Size: Standard 02-01-2013 15:06-0500 Heart rate 109 /min Austin Chamberlain MD Work Phone: [employer].; [employer]. Comment on above: Pattern: Regular 02-01-2013 15:06-0500 Systolic blood pressure 128 mm[Hg] Austin Chamberlain MD Work Phone: [employer]. Comment on above: Patient Position: Sitting; Cuff Location : Left Arm; Cuff Size: Standard 02-20-2012 08:09-0500 Body temperature 98.1 [degF] Eli Christianson [facility], Inc.; [employer] 02-20-2012 08:09-0500 Body weight 104.[address] [facility], Inc.; [employer], [employer]. 02-20-2012 08:09-0500 Diastolic blood pressure 106 mm[Hg] Elimaureen Christianson [facility], Inc.; [employer]. Comment on above: Patient Position: Sitting; Cuff Location : Left Arm; Cuff Size: Standard 02-20-2012 08:09-0500 Heart rate 83 /min Eli Chow Sammy [facility], Inc.; [employer] Comment on above: Pattern: Regular 02-20-2012 08:09-0500 Systolic blood pressure 158 mm[Hg] Eli Chow Sammy [facility], [facility].; [employer], [employer]. Comment on above: Patient Position: Sitting; Cuff Location : Left Arm; Cuff Size: Standard 05-07-2011 11:34-0400 Body height 177.8 [address] Gé[address]is Montenegro [facility], Inc.; [employer], [employer]. 05-07-2011 11:34-0400 Body mass index (BMI) [Ratio] 31.85 kg/m2 [facility] Lan [facility] Inc.; [employer], [employer]. 05-07-2011 11:34-0400 Body surface area Derived from formula 2.18 m2 [facility] [place] [employer] [facility], Inc.; [employer], [employer]. 05-07-2011 11:34-0400 Body temperature 97.4 [degF] [facility] [place] [employer] [facility], Inc.; [employer]. Comment on above: Method: Tympanic 05-07-2011 11:34-0400 Body weight 100.7 [address] Monteneg[address] [facility], Inc.; [employer] 05-06-2011 16:45-0400 Body weight 100.7 kg Sri Richey CLINICAL DATA ANALYST [facility], [employer].; [place] [employer] [facility]. 05-06-2011 16:45-0400 Diastolic blood pressure 91 mm[Hg] Sri Cheatham Rossi CLINICAL DATA ANALYST [facility], [employer].; [facility], [employer]. Comment on above: Patient Position: Sitting; Cuff Location : Left Arm; Cuff Size: Standard 05-06-2011 16:45-0400 Heart rate 107 /min Sri M Rossiravindra GRIFFIN [facility], Inc.; [employer]. Comment on above: Pattern: Regular 05-06-2011 16:45-0400 Systolic blood pressure 135 mm[Hg] Sri Cheatham Rossi NORIEGAN [facility], [employer].; [facility], [employer]. Comment on above: Patient Position: Sitting; Cuff Location : Left Arm; Cuff Size: Standard Encounters Encounter Date Encounter Type Care Provider Facility Start: 12-21-2024 ambulatory [facility] Facility: [facility] Start: 12-16-2024 ambulatory Damion Walter [facility] Start: 11-30-2024 End: 11-30-2024 Emergency department patient visit Dr. Ermelinda Tate MD Work Phone: -Emergency Department Work Phone: Start: 11-18-2024 End: 11-18-[address] Arvind Zuluaga DO [facility] Work Phone: Start: 11-18-2024 End: 11-18-[address] Ermelinda Tate MD Work Phone: -[facility] Start: 11-15-[address] Arvind Luna on DO -Radiation Oncology Start: 11-15-2024 ambulatory Arvind Margareth Facility: [facility] Start: 11-08-2024 End: 11-08-[address] Arvind Zuluaga [facility] Work Phone: Start: 11-08-2024 End: 11-08-[address] Ermelinda Tate MD Work Phone: [facility] Start: 10-19-2024 End: 10-19-2024 ambulatory ARVIND K MIREYA [facility] Start: 10-18-2024 ambulatory BRANDEN MADERA MD Fa cility:A Start: 07-04-2024 End: 07-04-2024 ambulatory ERMELINDA TATE [facility] Start: 06-27-2024 End: 06-27-2024 ambulatory Damion Chaseano Facility:[facility] Start: 06-23-2024 ambulatory Ermelinda [facility] Facility: [facility] Start: 05-31-2024 End: 05-31-2024 ambulatory [facility]INDA [facility] Start: 05-30-2024 End: 05-30-[address] Ermelinda Tate MD Work Phone: [facility] Work Phone: Start: 05-30-2024 End: 05-30-[address] Damion Walter MD -Laboratory, Specimen Work Phone: Start: 05-30-2024 End: 05-30-2024 ambulatory Damion Walter Facility:[facility] Start: 05-10-2024 End: 05-10-2024 [facility]ulatory [facility] Start: 05-03-2024 End: 05-03-[address] Ermelinda Tate MD Work Phone: [facility] Work Phone: Start: 05-03-2024 End: 05-03-2024 Patient encounter procedure Milagro Mckeon -Laboratory Work Phone: Start: 05-03-2024 End: 05-03-2024 [facility] Start: 04-12-2024 End: 04-12-[address] [facility] Start: 12-24-2023 End: 12-24-2023 ambulatory ERMELINDA THOMPSONLidia [facility] Start: 12-11-2023 End: 12-11-[address] [facility] Start: 12-11-[address] [facility] Start: 10-23-2023 End: 10-23-2023 ambulatory SANTOS LENNON DENISE [facility] Start: 06-16-2023 End: 06-16-2023 Office outpatient visit 15 minutes Austin Chamberlain MD Work Phone: [employer] Start: 03-24-2023 End: 03-24-2023 Telephone follow-up Austin Chamberlain MD Work Phone: [employer]. Start: 02-26-2023 End: 02-26-2023 Office outpatient visit 15 minutes Austin Chamberlain MD Work Phone: [employer]. Start: 02-26-2023 Follow-up encounter Austin chambers MD Work Phone: [employer]. Start: 01-29-2023 End: 01-29-2023 Office outpatient visit 15 minutes Austin Chamberlain MD Work Phone: [employer]. Start: 12-15-2022 End: 12-15-2022 Periodic preventive med est patient 65yrs& older Austin Chamberlain MD Work Phone: [employer]. Start: 12-09-2022 End: 12-09-2022 Orders Austin Chamberlain MD Work Phone: [employer]. Start: 12-08-2022 End: 12-08-2022 Orders Austin Chamberlain MD Work Phone: [employer]. Start: 11-10-2022 End: 11-10-2022 Orders Austin Chamberlain MD Work Phone: [employer]. Start: 11-05-2022 End: 11-05-2022 Orders Austin Chamberlain MD Work Phone: [employer]. Start: 08-27-2022 End: 08-27-2022 Office outpatient visit 15 minutes Austin Chamberlain MD Work Phone: [facility] Start: 05-27-2022 End: 05-27-2022 Office outpatient visit 15 minutes Austin Chamberlain MD Work Phone: [employer]. Start: 03-30-2019 End: 03-30-2019 Medication Austin Chamberlain MD Work Phone: [employer]. Start: 03-30-2019 End: 03-30-2019 Office outpatient visit 15 minutes Austin Chamberlain MD Work Phone: [facility] Start: 11-03-2018 End: 11-03-2018 Office outpatient new 20 minutes Austin Chamberlain MD Work Phone: [facility] Start: 11-07-2015 End: 11-07-2015 Patient encounter procedure Austin Chamberlain MD Work Phone: [facility] Start: 11-14-2014 End: 11-14-2014 Office outpatient visit 15 minutes Austin Chamberlain MD Work Phone: [facility] Start: 03-10-2014 End: 03-10-2014 Patient encounter procedure Austin Chamberlain MD Work Phone: [employer]. Start: 09-12-2013 End: 09-12-2013 Office outpatient visit 15 minutes Austin Chamberlain MD Work Phone: [facility] Start: 02-01-2013 End: 02-01-2013 Patient encounter procedure Austin Chamberlain MD Work Phone: [employer]. Start: 01-17-2013 End: 01-17-2013 Historical Summary Austin Chamberlain MD Work Phone: [employer]. Start: 01-12-2013 End: 01-12-2013 Orders Austin Chamberlain MD Work Phone: [employer]. Start: 12-31-2012 End: 12-31-2012 Orders Austin Chamberlain MD Work Phone: [employer]. Start: 02-20-2012 End: 02-20-2012 Patient encounter procedure Austin Chamberlain MD Work [facility]: [facility] Start: 05-07-2011 End: 05-07-2011 Patient encounter procedure Austin Chamberlain MD Work Phone: [facility] Start: 05-06-2011 End: 05-07-2011 Patient encounter procedure Austin Chamberlain MD Work Phone: [facility] Procedures Date Procedure Procedure Detail Performing Clinician Start: 11-30-2024 Urnls dip stick/tabl et reagent auto microscopy Dr. Ermelinda Tate MD Work Phone: Start: 11-30-[address] Ermelinda Tate MD Work Phone: Start: 11-15-2024 Positron emission tomography with computed tomography Dr. Ermelinda Tate MD Work Phone: Start: 10-19-2024 PSA screening ERMELINDA WALSH Comment on above: Performed By: #### [id number] #### [facility],[address] [place] [address] Start: 12-15-2022 End: 12-15-2022 Adv care pln/ no alt dcsn mkr docd or refusal Austin Chamberlain MD Work Phone: Start: 12-15-2022 End: 12-15-2022 Depression screening Austin Chamberlain MD Work Phone: Start: 12-15-2022 End: 12-15-2022 Falls risk assessment documented Austin Chamberlain MD Work Phone: Start: 12-15-2022 End: 12-15-2022 Pos clin depres scrn f/u doc Austin Chamberlain MD Work Phone: Start: 12-15-2022 End: 12-15-2022 PPPS, subseq visit Austin Chamberlain MD Work Phone: Start: 12-15-2022 End: 12-15-2022 Pt falls assess docd w/o fall/injury past year Austin Chamberlain MD Work Phone: Start: 12-09-2022 End: 12-09-2022 Lab findings surveillance Génesis comer CLINICAL DATA ANALYST Comment on above: 102 Start: 12-09-2022 End: 12-09-2022 Lipid panel results documented & reviewed Génesis Montenegro CLINICAL DATA ANALYST Start: 12-09-2022 End: 12-09-2022 Prostate specific antigen measurement Génesis Montenegro CLINICAL DATA ANALYST Comment on above: 5.56 Start: 11-10-2022 End: 11-12-2022 Myocardial spect multiple studies Austin Chamberlain MD Work Phone: Comment on above: Clinical Indications : Chest pain, chronic, low-mod prob of CAD Start: 11-07-2015 End: 11-09-2015 Radex ribs uni w/posteroant ch minimum 3 views Santino Black [employer] Work Phone: Plan of Treatment Date Care Activity Detail Author Start: 11-30-2024 [facility] Start: 11-08-2024 Positron emission tomography with computed tomography [facility] Start: 12-21-2023 Patient encounter procedure Medical; PHYSICAL - AWV [employer] Start: 21-Dec-2023 09:50-04:00 MD Austin Chamberlain Appointment Request [employer]. Start: 12-14-2023 Nursing evaluation o f patient and report Medical; Nurse visit - fasting labs - SFB [employer]. Start: 14-Dec-2023 08:40-04:00 NURSEMARIANN Appointment Request [employer]. Start: 06-16-2023 Assay of prostate specific antigen total PSA TOTAL (PROSTATE SPECIFIC ANTIGEN) ([id number]) Start: 16-Jun-2023 09:00-04:00 Request [employer] Start: 06-16-2023 Patient encounter procedure Medical; RTN OFFICE VISIT - 6 mo f/u [employer]. Start: 16-Jun-2023 8:50 MD Austin Chamberlain Appointment Request [employer]. Start: 06-11-2023 Nursing evaluation o f patient and report Medical; Nurse visit - fasting labs - SFB [employer]. Start: 11-Jun-2023 8:20 NURSE, FLOAT Appointment [facility] Start: 06-08-2023 Assay of prostate specific antigen total PSA TOTAL (PROSTATE SPECIFIC ANTIGEN) ([id number]) Start: 08-Jun-2023 [facility]; [facility] [employer] Start: 12-15-2022 End: 02-25-2023 Oncology colorectal screening lizbet 10 dna markrs [facility].; [facility] Patient Education ED High Blood Pressure Hypertension [facility] Work Phone: Immunizations Immunization Date Immunization Notes Care Provider Edmar riddle 05-18-2008 tetanus toxoid, redu jo diphtheria toxoid, and acellular pertussis vaccine, adsorbed Austin Chamberlain MD Work Phone: [facility]; [facility] Payers Date Payer Category Payer Medicare [id number] 2024 Self-pay 1950 Unknown [id number] 1950 Unknown [id number] [id number] 1950 Unknown [id number] [id number] 1950 Unknown [id number] [id number] 1950 Unknown [id number] 2.16.840.1.528343.3.579.2.651 1952 Unknown [id number] 2.16.840.1.858099.3.579.2.651 1952 Unknown [id number] 2.16.840.1.519820.3.579.2.651 1952 Unknown [id number] 2.16.840.1.080395.3.579.2.651 1952 Unknown [id number] 2.16.840.1.656835.3.579.2.651 1952 Unknown [id number] 2.16.840.1.390550.3.579.2.651 Unknown [employer] Unknown [id number] [id number] Unknown [id number] [id number] Unknown [id number] 2.16.840.1.187532.3.579.2.462 Unknown [id number] 2.16.840.1.503700.3.579.2.462 Unknown [id number] 2.16.840.1.933029.3.579.2.462 Unknown [id number] 2.16.840.1.967638.3.579.2.462 Unknown [id number] 2.16.840.1.194645.3.579.2.462 Unknown [id number] 2.16.840.1.462261.3.579.2.462 Unknown [id number] 2.16.840.1.453072.3.579.2.462 Unknown [id number] [id number] Social History Date Type Detail Facility Alcohol Use Alcohol Use [facility] Tobacco Use: Tobacco Use: ; F ormer smoker. [facility], [facility] Start: 1950 Male [facility] Start: 06-23-2024 End: 11-30-2024 Ex-smoker [facility] Tobacco smoking stat [facility] Unknown if ever smoked [facility] Work Phone: Start: 05-13-2024 End: 06-02-2024 Sex Male (finding) [facility] Sex Male [facility] Mental Status Date Assessment Result Facility 11-30-2024 Cognitive function Level Of Consciousness Awake [facility] Work Phone: Discharge summary 11-30-2024 Note Date & Type Note Facility 11-30-2024 Discharge summary [facility] Progress note 11-18-2024 Note Date & Type Note Facility 11-18-2024 Progress note [facility] Evaluation note 11-08-2024 Note Date & Type Note Facility 11-08-2024 Evaluation note Diagnosis Onset Date Resolution Cancer of prostate with intermediate recurrence risk (stage T2b-c or Gleaso acute November 08, 2024 1:14pm [facility] Work Phone: Evaluation note 11-08-2024 Note Date & Type Note Facility 11-08-2024 Evaluation note Diagnosis Onset Date Resolution Cancer of prostate with intermediate recurrence risk (stage T2b-c or Gleaso acute November 08, 2024 1:14pm Cancer of prostate with intermediate recurrence risk (stage T2b-c or Gleaso acute November 18, 2024 9:32am [facility] Work Phone: Progress note 11-08-2024 Note Date & Type Note Facility 11-08-2024 Progress note [facility] Progress note 11-08-2024 Note Date & Type Note Facility 11-08-2024 Progress note Note Date/Time November 08, 2024 3:07pm [facility] [address] [address] OFFICE VISIT Date of Service: 11/08/24 1342 MR#: [id number] Acct: [id number] Name: RAMOS TRAN Arpit Rep #: [id number] : 1950 From: Arvind chambers DO Age/Sex: 74/M [place] [facility] [place]: Signed Intake Vital Signs 06/27/24 13:59 11/08/24 14:02 11/08/24 14:09 Height 5 ft 10 in 5 ft 10 in 5 ft 10 in Weight: 264 lb 1 oz 255 lb BMI 37.8 36.6 BP 119/71 166/97 H Blood Pressure Location Lt brachial Rt brachial Position Sitting Sitting Respiration 18 18 Pulse 94 93 Pulse Source Monitor Monitor Temp 98.5 F 99.0 F Temperature Source Temporal Artery Temporal Artery Pulse Oximetry (%) 94 93 Oxygen Delivery Method room air room air Intake Is patient in pain?: No Allergies No Known Allergies Allergy (Verified 11/08/24 13:58) Medications ?Medication ?Instructions ?Recorded ?Confirmed ?Type amlodipine 5 mg tablet 5 mg PO QDAY 06/23/24 History losartan 50 mg-hydrochlorothiazide 1 tab PO QDAY 06/2311/08/24 History 12.5 mg tablet tamsulosin 0.4 mg capsule 0.4 mg PO QDAY 06/23/2410/24 History Have you fallen in the past year?: No PFSH PFSH Medical History Eyelid abnormality BPH (benign prostatic hyperplasia) Nocturia Elevated PSA Urinary incontinence Hypertension Prostate cancer Home Medications ?Medication ?Instructions ?Recorded ?Last Taken ?Type amlodipine 5 mg tablet 5 mg PO QDAY 06/23/24 Unknow n History losartan 50 mg-hydrochlorothiazide 1 tab PO QDAY 06/23 Unknown History 12.5 mg tablet tamsulosin 0.4 mg capsule 0.4 mg PO QDAY 06/23/24 Unkn own History Allergy/AdvReac Type Severity Reaction Status Date / Time No Known Allergies Allergy Verified 11/08/24 13:58 Family History Father Cancer skin Brother Heart problem Surgical History Hx of prostate biopsy Hx of hernia repair Hx of cataract extraction Social History Smoking Status: Former smoker alcohol intake: never Diagnosis: Ramos Tran is a 74 year-old male diagnosed with 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 History of Present Illness: 05/30/2024: Patient completed TRUS guided prostate biopsy.? Pathology demonstratedGleason 3+4 adenocarcinoma involving about 20% of 1/1 core in the right prostateapex, remaining biopsies were negative for involvement. Radiation Treatment History: No prior history of radiation therapy. No pacemaker. No diagnosis of radiosensitizing comorbidity. Interval History: Patient presents for follow up. He was initially seen about 4 months ago to discuss treatment options for intermediate risk prostate cancer, he ultimately decided not to pursue active treatment and wanted to check his PSA a few months later which came back much more elevated and he returns to discuss this result. He reports stability in his urinary symptoms. He has urgency almost always, incomplete emptying more than half the time, frequency less than half the time, intermittency and weak stream less than 1 time in 5 and denies straining. He has nocturia once per night. He has been on Flomax once per day for about the last year which have helped his symptoms. He denies leakage or incontinence. He denies dysuria or hematuria. He does report normal bowel function with a bowel movement about once per day, denies diarrhea or constipation. He had a colonoscopy within the last year he reports and it was he thinks normal. He denies rectal pain or bleeding. He denies cough, shortness of breath, chest pain, bone pain. He does stay very active in his daily life and completes all ADLs without any difficulty. He denies having other problems or concerns at this time. Review of Systems: A 12-point review of systems was completed and was negative except for what is noted in the HPI/Interval History and by the nurse. Physical Exam: Weight: 264 lbs 1 oz ECO KARNOFSKY SCORE: 70% CONSTITUTIONAL: Well-developed, well-nourished, and in no apparent distress. CARDIAC: Regular rate and rhythm. Normal S1, S2. No murmurs, rubs, or gallops. PULMONARY/CHEST: Lungs are clear to auscultation and percussion bilaterally. No wheezes, rhonchi, or crackles noted. No increased work of breathing. EXTREMITIES: Full range of motion in all four extremities. No evidence of edema. YOMAIRA: Deferred PSYCHIATRIC: Appropriate mood and affect for the clinical situation. 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 Plan: Patient presents for follow-up after interval PSA. His PSA increased from 8.39 to 16.16. We reviewed that this does technically increase his disease to unfavorable intermediate risk and also is a pretty substantial increase in the last 6 months. We again reviewed treatment options but also discussed potentially completing a PSMA PET scan initially to ensure there is no evidence of disease outside the prostate. I reviewed that his predicted lymph node risk is about 5% and seminal vesicle invasion risk is about 6% he is in the [facility] nomogram. We did review treatment options with a focus on radiation. Specifically, for external beam radiation therapy I discussed that the use of moderate hypofractionation has been compared to conventional long course radiation in several trials and demonstrated equivalent disease results and verysimilar risk of toxicity, this has now been recognized as an acceptable treatment recommendation as published BHASKAR/ASCO/AUA consensus guideline.? I also reviewed the use of SBRT and that this is considered to be an acceptable alternative to hypofractionated radiation therapy for low and intermediate risk patients understanding that this treatment option may potentially have higher toxicity profile specially in the short-term.? I reviewed the use of fiducial markers to improve target localization during treatment and also the use of space OAR has been shown to improve risk of rectal toxicity.? Following placement of space OAR and fiducials I would recommend MRI for improved anatomical delineation for treatment planning.? IPSS of 14 and on flomax once per day. I reviewed the logistics of radiation therapy including CT simulation, treatmentplanning, and fractionated radiation therapy for 5 fractions given every other day.? I stressed the importance of coming to all treatments and to not unnecessarily prolong the treatment course.? I also reviewed recommendations of completing treatment with a full bladder as a strategy to improve normal tissue toxicity.? I reviewed the potential acute and chronic toxicities from prostate radiation and these include but are not limited to fatigue, skin irritation, rectal irritation/discomfort, loose stool/diarrhea, urinary frequency/dysuria, rectal ulcer, pain/bleeding with bowel movements, persistent urinary frequency, urethral stricture, erectile dysfunction, retrograde ejaculation, weakening of pelvic bones and increased fracture risk, and risk of secondary carcinoma.? The relative estimated risk and time course as well as potential management of thesetoxicities was discussed.? We will complete PSMA PET scan and then we will plan to have him follow-up with urology for fiducial marker and space OAR placement and then we will have him return for CT simulation and MRI for treatment planning, he prefers to have SBRT if possible.? He was instructed to call with any further questions or concerns in the interim. Thank you for allowing me to participate in the management and care of your patient. If I may answer any questions in the interim, please do not hesitate tocontact me at any time. Arvind Zuluaga DO, MS Therapeutic Strategy Lead, Department of Radiation Oncology [facility] Coding Level of Care Code Off vis,est,level 3 Diagnoses Cancer of prostate with intermediate recurrence risk (stage T2b-c or Precious 7 or PSA 10-20) C61 11/08/24 1501 <Electronically signed by Arvind Zuluaga DO> Date _ Arvind Zuluaga DO Cosigner Signature: Date (if applicable) CC: ~ [facility] Work Phone: Discharge summary Note Date & Type Note Facility Discharge summary Note Date/Time November 30, 2024 11:50am [facility] Records Department [address] [place] [address] Emergency Department Summary 11/30/24 MR#: [id number] Acct: [id number] Name: MARCRAMOS Munson Rep #:[id number] : 1950 74 From: Dex oLpes MD PCP: Care Physician,No Primary Status :REG ER Location: ED HPI History of Present Illness Chief Complaint: Hypertension Detail of Chief Complaint: Elevated blood pressure reading prior to surgery Informant: patient and other (Hospital staff from preanesthesia/presurgery reunit called because of elevated blood pressure) Onset/Context/Timing Onset: Today Context: - (Presumed sudden) Timing: Continuous Quality: Elevated blood pressure Location: Cardiovascular Current Severity: Moderate Maximum Severity: Moderate Worsened by: Patient did not take his morning hypertensive meds because he was scheduled Relieved by: Not applicable Associated Symptoms Associated Symptoms: Slight bifrontal headache Narrative Narrative: Patient is a 74-year-old male. He has history of hypertension and BPH. He was scheduled to have urologic surgery by Dr. Walter. His blood pressure was elevated. He was sent to the ER. We were informed that he has not taken his medicine in 6 months. He has not seen a doctor in 6 months because his doctor retired. He reports he is compliant with his medication. He did not take this morning's meds because he was instructed not to. He denies double vision, blurred vision loss of vision. Eyes baker ears decreased hearing. Nuys trouble with speech or swallowing. Denies chest pressure, tach, tightness, heaviness, pain or dyspnea. Nuys dyspnea on exertionor orthopnea. He denies abdominal pain, nausea or vomiting. He denies skin lesion. He does have swelling of his legs. He states he is on a water pill. He denies orthopnea or PND. Prior similar symptoms: No Recent Illness/Hospitalization: No PFSH PFSH Medical History Wears dentures Wears glasses Alcohol use Heartburn Former smoker Cardiology follow-up encounter Eyelid abnormality BPH (benign prostatic hyperplasia) Nocturia Elevated PSA Urinary incontinence Hypertension Prostate cancer Home Medications ?Medication ?Instructions ?Recorded ?Last Taken ?Type amlodipine 5 mg tablet 5 mg PO QDAY 06/23/24 History losartan 50 mg-hydrochlorothiazide 1 tab PO QDAY 06/2311/29/24 History 12.5 mg tablet tamsulosin 0.4 mg capsule 0.4 mg PO QDAY 06/23/2409/16 History clonidine HCl 0.1 mg tablet 0.1 mg PO BID #60 tabs 10/17 Unknown Rx Allergy/AdvReac Type Severity Reaction Status Date / Time No Known Allergies Allergy Verified 11/30/24 07:57 Family History Father Cancer skin Brother Heart problem Surgical History Hx of prostate biopsy Hx of hernia repair Hx of cataract extraction Social History Smoking Status: Former smoker alcohol intake: never ROS ROS ED Constitutional Constitutional ED: Denies chills, fever(s), subjective, sweats or weight loss Eyes Eyes: Denies blurry vision, change in vision or diplopia ENT ENT ED: Denies rhinorrhea or sore throat Cardiovascular Cardiovascular: Denies chest pain, orthopnea, palpitations or paroxysmal nocturnal dyspnea Respiratory/Chest Respiratory/Chest: Denies cough, dyspnea, dyspnea on exertion, orthopnea or paroxysmal nocturnal dyspnea Gastrointestinal Gastrointestinal: Denies abdominal pain, nausea or vomiting Musculoskeletal Musculoskeletal: Denies arthralgias, back pain or myalgias Integumentary Denies rash Neurologic Neurologic: Reports headache(s); Denies paresthesias or weakness Hematologic/Lymphatic Hematologic/Lymphatic: Reports systems reviewed and no addt'l complaints, exceptas documented EXAM Physical Exam Const Vital Signs: 11/30/24 07:54 11/30/24 09:53 11/30/24 10:37 Temperature 98.9 F Temperature Source Oral Pulse Rate 95 74 82 Respiratory Rate 18 16 Blood Pressure 182/102 H 196/127 H 190/103 H Blood Pressure Mean 128 150 132 Pulse Ox 97 100 Oxygen Delivery Method Room Air Room Air Positive well nourished and well developed Constitutional Narrative: Blood pressure is slightly elevated 182/102. Repeat was 214/124. Patient appears no distress. BMI is 37. General Appearance ED: well developed; Negative for pallor HEENT Reports moist mucous membranes HEENT Narrative: Head is atraumatic and normocephalic. Ears normal Eyes PERRL and EOMs intact bilaterally General Eye ED: Negative for pale conjunctiva or scleral icterus Neck no lymphadenopathy, supple and no JVD Chest Wall inspection of chest normal and palpation of chest normal Resp normal respiratory effort and clear to auscultation bilaterally Cardio regular rate, regular rhythm, S1 normal heart sound, S2 normal heart sound and no murmurs GI normal to inspection, nondistended, normoactive bowel sounds, non-tender, non-distended and no masses Extremity Extremity Narrative: Otherwise unremarkable. General Extremety ED: Yes edema General Extremity: edema Neuro CN's II-XII intact bilaterally and no sensory deficits noted Sensorium / Orientation: alert Motor Exam: strength 5/5 throughout Psych mental status grossly normal Skin no rashes or lesions noted, no wounds and skin turgor normal General Skin Exam: elasticity normal; Negative for jaundice or pallor MDM MDM MDM Narrative Medical decision making narrative: Patient with asymptomatic hypertension. Suspect this is due to the fact that hedid not take his amlodipine, losartan hydrochlorothiazide combination. Will obtain blood work since he has not had any recently. Will monitor his blood pressure. He will need follow-up with a doctor since his doctor retired and thedoctor was assigned to left the area. As 0900 blood pressure was 195/135. Will order patient's morning antihypertensive meds. Lab Data Labs: Laboratory Results - last 24 hr 11/30/24 11/30/24 08:10 09:00 Sodium 139 Potassium 4.0 Chloride 101 Carbon Dioxide 27.6 Anion Gap 11 BUN 15 Creatinine 1.04 Estim Creat Clear Calc 82.28 Est GFR (MDRD) Non-Af 76 BUN/Creatinine Ratio 14.0 Glucose 115 H Calcium 9.3 Urine Color Yellow Urine Clarity Clear Urine pH 7.0 Ur Specific [place] 1.010 Urine Protein 15 H Urine Glucose (UA) Normal Urine Ketones Negative Urine Occult Blood Negative Urine Nitrite Negative Urine Bilirubin Negative Urine Urobilinogen Normal Ur Leukocyte Esterase Negative Urine RBC 0 SEEN Urine WBC 0 SEEN Ur Squamous Epith Cells 0 SEEN Urine Bacteria 0 SEEN Urine Mucus 0 SEEN Treatment and Re-Evaluation :: The patient was reassessed blood pressure was 194/127. Clonidine was ordered and will reassess. Patient was reassessed at 1145. His blood pressure is 148/104. Will discharge with prescription for clonidine. He has an appointment this coming Thursday to see Dr. Mireya dejesus. Discharge Plan Triage Chief Complaint: Hypertension ED Provider: Dex Lopes Dx/Rx/DC Orders Clinical Impression: Asymptomatic hypertensive urgency, Prostate cancer Instructions: ED High Blood Pressure Hypertension Prescriptions: New clonidine HCl 0.1 mg tablet 0.1 mg PO BID Qty: 60 0RF No Action amlodipine 5 mg tablet 5 mg PO QDAY losartan-hydrochlorothiazide 50-12.5 mg tablet 1 tab PO QDAY tamsulosin 0.4 mg capsule 0.4 mg PO QDAY Primary Care Provider: Care Physician,No Primary Referrals: Santiago Fernández MD [Non-Staff, Family Practice] - Keep Leny appointment Care Physician,No Primary [Primary Care Provider, Medical] Print Language: Azeri Disposition Disposition: Home, Self Care What to do if you have Problems For any increased pain, shortness of breath, bleeding, nausea or vomiting, chestpain, or any unexpected problems, contact your Primary Care Provider. Call [facility] ([phone]) or report to the closest Emergency Room. Call 911 if necessary. 11/30/24 1150 <Electronically signed by Dex Lopes MD> Cosigner Signature (if applicable): CC: No Primary Care Physician ~ Signed [facility] Work Phone: Evaluation note Note Date & Type Note Facility Evaluation note No assessment information availa ble [facility] Work Phone: Progress note Note Date & Type Note Facility Progress note Note Date/Time November 18, 2024 9:56am [facility] [address] [address] OFFICE VISIT Date of Service: 11/18/24932 MR#: [id number] Acct: [id number] Name: ROSALVA TRANODELL Munson Rep #: [id number] : 1950 From: Arvind chambers DO Age/Sex: 74/M [place] [facility] [place]: Signed Intake Vital Signs 11/08/24 14:09 11/18/24 09:36 Height 5 ft 10 in 5 ft 10 in Weight: 257 lb 2 oz BMI 36.8 BP 179/89 H Respiration 18 Pulse 83 Pulse Source Monitor Temp 98.1 F Temperature Source Temporal Artery Pulse Oximetry (%) 94 Oxygen Delivery Method room air Intake Accompanied by: Self Is patient in pain?: No Allergies No Known Allergies Allergy (Verified 11/18/24 09:36) Medications ?Medication ?Instructions ?Recorded ?Confirmed ?Type amlodipine 5 mg tablet 5 mg PO QDAY 06/23/24 History losartan 50 mg-hydrochlorothiazide 1 tab PO QDAY 06/2311/18/24 History 12.5 mg tablet tamsulosin 0.4 mg capsule 0.4 mg PO QDAY 06/23/2410/25 History Have you fallen in the past year?: No Central Venous Access Central Venous Access: No PFSH PFSH Medical History Eyelid abnormality BPH (benign prostatic hyperplasia) Nocturia Elevated PSA Urinary incontinence Hypertension Prostate cancer Home Medications ?Medication ?Instructions ?Recorded ?Last Taken ?Type amlodipine 5 mg tablet 5 mg PO QDAY 06/23/24 Unknow n History losartan 50 mg-hydrochlorothiazide 1 tab PO QDAY 06/23 Unknown History 12.5 mg tablet tamsulosin 0.4 mg capsule 0.4 mg PO QDAY 06/23/24 Unkn own History Allergy/AdvReac Type Severity Reaction Status Date / Time No Known Allergies Allergy Verified 11/18/24 09:36 Family History Father Cancer skin Brother Heart problem Surgical History Hx of prostate biopsy Hx of hernia repair Hx of cataract extraction Social History Smoking Status: Former smoker alcohol intake: never Diagnosis: Ramos Tran is a 74 year-old male diagnosed with 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 History of Present Illness: 05/30/2024: Patient completed TRUS guided prostate biopsy.? Pathology demonstratedGleason 3+4 adenocarcinoma involving about 20% of 1/1 core in the right prostateapex, remaining biopsies were negative for involvement. 11/15/2024: Patient completed PSMA PET scan.? This demonstrated foci of activity within the prostate gland suspicious for neoplasm.? No other evidence of diseaseis noted. Radiation Treatment History: No prior history of radiation therapy. No pacemaker. No diagnosis of radiosensitizing comorbidity. Interval History: Patient presents for follow up. He was initially seen about 4 months ago to discuss treatment options for intermediate risk prostate cancer, he ultimately decided not to pursue active treatment and wanted to check his PSA a few months later which came back much more elevated and he now returns after completing PSMA PET. He reports stability in his urinary symptoms. He has urgency more than half the time, incomplete emptying and weak stream less than half the time,frequency less than 1 time in 5 and denies intermittency or straining. He has nocturia twice per night. He has been on Flomax once per day for about the lastyear which have helped his symptoms. He denies leakage or incontinence. He denies dysuria or hematuria. He does report normal bowel function with a bowel movement about once per day, denies diarrhea or constipation. He had a colonoscopy within the last year he reports and it was he thinks normal. He denies rectal pain or bleeding. He denies cough, shortness of breath, chest pain, bone pain. He does stay very active in his daily life and completes all ADLs without any difficulty. He denies having other problems or concerns at this time. IPSS: 11, flomax q Review of Systems: A 12-point review of systems was completed and was negative except for what is noted in the HPI/Interval History and by the nurse. Physical Exam: Weight: 257 lbs 2 oz ECO KARNOFSKY SCORE: 70% CONSTITUTIONAL: Well-developed, well-nourished, and in no apparent distress. CARDIAC: Regular rate and rhythm. Normal S1, S2. No murmurs, rubs, or gallops. PULMONARY/CHEST: Lungs are clear to auscultation and percussion bilaterally. No wheezes, rhonchi, or crackles noted. No increased work of breathing. EXTREMITIES: Full range of motion in all four extremities. No evidence of edema. YOMAIRA: Deferred PSYCHIATRIC: Appropriate mood and affect for the clinical situation. 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 Plan: Patient presents for follow-up after interval PSA. His PSA increased from 8.39 to 16.16. PSMA PET was then completed showing evidence of disease only within the prostate. We reviewed that this does technically increase his disease to unfavorable intermediate risk and also is a pretty substantial increase in the last 6 months. I reviewed that his predicted lymph node risk is about 5% and seminal vesicle invasion risk is about 6% he is in the [facility] nomogram. We did review treatment options with a focus on radiation. Specifically, for external beam radiation therapy I discussed that the use of moderate hypofractionation has been compared to conventional long course radiation in several trials and demonstrated equivalent disease results and very similar risk of toxicity, this has now been recognized as an acceptable treatment recommendation as published BHASKAR/ASCO/AUA consensus guideline.? I also reviewed the use of SBRT and that this is considered to be an acceptable alternative to hypofractionated radiationtherapy for low and intermediate risk patients understanding that this treatmentoption may potentially have higher toxicity profile specially in the short-term.? I reviewed the use of fiducial markers to improve target localization during treatment and also the use of space OAR has been shown to improve risk ofrectal toxicity.? Following placement of space OAR and fiducials I would recommend MRI for improved anatomical delineation for treatment planning.? IPSS of 14 and on flomax once per day. I reviewed the logistics of radiation therapy including CT simulation, treatmentplanning, and fractionated radiation therapy for 5 fractions given every other day.? I stressed the importance of coming to all treatments and to not unnecessarily prolong the treatment course.? I also reviewed recommendations of completing treatment with a full bladder as a strategy to improve normal tissue toxicity.? I reviewed the potential acute and chronic toxicities from prostate radiation and these include but are not limited to fatigue, skin irritation, rectal irritation/discomfort, loose stool/diarrhea, urinary frequency/dysuria, rectal ulcer, pain/bleeding with bowel movements, persistent urinary frequency, urethral stricture, erectile dysfunction, retrograde ejaculation, weakening of pelvic bones and increased fracture risk, and risk of secondary carcinoma.? The relative estimated risk and time course as well as potential management of thesetoxicities was discussed.? He would like to pursue SBRT, we will have him followup with urology for fiducial marker and space OAR placement and then we will have him return for CT simulation and MRI for treatment planning.? He was instructed to call with any further questions or concerns in the interim. Thank you for allowing me to participate in the management and care of your patient. If I may answer any questions in the interim, please do not hesitate tocontact me at any time. Arvind Zuluaga DO, MS Therapeutic Strategy Lead, Department of Radiation Oncology [facility] Coding Level of Care Code Off vis,est,level 3 Diagnoses Cancer of prostate with intermediate recurrence risk (stage T2b-c or [place] 7 or PSA 10-20) C61 11/18/24 0956 <Electronically signed by Arvind Zuluaga DO> Date _ Arvind Zuluaga DO Cosigner Signature: Date (if applicable) CC: Dr. Ermelinda Tate MD; Dr. Damion Walter MD ~ [facility] Work Phone: Reason for referral (narrative) Note Date & Type Note Facility Reason for referral (narrative) No reason for referral information available [facility] Work Phone: Summary Purpose Family History No Family History Records Found Relationship Condition Age at Onset Recorded Date/T laron father Malignant neoplasm Unknown brother Heart problem Unknown Advance Directives No Advanced Directives Records Found Advance Directive Response Recorded Date/ Time Do you have a Healthcare Power of Chauffeur [employer]? Yes November 30, 2024 8:00am Chief Complaint and Reason for Visit Chief Complaint Admit Date DISCUSS XRT November 08, 2024 1:14pm Reason for Visit Admit Date Cancer of prostate with inte rmediate recurrence risk (stage T2b-c or Gleaso November 08, 2024 1:14pm Chief Complaint Admit Date DISCUSS XRT November 08, 2024 1:14pm PYLARIFY November 15, 2024 9:33am Review PET November 18, 2024 9:32am Reason for Visit Admit Date Cancer of prostate with inte rmediate recurrence risk (stage T2b-c or Gleaso November 08, 2024 1:14pm Cancer of prostate with inte rmediate recurrence risk (stage T2b-c or Gleaso November 18, 2024 9:32am Chief Complaint Admit Date DISCUSS XRT November 08, 2024 1:14pm PYLARIFY November 15, 2024 9:33am Review PET November 18, 2024 9:32am hypertension November 30, 2024 7: 53am Additional Source Comments (unrecognized sect ion and content) No Status Records FoundNo Status Records FoundNo Status Records FoundNo Status Records FoundNo Status Records Found INFORMATION SOURCE (unrecogn ized section and content) DATE CREATED AUTHOR 06/19/2023 [facility] DATE CREATED AUTHOR AUTHOR'S ORGANIZ ATION 10/16/2023 [facility] ([place]) DATE CREATED AUTHOR AUTHOR'S ORGANIZ ATION 10/19/2024 [facility] DATE CREATED AUTHOR AUTHOR'S ORGANIZ ATION 10/21/2024 [facility] DATE CREATED AUTHOR AUTHOR'S ORGANIZ ATION 12/15/2024 [facility] Care Teams (unrecognized sec tion and content) Team Status: Active Member Role Status Dates Dr. Ermelinda Tate MD Primary Care Provider Active Team Status: Inactive Member Role Status Dates Dr. Ermelinda Tate MD Primary Care Provider Active Start: May 03, 2024 End: May 03, 2024 Milagro Mckeon Attending Provider Active Start : May 03, 2024 End: May 03, 2024 Milagro Mckeon Referring Provider Active Start : May 03, 2024 End: May 03, 2024 Team Status: Inactive Member Role Status Dates Dr. Ermelinda Tate MD Primary Care Provider Active Start: May 30, 2024 End: May 30, 2024 Dr. Damion Walter MD Attending Provider Active Start: May 30, 2024 End: May 30, 2024 Dr. Damion Walter MD Referring Provider Active Start: May 30, 2024 End: May 30, 2024 Team Status: Active Member Role/Relationship Status Dates Dr. Ermelinda Tate MD Primary Care Provider Active Team Status: Inactive Member Role/Relationship Status Dates Dr. Ermelinda Tate MD Primary Care Provider Active Start: November 08, 2024 End: November 08, 2024 Dr. Ermelinda Tate MD Referring Provider Active Start: November 08, 2024 End: November 08, 2024 Dr. Arvind Zuluaga DO Attending Provider Active Start: November 08, 2024 End: November 08, 2024 Team Status: Active Member Role/Relationship Status Dates Dr. Ermelinda Tate MD Primary care physician Active Team Status: Inactive Member Role/Relationship Status Dates Dr. Ermelinda Tate MD Primary care physician Active Start: November 08, 2024 End: November 08, 2024 Dr. Ermelinda Tate MD Referring Provider Active Start: November 08, 2024 End: November 08, 2024 Dr. Arvind Zuluaga DO Attending physician Active Start: November 08, 2024 End: November 08, 2024 Team Status: Active Member Role/Relationship Status Dates Dr. Ermelinda Tate MD Primary care physician Active Start: November 15, 2024 Dr. Arvind Zuluaga DO Attending physician Active Start: November 15, 2024 Dr. Arvind Zuluaga DO Referring Provider Active Start: November 15, 2024 Team Status: Inactive Member Role/Relationship Status Dates Dr. Ermelinda Tate MD Primary care physician Active Start: November 18, 2024 End: November 18, 2024 Dr. Ermelinda Tate MD Referring Provider Active Start: November 18, 2024 End: November 18, 2024 Dr. Arvind Zuluaga DO Attending physician Active Start: November 18, 2024 End: November 18, 2024 Team Status: Active Member Role/Relationship Status Dates No Primary Care Physician Primary care physician Activ e Team Status: Inactive Member Role/Relationship Status Dates Dr. Dex Lopes MD Emergency Department Physician Active Start: November 30, 2024 End: November 30, 2024 No Primary Care Physician Primary care physician Activ e Start: November 30, 2024 End: November 30, 2024 Goals (unrecognized section and content) Goals may be documented in a n alternate sectionGoals may be documented in an alternate sectionGoals may be documented in an alternate sectionGoals may be documented in an alternate sectionGoals may be documented in an alternate section FOR RECORDS PERTAINING TO PATIENTS WHO ARE OR HAVE BEEN ENROLLED IN A CHEMICAL DEPENDENCY/SUBSTANCEABUSE PROGRAM, SOME INFORMATION MAY BE OMITTED. This clinical summary was aggregated from multiple sources. Caution should be exercised in using it in the provision of clinical care. This summary normalizes information from multiple sources, and as a consequence, information in this document may materially change the coding, format and clinical context of patient data. In addition, data may be omitted in some cases. CLINICAL DECISIONS SHOULD BE BASED ON THE PRIMARY CLINICAL RECORDS. [facility]. provides no warranty or guarantee of the accuracy or completeness of information in this document.
[2024-12-16] MEDS: Lactated Ringers 1,000 ML 15 ML IV (06:47)
--- NOTE | 2024-12-16 07:20 | PCM.PRE.AN2 ---
ASA Classification* ASA Classification ASA Classification: 3 Assessment & Plan Anesthesia* Anesthesia Assessment Anesthesia Assessment: Discussed sedation and/or anesthesia options, risks, benefits, and alternatives with patient/parents/legal guardian/POA. Questions invited. The patient/parents/legal guardian/POA seems to understand and agrees to proceed with anesthesia plan. Reviewed the physical assessment, medical history, allergy history and patient home medications list prior to surgery/procedure/anesthetic and documented any changes. Performed airway and anesthesia risk assessments. Anesthesia Type Anesthesia Type: General History Source History Obtained from:: Patient and Chart Anesthesia Focused Assessment* Temperature: 98.0 F Pulse Rate: 76 Blood Pressure: 143/94 Respiratory Rate: 18 Pulse Ox: 96 Oxygen Delivery Method: Room Air Airway Assessment Mouth opens: >3 cm Mallampati Score: III Teeth Condition: Upper Neck Range of motion (ROM): Full ROM Labs Anesthesia Preop lab: CBC CHEMISTRY Potassium, (3.3-5.1) 4.0 mmol/L 11/30/24, 08:10 Sodium, (133-145) 139 mmol/L 11/30/24, 08:10 BUN, (4-19) 15 mg/dL 11/30/24, 08:10 Creatinine, (0.70-1.20) 1.04 mg/dL 11/30/24, 08:10 Glucose, (70-99) 115 mg/dL H 11/30/24, 08:10 COAG Pre-Assessment Diagnosis/Proposed Procedure Planned Operative Procedure(s): SPACE OAR Anesthesia History Anesthesia History - senior training specialist: Anesthesia History - senior training specialist Hx Hospitalization No 11/24/24 13:02 Any Problems With Anesthesia No 11/24/24 13:02 Cholinesterase deficiency No 11/24/24 13:02 You/Your Family Experience No 11/24/24 13:02 fever (hyperthermia) with Relationship Recent Exposure to Contagious No 12/16/24 06:25 Disease Does patient have nerve No 11/24/24 13:02 stimulator Patient instructed to have device shut off --Does patient have Pacemaker No 12/16/24 06:25 or ICD? When Was Last Pacemaker Check QUESTION #4 FULL TEXT: You/Your Family Experience fever (hyperthermia) with Anesthesia Any additional information?: No Last Oral Intake Last Oral intake: Last Oral Intake NPO since 19:00 12/16/24 06:25 Meds taken in AM with sips of Yes 12/16/24 06:25 water? Meds patient instructed to amlodipine, clonidine, 12/16/24 06:25 take am of surgery Tamsulosin Any additional information?: No PONV PONV - senior training specialist: PONV - senior training specialist Female No 11/24/24 13:02 HX of Motion Sickness No 11/24/24 13:02 HX of N/V After Surgery No 11/24/24 13:02 Non-Smoker Yes 11/24/24 13:02 Duration of Surgery greater No 11/24/24 13:02 than 60 minutes Number of Risk Factors 1 11/24/24 13:02 PONV Score Low Risk 11/24/24 13:02 Any additional information?: No Height & Weight Height & Weight: Anesthesia: Height & Weight Height 5 ft 10 in 12/16/24 06:25 Weight: 117 kg 12/16/24 06:25 Body Mass Index (BMI) 37.0 12/16/24 06:25 Respiratory Assessment Respiratory Assessment - senior training specialist: Respiratory Tract Infection Hx - senior training specialist Hx Respiratory Tract Infection No 11/24/24 13:02 Any additional information?: No STOP Sleep Apnea STOP Sleep Apnea - senior training specialist: STOP Sleep Apnea - senior training specialist Hx Hypertension Yes: CONTROLLED WITH MEDS 11/24/24 13:02 Hx Sleep Apnea No 11/24/24 13:02 CPAP BIPAP Do you snore loudly (louder No 11/24/24 13:02 than talking or can be heard Do you often feel tired/ No 11/24/24 13:02 fatigued/ sleepy during daytime? Has anyone observed you stop No 11/24/24 13:02 breathing during sleep? STOP Results Negative 11/24/24 13:02 QUESTION #5 FULL TEXT : Do you snore loudly (louder than talking or can be heard through closed doors)? 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 Specify any problems Hx of Preganancy in last 3 N/A 11/24/24 13:02 Months Nurse Filling Out Transfusion [email or web address] 11/24/24 13:02 & Questions: Date: 11/24/24 11/24/24 13:02 Time: 13:06 11/24/24 13:02 Patient unable to answer at this time (ie. confused, unrespo Any additional information?: No /Reproduction History /Reproductive History - senior training specialist: /Reproductive Hx- senior training specialist Hx Now No 11/24/24 13:02 Gestational Age (in weeks): EDC: Hx Hx Para Hx Section SAB No 11/24/24 13:02 Any additional information?: No Active Medications Active Medications: Current Medications Generic Name Dose Route Start Last Admin Trade Name Freq PRN Reason Stop Dose Admin Cefazolin Sodium 2 gm/ Sodium 110 mls @ 200 mls/hr 12/16/24 07:30 Chloride IV 12/16/24 08:02 INTRAOP ONE Lactated Ringer's 1,000 mls @ 15 mls/hr 12/16/24 06:15 12/16/24 06:47 IV 15 mls/hr .Q48H MIGUELINA Administration PFSH Medical History Wears dentures Wears glasses Alcohol use Heartburn Former smoker Cardiology follow-up encounter Eyelid abnormality BPH (benign prostatic hyperplasia) Nocturia Elevated PSA Urinary incontinence Hypertension Prostate cancer Home Medications ?Medication ?Instructions ?Recorded ?Last Taken ?Type amlodipine 5 mg tablet 5 mg PO QDAY 06/23/24 12/16/24 History losartan 50 mg-hydrochlorothiazide 1 tab PO QDAY 06/23/24 Unknown History 12.5 mg tablet tamsulosin 0.4 mg capsule 0.4 mg PO QDAY 06/23/24 12/16/24 History clonidine HCl 0.1 mg tablet 0.1 mg PO BID #60 tabs 11/30/24 12/16/24 Rx Allergy/AdvReac Type Severity Reaction Status Date / Time No Known Allergies Allergy Verified 12/16/24 06:25 Family History Father Cancer skin Brother Heart problem Surgical History Hx of prostate biopsy Hx of hernia repair Hx of cataract extraction Social History Smoking Status: Former smoker alcohol intake: never Review of Systems (Anesthesia) ROS Narrative System reviewed and no additional complaints, except as documented.
[2024-12-16] MEDS: Lactated Ringers 1,000 ML 1000 ML IV (07:28)
[2024-12-16] MEDS: Cefazolin 1 GM/5 ML Vial 2 GM IV (07:28)
[2024-12-16] MEDS: Lidocaine 1% (5 ml sdv) 5 ML Vial IV (07:32)
[2024-12-16] MEDS: fentaNYL 100 MCG/2 ML Ampul IV (07:57)
--- NOTE | 2024-12-16 08:05 | PCM.DC ---
Discharge Instructions DC O2, CPAP, BIPAP needs Home O2 Discharge instructions: No Dressing / Incision Discharge Activity: Return to Normal Activity and May Not Drive (while taking narcotic pain medications.) Dressing / Incision Call your doctor if you observe: Fever of 101 or Higher Follow Up Care Please Follow Up With: Damion Walter MD When: Call [phone] for an appointment Test Results: Test results from this visit will be discussed in further detail at your follow-up appointment, if applicable. Discharge Plan Admission Primary Reason for Your Visit: spacer gel Attending Provider: Damion Walter Primary Care Provider: Care Physician,No Primary Instructions Print Language: Montserratian Discharge Orders/Prescriptions Prescriptions: Continued amlodipine 5 mg tablet 5 mg PO QDAY losartan-hydrochlorothiazide 50-12.5 mg tablet 1 tab PO QDAY tamsulosin 0.4 mg capsule 0.4 mg PO QDAY clonidine HCl 0.1 mg tablet 0.1 mg PO BID Qty: 60 0RF Referrals / Follow Up: Care Physician,No Primary [Primary Care Provider, Medical] Disposition Disposition (needs filled in before D/C Order can be placed): Home, Self Care
--- NOTE | 2024-12-16 08:05 | PCM.OPRPT ---
Operative Report (Standard) Operative Information Date of Procedure: 12/16/24 Pre-Operative Diagnosis: Prostate cancer Post-Operative Diagnosis: Same Surgery/Procedure Performed: Placement of gold markers and spacer gel commercial real estate appraiser: No Type of Anesthesia: General RN Documented Start/Stop Times: Operation Date: 12/16/24 07:30 Case Time Into Pre-Op 12/16/24 06:02 Out of Pre-Op 12/16/24 07:23 Anesthesia Start 12/16/24 07:28 Into Room 12/16/24 07:28 Procedure Start 12/16/24 07:48 Procedure End 12/16/24 07:56 Anesthesia End 12/16/24 08:00 Out of Room 12/16/24 08:00 Procedure Start Time: 07:48 Procedure Stop Time: 08:05 Select all DRAINS/GRAFTS/IMPLANTS that apply: None Estimated Blood Loss: None Specimen collected: No Description of surgery: In the preoperative area I reviewed with the patient how the procedure is done we talked about the risk of the procedure including the risk of infection, bleeding, migration of the spacer gel, the patient is planning to have radiation to the prostate he understands that the spacer gel has demonstrated benefit in reducing the risk of toxicity from the ration radiation to the rectum but there is no guarantees that this spacer gel will prevent any serious complications or toxicity to the rectum or bowels. After reviewing this with the patient and his family organ to proceed with placement of a spacer gel matrix. Patient was taken back to the operating room after smooth induction of anesthesia he was placed supine on the table. The genitals and perineum were prepped and draped in usual sterile fashion. The penis and testicles were prepped and draped in usual sterile fashion, ultrasound probe was placed into the rectum and biplanar ultrasound was performed on the prostate. Identified the base mid and apex of the prostate identified the transition zone prostate. Then using a needle the first cut out marker was placed into the right base of the prostate, the second cut out marker was placed in the left base of the prostate, and the third core marker was placed in the right apex of the prostate after all 3 markers were placed the placement of the markers were confirmed by ultrasonography. I then introduced a biplanar ultrasound probe into the rectum and performed ultrasonography and identified the Denonvilliers' fascia the prostate mid base and apex and seminal vesicles. The spacer gel mix was then prepared on the back table per manufactures instruction. Under ultrasound guidance in the midline perineum a bevel needle down we advanced through the perineum below the prostate into the space of Denonvilliers' fascia. This space which could be identified by ultrasound with a bright white layer between the prostate and the rectum. I then injected a puff of normal saline to identify the space further. After I confirmed that the needle was in the correct space in the mid prostate and the space of Denonvilliers' fascia between the rectum and the prostate. Then over the course of 15 seconds the gel matrix was injected slowly there was nice separation between the prostate and the rectum at the gel matrix was injected. The position of the gel matrix was confirmed by ultrasound. Then the injection needle was removed intact. Patient's perineum was cleaned patient was taken out of stirrups and then taken back to the PACU in good condition. Surgical Findings: Markers placed in prostate spacer gel Complications Complications: No Admit VTE Documentation VTE Present on Admission: No VTE Mechan Device Prophylaxis: SCD's VTE Pharm Prophylaxis ordered?: No
--- NOTE | 2024-12-16 08:08 | PCM.POST.ANE ---
Anesthesia: Postop Eval I Current Vital Signs Temperature: 97.4 F Pulse Rate: 95 Blood Pressure: 145/103 Respiratory Rate: 18 Pulse Ox: 94 Oxygen Delivery Method: Nasal Cannula Assessment Airway patent: Yes Spontaneous unlabored respirations: Yes nausea: No Vomiting: No Anesthesia Complication: No Fluid Hydration Crystalloid volume administer (ml): 600 Total IV fluid infused: 600 Progress Note Anesthesia document: Postop Eval 1 completed: Yes
--- NOTE | 2024-12-16 12:03 | POSTOPAN2_ITS ---
Anesthesia Postop Eval I Sum Postop Eval Completion status Anesthesia document: Postop Eval 1 completed: Yes Anesthesia Postop Eval I Summary Anesthesia Postop Eval I Summary: Anesthesia Postop Eval I: Assessment Summary Airway patent Yes 12/16/24 08:09 [email or web address] Spontaneous unlabored Yes 12/16/24 08:09 MARKETING [email or web address] respirations Mental status nausea No 12/16/24 08:09 [email or web address] [email or web address] Vomiting No 12/16/24 08:09 MARKETING [email or web address] Anesthesia Postop Eval I: Fluid Summary Crystalloid volume administer 600 12/16/24 08:09 MARKETING [email or web address] (ml) Colloids volume administered ( ml) Blood Product volume administered (ml) Total IV fluid infused 600 12/16/24 08:09 MARKETING [email or web address] Anesthesia Postop Eval I: Summary Notes Anesthesia Complication No 12/16/24 08:09 MARKETING [email or web address] Anesthesia Complication Comment: Post-operative progress note Anesthesia: Postop Eval II Evaluation Mental status: Awake Pain Level: 0 nausea: No Vomiting: No
--- NOTE | 2024-12-16 12:03 | PCM.POSTANE2 ---
Anesthesia Postop Eval I Sum Postop Eval Completion status Anesthesia document: Postop Eval 1 completed: Yes Anesthesia Postop Eval I Summary Anesthesia Postop Eval I Summary: Anesthesia Postop Eval I: Assessment Summary Airway patent Yes 12/16/24 08:09 FRUIT [email or web address] [email or web address] Spontaneous unlabored Yes 12/16/24 08:09 FRUIT [email or web address] [email or web address] respirations Mental status nausea No 12/16/24 08:09 FRUIT [email or web address] [email or web address] Vomiting No 12/16/24 08:09 FRUIT [email or web address] [email or web address] Anesthesia Postop Eval I: Fluid Summary Crystalloid volume administer 600 12/16/24 08:09 FRUIT [email or web address] [email or web address].ABAR (ml) Colloids volume administered ( ml) Blood Product volume administered (ml) Total IV fluid infused 600 12/16/24 08:09 FRUIT [email or web address] [email or web address].ABAR Anesthesia Postop Eval I: Summary Notes Anesthesia Complication No 12/16/24 08:09 FRUIT [email or web address] [email or web address].ABAR Anesthesia Complication Comment: Post-operative progress note Anesthesia: Postop Eval II Evaluation Mental status: Awake Pain Level: 0 nausea: No Vomiting: No
== END 2024-12-16 08:52 | disposition home or self-care (01) ==
LOC: SDC 05:54 → AC 05:54
PROVIDERS: Referring Provider Urology; Visit Provider Urology
PROC: (CPT 55874; principal; 2024-12-16 07:15)
DX: C61 Malignant neoplasm of prostate (principal); Z79.899 Other long term (current) drug therapy; I10 Essential (primary) hypertension; Z87.891 Personal history of nicotine dependence; R97.20 Elevated prostate specific antigen [PSA]
CPT/HCPCS: 55874; 55876; A4648; C1889; J2405

== ENCOUNTER → 2024-12-21 | Outpatient (CLI) | payer MEDICARE, SELFPAY ==
--- NOTE | 2024-12-21 11:52 | MRI_ITS ---
EXAM: MRI/Pelvis W/WO Contrast
== END | disposition home or self-care (01) ==
PROVIDERS: Referring Provider Student in an Organized Health Care Education/Training Program; Visit Provider Student in an Organized Health Care Education/Training Program
DX: C61 Malignant neoplasm of prostate (principal)
CPT/HCPCS: 72197; A9575; A4216